=== PATIENT | male | born 1945 | race Caucasian/White ===

== ENCOUNTER 2021-04-10 19:54 | Inpatient (IN) | payer MEDICARE, OTHER ==
[~2021-04-10] VITALS: Ht 172.7 cm; Wt 85.3 kg
--- NOTE | 2021-04-10 20:25 | NUR ---
SISSY, C/O SPO2 IN THE 40'S AND SOB X3DAYS. SPO2 AT TRIAGE 80%. PATIENT WAS PLACED ON A NONREBREATHER AND RT WAS CALLED. PATIENT ALERT AND ORIENTED X3. AMBULATORY BUT BROUGHT IN ON A WHEELCHAIR. SON AT BEDSIDE
[2021-04-10] MEDS ORDERED: ASPIRIN 325 MG TABLET PO ONE (20:30)
[2021-04-10] MEDS ORDERED: SITA1TAB2 PO (20:36)
[2021-04-10] MEDS ORDERED: AZIT250T13 PO (20:37)
[2021-04-10] MEDS ORDERED: MEMA5TAB42 PO (20:38)
[2021-04-10] MEDS ORDERED: ROSU20TA2 PO (20:38)
[2021-04-10] MEDS ORDERED: FUROSEMIDE 40 MG/4 ML VIAL ONE (20:41)
[2021-04-10] MEDS ORDERED: NITROGLYCERIN 0.4 MG/TAB BOTTLE ONE (20:41)
[2021-04-10] MEDS ORDERED: ASPIRIN 325 MG TABLET ONE (20:41)
--- NOTE | 2021-04-10 20:43 | NUR ---
RAC #20G S/L; PATENT AND INTACT. BLOOD COLLECTED AND SENT TO LAB
--- NOTE | 2021-04-10 20:43 | NUR ---
PT ON NRB 15LPM TOLERATING AT 90%
--- NOTE | 2021-04-10 20:44 | NUR ---
RT AT BEDSIDE
--- NOTE | 2021-04-10 20:44 | NUR ---
BLOOD COLLECTED AND SENT TO LAB
--- NOTE | 2021-04-10 20:45 | NUR ---
COVID ANTIGEN SWAB COLLECTED AND SENT TO LAB
[2021-04-10] MEDS ORDERED: FUROSEMIDE 40 MG/4 ML VIAL IV ONE (21:00)
[2021-04-10] MEDS ORDERED: NITROGLYCERIN 0.4 MG/TAB BOTTLE SL ONE (21:00)
[2021-04-10 21:05] LABS: BASOPHILS # (AUTO) 0.1 K/uL (0.0-0.2); BASOPHILS % (AUTO) 0.4 % (0.0-2.0); EOSINOPHILS % (AUTO) 0.1 % (0.0-6.0); HEMATOCRIT 50 % (39-51); HEMOGLOBIN 15.9 g/dL (13.5-17.5); LYMPHOCYTES # (AUTO) 1.6 K/uL (0.8-4.8); LYMPHOCYTES % (AUTO) 11.1 % (20.0-44.0); MEAN CORPUSCULAR HGB CONC 32 g/dl (31.0-36.0); MEAN CORPUSCULAR VOLUME 90 fL (80-96); MONOCYTES # (AUTO) 0.9 K/uL (0.1-1.30); MONOCYTES % (AUTO) 6.4 % (2.0-12.0); NEUTROPHILS # (AUTO) 12.1 K/uL (1.8-8.9); PLATELET COUNT (AUTO) 349 K/uL (150-450); WHITE BLOOD COUNT (AUTO) 14.8 K/uL (4.3-11.0)
--- NOTE | 2021-04-10 21:07 | NUR ---
R D INTERN AT PT'S BEDSIDE
[2021-04-10 21:15] LABS: CALCIUM, SERUM 8.9 mg/dL (8.5-10.1); CARBON DIOXIDE 29 mmol/L (21-32); CHLORIDE 105 mmol/L (98-107); CREATININE 2.5 mg/dL (0.6-1.3); GLUCOSE 177 mg/dL (74-106); POTASSIUM 4.6 mmol/L (3.5-5.1); SODIUM SERUM 142 mmol/L (136-145); UREA NITROGEN, BLOOD 46 mg/dL (7-18)
[2021-04-10] MEDS ORDERED: ONDANSETRON HCL/PF 4 MG/2 ML VIAL ONE (21:38)
[2021-04-10] MEDS ORDERED: LIDOCAINE 1%-EPI 1:100,000 20 ML VIAL ONE (21:42)
[2021-04-10 21:50] LABS: BAND % (MANUAL) 1 % (0.0-5.0); LYMPHOCYTES % (MANUAL) 13 % (16-48); MONOCYTES % (MANUAL) 6 % (0-11.0); NEUTROPHILS % (MANUAL) 80 (42-76)
--- NOTE | 2021-04-10 21:52 | NUR ---
DR. LAW MEZA ON PHONE CALL WITH DR. REYES
[2021-04-10] MEDS ORDERED: ONDANSETRON HCL/PF - ER 4 MG/2 ML VIAL IV ONE (22:00)
--- NOTE | 2021-04-10 22:26 | NUR ---
DR LAW MEZA AT PT'S BEDSIDE FOR R PLEURAL THORACENTESIS; VERBAL CONSENT GIVEN. 1700ML FLUID REMOVED. PT TOLERATED PROCEDURE WELL. VSS
--- NOTE | 2021-04-10 22:51 | NUR ---
PERSON TO NOTIFIED 1.) ART (SON ) [phone] 2.) MARINE (DAUGHTER) [phone]
--- NOTE | 2021-04-10 23:08 | NUR ---
SHAKA CALI AT PT'S BEDSIDE FOR ABG
--- NOTE | 2021-04-10 23:17 | NUR ---
ABG RESULTED AND LAW AWARE
--- NOTE | 2021-04-10 23:25 | NUR ---
F/C 16FR INSERTED WITH URINE OUTPUT; PATENT AND INTACT
[2021-04-10] MEDS ORDERED: PROPOFOL 100 ML ONE (23:36)
--- NOTE | 2021-04-10 23:36 | NUR ---
MEDS FOR INTUBATION GIVEN
--- NOTE | 2021-04-10 23:37 | NUR ---
INTUBATION COMPLETED SIZE 7.5, 26 @ THE LIP
[2021-04-10] MEDS: PROPOFOL 100 ML IV PRN (23:38)
--- NOTE | 2021-04-10 23:38 | NUR ---
PT PUT ON VENT SETTINGS: FIO2 100 TV 550 RR 24 PEEP 5 PMAX 60 TOLERATING WELL AT SPO2 100%
--- NOTE | 2021-04-10 23:40 | NUR ---
RT NOTE LATE ENTRY Pt rec'd on NRB mask @ 15LPM. ABG taken and critical results given to MD. Pt orally intubated via ETT #7.5 secured @ 26CM at the lipline. Co2 detector color changed noted. Bilateral Breath sounds heard on auscultation. Pt placed on [facility] vent settings as charted. ALarms are set and audible. ETT is patent and secured. Waiting on chest Xray results. Post intubation ABG to be taken within 1hr. Ambu bag at bedside. Will continue to monitor closely. Addendum: 04/11/21 at 0049 by SHAKA HIRSCH RT Amended: Links added.
--- NOTE | 2021-04-10 23:40 | NUR ---
NGT 16FR INSERTED TO R NARE; POSITIVE PLACEMENT VIA AUSCULTATION & ASPIRATION.
[2021-04-11] MEDS ORDERED: Z GUARD REMEDY 4 OZ OINT TP PRN
[2021-04-11] MEDS ORDERED: IV NS 0.9% 1,000 ML IV PRN
[2021-04-11] MEDS ORDERED: MAG HYDROX/AL HYDROX/SIMETH 30 ML UDC PO PRN
[2021-04-11] MEDS ORDERED: ACETAMINOPHEN 325 MG TABLET PO PRN
[2021-04-11] MEDS ORDERED: ONDANSETRON HCL/PF 4 MG/2 ML VIAL IVP PRN
[2021-04-11] MEDS ORDERED: MAGNESIUM HYDROXIDE 30 ML UDC PO PRN
[2021-04-11] MEDS ORDERED: ZOLPIDEM TARTRATE 5 MG TABLET PO PRN
[2021-04-11] MEDS ORDERED: ETOMIDATE 2 MG/ML VIAL IV ONE ×2 (00:30→18:02)
[2021-04-11] MEDS ORDERED: ROCURONIUM BROMIDE 50 MG/5 ML IV ONE ×2 (00:30→18:02)
[2021-04-11] MEDS ORDERED: DEXTROSE 50%-WATER 50 ML DISP.SYRIN IV PRN ×2 (00:30→10:30)
[2021-04-11] MEDS ORDERED: INSULIN REGULAR, HUMAN 100 UNIT/ML 3 ML VIAL SQ PRN (00:30)
[2021-04-11] MEDS ORDERED: TRAM50TA2 PO (00:31)
[2021-04-11] MEDS ORDERED: PARO-64 PO (00:31)
[2021-04-11] MEDS ORDERED: ASPI-1420 PO (00:31)
[2021-04-11] MEDS ORDERED: AMLO1CAP2 PO (00:31)
[2021-04-11] MEDS ORDERED: FENO145T21 PO (00:31)
[2021-04-11] MEDS ORDERED: FOLI1CAP7 PO (00:31)
[2021-04-11] MEDS ORDERED: METO50TA16 PO (00:31)
[2021-04-11] MEDS ORDERED: CLOP75TA15 PO (00:31)
[2021-04-11] MEDS ORDERED: IBUP-1955 PO (00:31)
--- NOTE | 2021-04-11 00:32 | NUR ---
PT RETURNED TO ER FROM CT VIA ACLS PROTOCOL WITH RT
[2021-04-11] MEDS ORDERED: NOREPINEPHRINE 4 MG/4 ML AMPUL IV ONE (00:58)
[2021-04-11] MEDS ORDERED: NOREPINEPHRINE 8 MG in IV NS 0.9% 242 ML IV PRN ×2 (01:00→02:00)
[2021-04-11] MEDS: BLOOD SUGAR DIAGNOSTIC 1 EACH STRIP IN SCH ×6 (01:00→21:22)
[2021-04-11] MEDS ORDERED: ZOSYN IVPB 3.375 G in IV D5W 50ml IV SCH (02:00)
[2021-04-11] MEDS ORDERED: VANCOMYCIN 1.5 GM in IV D5W 500ml IV ONE (02:00)
[2021-04-11] MEDS ORDERED: PIPERACILLIN /TAZOBACTAM 3.375 G VIAL IV ONE (02:15)
[2021-04-11] MEDS ORDERED: VANCOMYCIN 1 GM VIAL ONE (02:15)
[2021-04-11] MEDS ORDERED: PROPOFOL 100 ML ONE ×4 (02:42→14:38)
[2021-04-11] MEDS ORDERED: VANCOMYCIN 500 MG VIAL ONE (02:47)
[2021-04-11 04:49] LABS: BASOPHILS # (AUTO) 0.1 K/uL (0.0-0.2); BASOPHILS % (AUTO) 0.2 % (0.0-2.0); HEMATOCRIT 47 % (39-51); HEMOGLOBIN 14.8 g/dL (13.5-17.5); LYMPHOCYTES # (AUTO) 1.6 K/uL (0.8-4.8); LYMPHOCYTES % (AUTO) 7.4 % (20.0-44.0); MEAN CORPUSCULAR HGB CONC 32 g/dl (31.0-36.0); MEAN CORPUSCULAR VOLUME 89 fL (80-96); MONOCYTES # (AUTO) 1.6 K/uL (0.1-1.30); MONOCYTES % (AUTO) 7.3 % (2.0-12.0); NEUTROPHILS % (AUTO) 85.1 % (43.0-81.0); PLATELET COUNT (AUTO) 335 K/uL (150-450); RED BLOOD CELL COUNT(AUTO) 5.28 MIL/uL (4.5-6.0); WHITE BLOOD COUNT (AUTO) 21.2 K/uL (4.3-11.0)
[2021-04-11 05:06] LABS: CALCIUM, SERUM 8.4 mg/dL (8.5-10.1); CARBON DIOXIDE 23 mmol/L (21-32); CHLORIDE 104 mmol/L (98-107); CREATININE 2.7 mg/dL (0.6-1.3); GLUCOSE 229 mg/dL (74-106); PHOSPHORUS 3.8 mg/dL (2.5-4.9); POTASSIUM 4.1 mmol/L (3.5-5.1); SODIUM SERUM 141 mmol/L (136-145); UREA NITROGEN, BLOOD 51 mg/dL (7-18)
[2021-04-11] MEDS ORDERED: FUROSEMIDE 40 MG/4 ML VIAL ONE ×2 (08:22→11:34)
[2021-04-11] MEDS ORDERED: HEPARIN SODIUM, PORCINE 5000 UNITS/1 ML VIAL ONE (08:22)
[2021-04-11] MEDS ORDERED: PANTOPRAZOLE 40 MG VIAL ONE (08:22)
[2021-04-11] MEDS: FUROSEMIDE 100 MG/10 ML VIAL IV SCH ×3 (08:30→15:43)
[2021-04-11] MEDS: PANTOPRAZOLE 40 MG VIAL IV SCH (08:31)
[2021-04-11] MEDS ORDERED: HEPARIN SODIUM, PORCINE 5000 UNITS/1 ML VIAL SQ ONE (09:00)
[2021-04-11] MEDS: PIPERACILLIN /TAZOBACTAM 3.375 G in IV D5W 100 ML IV SCH ×2 (09:43→17:37)
[2021-04-11] MEDS ORDERED: *INSULIN REGULAR(HUMULIN R)HUM 100 UNIT/ML VIAL SQ PRN (10:30)
--- NOTE | 2021-04-11 11:09 | NUR ---
SEEN BY DR MUIR
[2021-04-11] MEDS: BLOOD SUGAR DIAGNOSTIC 1 EACH STRIP VI SCH ×3 (11:32→21:26)
[2021-04-11] MEDS: INSULIN REGULAR, HUMAN 100 UNIT/ML 3 ML VIAL SQ PRN (11:35)
--- NOTE | 2021-04-11 13:28 | NUR ---
SPOKE TO PT DAUGHTER NEW [place]FFALO [phone]
--- NOTE | 2021-04-11 13:42 | NUR ---
COVID PCR SWAB DONE AND SENT TO LAB
[2021-04-11] MEDS ORDERED: FUROSEMIDE 100 MG/10 ML VIAL ONE (15:52)
--- NOTE | 2021-04-11 16:14 | NUR ---
SPOKE TO DAUGHTER DAJA RE PATIENT'S STATUS/UPDATE
--- NOTE | 2021-04-11 18:28 | NUR ---
MARINE DAUGHTER LEFT # [phone] / BRENDAN # [phone]
--- NOTE | 2021-04-11 20:30 | NUR ---
PT BP 131/66. LEVOPHED DRIP D/C
[2021-04-12] VITALS (7 sets, daily range): BP systolic 118–128; BP diastolic 60–78
[2021-04-12] MEDS: PIPERACILLIN /TAZOBACTAM 3.375 G in IV D5W 100 ML IV SCH ×3 (02:12→18:00)
[2021-04-12 05:44] LABS: BASOPHILS # (AUTO) 0.1 K/uL (0.0-0.2); BASOPHILS % (AUTO) 0.5 % (0.0-2.0); EOSINOPHILS % (AUTO) 0.2 % (0.0-6.0); HEMATOCRIT 45 % (39-51); HEMOGLOBIN 14.8 g/dL (13.5-17.5); LYMPHOCYTES # (AUTO) 1.5 K/uL (0.8-4.8); LYMPHOCYTES % (AUTO) 12.2 % (20.0-44.0); MEAN CORPUSCULAR HGB CONC 33 g/dl (31.0-36.0); MEAN CORPUSCULAR VOLUME 86 fL (80-96); MONOCYTES # (AUTO) 0.7 K/uL (0.1-1.30); MONOCYTES % (AUTO) 5.7 % (2.0-12.0); NEUTROPHILS # (AUTO) 9.9 K/uL (1.8-8.9); NEUTROPHILS % (AUTO) 81.4 % (43.0-81.0); PLATELET COUNT (AUTO) 250 K/uL (150-450); RED BLOOD CELL COUNT(AUTO) 5.24 MIL/uL (4.5-6.0); WHITE BLOOD COUNT (AUTO) 12.1 K/uL (4.3-11.0)
[2021-04-12 07:08] LABS: ALANINE AMINOTRANSFERASE 13 U/L (12-78); ALBUMIN 2.4 g/dL (3.4-5.0); ALKALINE PHOSPHATASE 35 U/L (46-116); ASPARTATE AMINOTRANSFERASE 10 U/L (15-37); BILIRUBIN,TOTAL 0.7 mg/dL (0.2-1.0); CALCIUM, SERUM 8.1 mg/dL (8.5-10.1); CARBON DIOXIDE 25 mmol/L (21-32); CHLORIDE 106 mmol/L (98-107); CREATININE 2.1 mg/dL (0.6-1.3); GLUCOSE 140 mg/dL (74-106); PHOSPHORUS 2.2 mg/dL (2.5-4.9); POTASSIUM 2.9 mmol/L (3.5-5.1); SODIUM SERUM 144 mmol/L (136-145); UREA NITROGEN, BLOOD 46 mg/dL (7-18)
[2021-04-12] MEDS: BLOOD SUGAR DIAGNOSTIC 1 EACH STRIP VI SCH ×3 (07:30→18:00)
[2021-04-12] MEDS ORDERED: PANTOPRAZOLE 40 MG VIAL ONE (07:49)
[2021-04-12] MEDS: POTASSIUM CHLORIDE 20 MEQ POWDER PACKET GT SCH ×4 (08:00→13:14)
[2021-04-12] MEDS: INSULIN REGULAR, HUMAN 100 UNIT/ML 3 ML VIAL SQ PRN ×4 (08:35→23:22)
[2021-04-12] MEDS ORDERED: ENOXAPARIN SODIUM 30 MG/0.3 ML DISP.SYRIN ONE (08:47)
[2021-04-12] MEDS: ENOXAPARIN SODIUM 30 MG/0.3 ML DISP.SYRIN SQ SCH (08:53)
--- NOTE | 2021-04-12 09:33 | NUR ---
SPOKE W RN IN ER REGARDING THE PATIENT THORACENTESIS, SHE WILL PLACE AN INR STAT, ALSO THE PROCEDURE WILL BE NOT DONE TODAY DUE TO LOVANOX, WAS GIVEN TODAY AT 08.30 AM. ALSO PRODUCT ARCHITECT WILL GET THE CONSENT FROM THE FAMILY TODAY
[2021-04-12] MEDS ORDERED: POTASSIUM CHLORIDE 20 MEQ POWDER PACKET ONE ×4 (09:41→12:53)
--- NOTE | 2021-04-12 09:45 | NUR ---
BLAS [phone]
--- NOTE | 2021-04-12 09:46 | NUR ---
UPDATE GIVEN TO DAUGHTER MARINE
[2021-04-12] MEDS: PANTOPRAZOLE 40 MG VIAL IV SCH (09:58)
[2021-04-12] MEDS ORDERED: PROPOFOL 100 ML ONE ×4 (10:10→19:34)
[2021-04-12] MEDS ORDERED: NEUTRA PHOS 1 POWD.PACKET GT ONE (12:00)
[2021-04-12] MEDS ORDERED: K PHOS NEUTRAL 250 MG TABLET ONE (12:19)
[2021-04-12] MEDS: PROPOFOL 100 ML IV PRN ×2 (13:44→20:17)
--- NOTE | 2021-04-12 13:44 | NUR ---
PROPROPFOL 50MCG/KG/MIN. TOLERATING WELL. UNAROUSABLE TO PAIN. VSS TOLERATING VENT SETTINGS WELL AT 100%
--- NOTE | 2021-04-12 13:53 | NUR ---
CORTISOL LEVEL 28.5 RECEIVED FROM FARNAZ. Justa MARRERO [employer] MADE AWARE.
[2021-04-12] MEDS ORDERED: VANCOMYCIN 1.25 GM in IV D5W 250 ML IV SCH (14:00)
[2021-04-12] MEDS: methylPREDNISolone SOD SUCC 40 MG/ML VIAL IV SCH (17:00)
[2021-04-12] MEDS ORDERED: methylPREDNISolone SOD SUCC 40 MG/ML VIAL ONE (17:47)
--- NOTE | 2021-04-12 18:07 | NUR ---
ASSIGNED TO 259. TO BE TRANSFERRED TO NEXT SHIFT
--- NOTE | 2021-04-12 19:01 | NUR ---
RT NOTE RECEIVED INTUBATED PT IN ER ON 7.5 26CM AT THE LIPLINE. WITH THE FOLLOWING ORDERED VENT SETTINGS. AC 24 550 80% +5. VENT PLUGGED INTO RED OUTLET AND ALARMS ON AND AUDIBLE. AMBU BAD AT HOB. NO INCREASED WOB NOTED. NO S/S OF ACUTE RESPIRATORY DISTRESS NOTED. WILL CONTINUE TO MONITOR TO SHIFT.
--- NOTE | 2021-04-12 20:20 | NUR ---
RECEIVED PT FORM ER VIA [facility] ORALLY INTUBATED WITH ETT 7.5/26 CM LIP WITH VENT SETTING AC 24 TV 550 FIO2 60 PEEP 5, NO SIGN OF RESPIRATORY DISTRESS, SAFELY TRANSFER FROM [facility] TO BED HOOKED TO MONITOR WITH READING SINUS RHYTHM 80'S V/S CHECKED AND RECORDED, HEAD TO TOE ASSESSMENT DONE PT HAVE RNARE NGTUBE PLACEMENT CHECKED AND VERIFIED, HAVE LIRA CATHETER DRAINING YELLOW URINE, HAVE BILATERAL SOFT WRIST RESTRAINTS CIRCULATION WILL BE MONITOR, BED ON LOWEST POSITION AND LOCKED SIDE RAILS UP X2 WILL CONT TO MONITOR
--- NOTE | 2021-04-12 20:31 | NUR ---
PT TRANSFERRED TO ICU 259 VIA ACLS PROTOCOL WITH RT. PT ON PROPROFOL 50MCG/KG/MIN; TOLERATING WELL. VSS. NOTIFIED ART (SON)
--- NOTE | 2021-04-12 20:32 | NUR ---
RT NOTE PT TRANSFERRED FROM ER BED 12 TO ICU 259. VENT PLUGGED INTO RED OUTLET. ALARMS ON AN AUDIBLE. AMBUBAG AT HOB. NO SOB OR S/S OF ACUTE RESPIRATORY DISTRESS NOTED. WILL CONTINUE TO MONITOR T/O SHIFT.
[2021-04-12] MEDS ORDERED: DEXTROSE 50%-WATER 50 ML DISP.SYRIN IV PRN (21:00)
[2021-04-12] MEDS: IV NS 0.9% 250 ML IV PRN (21:00)
[2021-04-12] MEDS: BLOOD SUGAR DIAGNOSTIC 1 EACH STRIP IN SCH (23:21)
[2021-04-13] VITALS (43 sets, daily range): BP systolic 111–166; BP diastolic 55–92
[2021-04-13] MEDS: PROPOFOL 100 ML IV PRN ×9 (01:05→23:44)
[2021-04-13] MEDS ORDERED: PIPERACILLIN /TAZOBACTAM 3.375 G VIAL IV ONE (01:23)
[2021-04-13] MEDS: PIPERACILLIN /TAZOBACTAM 3.375 G in IV D5W 100 ML IV SCH ×3 (01:46→17:15)
[2021-04-13 05:49] LABS: BASOPHILS % (AUTO) 0.1 % (0.0-2.0); HEMATOCRIT 44 % (39-51); HEMOGLOBIN 14.4 g/dL (13.5-17.5); LYMPHOCYTES # (AUTO) 0.9 K/uL (0.8-4.8); LYMPHOCYTES % (AUTO) 7.5 % (20.0-44.0); MEAN CORPUSCULAR HGB CONC 33 g/dl (31.0-36.0); MEAN CORPUSCULAR VOLUME 87 fL (80-96); MONOCYTES # (AUTO) 0.2 K/uL (0.1-1.30); NEUTROPHILS # (AUTO) 10.4 K/uL (1.8-8.9); NEUTROPHILS % (AUTO) 90.4 % (43.0-81.0); PLATELET COUNT (AUTO) 250 K/uL (150-450); RED BLOOD CELL COUNT(AUTO) 5.09 MIL/uL (4.5-6.0); WHITE BLOOD COUNT (AUTO) 11.5 K/uL (4.3-11.0)
[2021-04-13 06:05] LABS: ALANINE AMINOTRANSFERASE 14 U/L (12-78); ALBUMIN 2.3 g/dL (3.4-5.0); ALKALINE PHOSPHATASE 34 U/L (46-116); ASPARTATE AMINOTRANSFERASE 13 U/L (15-37); BILIRUBIN,TOTAL 0.7 mg/dL (0.2-1.0); CALCIUM, SERUM 8.4 mg/dL (8.5-10.1); CARBON DIOXIDE 26 mmol/L (21-32); CREATININE 1.8 mg/dL (0.6-1.3); GLUCOSE 194 mg/dL (74-106); MAGNESIUM 2.5 mg/dL (1.8-2.4); PHOSPHORUS 4.1 mg/dL (2.5-4.9); TOTAL PROTEIN, SERUM 6.4 g/dL (6.4-8.2); UREA NITROGEN, BLOOD 44 mg/dL (7-18)
[2021-04-13] MEDS: BLOOD SUGAR DIAGNOSTIC 1 EACH STRIP IN SCH ×4 (06:27→23:24)
[2021-04-13] MEDS: INSULIN REGULAR, HUMAN 100 UNIT/ML 3 ML VIAL SQ PRN ×4 (06:28→23:24)
[2021-04-13 06:41] LABS: CHLORIDE 107 mmol/L (98-107); POTASSIUM 3.3 mmol/L (3.5-5.1); SODIUM SERUM 148 mmol/L (136-145)
--- NOTE | 2021-04-13 07:59 | NUR ---
RT PATIENT REC'D ORALLY INTUBATED ON [facility] VENT WITH ORDERED SETTINGS. VENT ALARMS CHECKED + AUDIBLE. AIRWAY CHECKED + SECURE. AMBU BAG AT HOB. Addendum: 04/13/21 at 1623 by TG AGUILA RT Amended: Links added.
[2021-04-13] MEDS: PANTOPRAZOLE 40 MG VIAL IV SCH (08:51)
[2021-04-13] MEDS: methylPREDNISolone SOD SUCC 40 MG/ML VIAL IV SCH (08:51)
[2021-04-13] MEDS: ENOXAPARIN SODIUM 30 MG/0.3 ML DISP.SYRIN SQ SCH ×2 (09:00→15:16)
--- NOTE | 2021-04-13 09:52 | NUR ---
DR MARY HONG TO HOLD THE LOVENOX BECAUSE PT IS FOR POSSIBLE THORACENTESIS, PER DR MARY HONG TO DO THE THORACENTESIS TOMMOROW Addendum: 04/13/21 at 0955 by SELENA FERGUSON RN GELY TO DO THORACENTESIS ON 04/14/[address] HERNANDEZ
--- NOTE | 2021-04-13 10:16 | NUR ---
PER DR HERNANDEZ CANCEL THORACENTESIS FOR THIS PT,DUE TO IMPROVEMENT OF CHEST XRAY
--- NOTE | 2021-04-13 10:18 | NUR ---
SPOKE TO PRECIOUS WALTERS @ EXT [phone] REGARDING US GUIDED THORACENTESIS. NOTIFIED THAT THE INR IS TOO HIGH FOR PROCEDURE TO BE DONE. WILL REDRAW LABS TO SEE IF PROCEDURE CAN STILL BE DONE LATER TODAY. WILL FOLLOW UP LATER TODAY AND IF LABS ARE STILL HIGH, THEN PROCEDURE WILL BE DONE TOMORROW 04/14/21
--- NOTE | 2021-04-13 10:24 | NUR ---
SPOKE TO PRECIOUS WALTERS AGAIN TO MAKE SURE CONSENT IS SIGNED FOR US GUIDED THORA BUT I WAS INFORMED THAT ORDERING PHYSICIAN CANCELLED PROCEDURE
--- NOTE | 2021-04-13 11:19 | NUR ---
RT PER DR HERNANDEZ VENT SETTINGS CHANGED TO AC 18, 500, 40% +5 Addendum: 04/13/21 at 1119 by TG AGUILA RT Amended: Links added.
--- NOTE | 2021-04-13 11:28 | NUR ---
REPORTED TO HOSPITALIST CODEY MARRERO THAT PT SBP IS ON 150-160 CONSISTENTLY AND PT DOESNT HAVE ANY BP MEDICATION ON EMAR WITH ORDER FOR LABETALOL 10 MG IV Q8H PRN FOR SBP >160 NOTED AND CARRIED OUT
[2021-04-13] MEDS ORDERED: hydrALAZINE HCL IV 20 MG VIAL IV PRN (11:30)
[2021-04-13] MEDS ORDERED: POTASSIUM CL. PREMIX PERIPHER. 50 ML IV SCH (12:00)
--- NOTE | 2021-04-13 12:45 | NUR ---
PT HEARING AID AND HOME MEDICATION GAVE TO DAUGHTER MARINE
[2021-04-13] MEDS ORDERED: VANCOMYCIN 1.25 GM in IV D5W 250 ML IV SCH (14:00)
--- NOTE | 2021-04-13 18:56 | NUR ---
PT ON BED STILL ORALLY INTUBATED VENT SETTING PER MD FIO2 40% PEEP 5 SPO2 98% NO RESPIRATORY DISTRESS NOTED TELE MONITOR READS SINUS RHYTHM 80'S WITH EPISODES OF PVC'S STILL ON PROPOFOL @ 50 MCG/KG/MIN INFUSING WELL VIA RSUBCLAVIAN 3LUMEN CATHETER, LIRA CATHETER DRAINING YELLOW URINE ALL NEEDS ATTENDED BED ON LOWEST POSITION AND LOCKED SIDE RAILS UP X2 WILL CONT TO MONITOR
[2021-04-14] VITALS (27 sets, daily range): BP systolic 113–164; BP diastolic 60–85
[2021-04-14 00:54] LABS: ABG BASE EXCESS 1.5 mmol/L; ABG OXYGEN SATURATION 98.9 % (92.0-98.5); ABG PCO2 33.4 mmHg (35.0-45.0); ABG PO2 167.4 mmHg (75.0-100.0); AaDO2 295.8 mmHg; COHb 0.2 % (0.5-1.5); MetHb 0.3 % (0.0-1.5); O2Hb 98.4 % (94.0-97.0); SITE, ABG Right Radial
[2021-04-14] MEDS: PIPERACILLIN /TAZOBACTAM 3.375 G in IV D5W 100 ML IV SCH ×3 (01:28→17:18)
[2021-04-14] MEDS: PROPOFOL 100 ML IV PRN ×7 (02:36→23:40)
[2021-04-14] MEDS: IV NS 0.9% 250 ML IV PRN (04:43)
[2021-04-14 05:13] LABS: CALCIUM, SERUM 8.1 mg/dL (8.5-10.1); CARBON DIOXIDE 30 mmol/L (21-32); CHLORIDE 109 mmol/L (98-107); CREATININE 1.6 mg/dL (0.6-1.3); GLUCOSE 169 mg/dL (74-106); MAGNESIUM 2.6 mg/dL (1.8-2.4); PHOSPHORUS 4.8 mg/dL (2.5-4.9); POTASSIUM 3.5 mmol/L (3.5-5.1); SODIUM SERUM 146 mmol/L (136-145); UREA NITROGEN, BLOOD 49 mg/dL (7-18)
[2021-04-14 05:21] LABS: BASOPHILS % (AUTO) 0.1 % (0.0-2.0); EOSINOPHILS % (AUTO) 0.2 % (0.0-6.0); HEMATOCRIT 43 % (39-51); HEMOGLOBIN 13.9 g/dL (13.5-17.5); LYMPHOCYTES # (AUTO) 1.1 K/uL (0.8-4.8); MEAN CORPUSCULAR HGB CONC 32 g/dl (31.0-36.0); MEAN CORPUSCULAR VOLUME 87 fL (80-96); MONOCYTES # (AUTO) 0.8 K/uL (0.1-1.30); MONOCYTES % (AUTO) 6.3 % (2.0-12.0); NEUTROPHILS # (AUTO) 10.3 K/uL (1.8-8.9); NEUTROPHILS % (AUTO) 84.4 % (43.0-81.0); PLATELET COUNT (AUTO) 257 K/uL (150-450); RED BLOOD CELL COUNT(AUTO) 4.96 MIL/uL (4.5-6.0); WHITE BLOOD COUNT (AUTO) 12.2 K/uL (4.3-11.0)
[2021-04-14] MEDS: BLOOD SUGAR DIAGNOSTIC 1 EACH STRIP IN SCH ×3 (05:23→17:19)
[2021-04-14] MEDS: INSULIN REGULAR, HUMAN 100 UNIT/ML 3 ML VIAL SQ PRN (05:29)
--- NOTE | 2021-04-14 08:05 | NUR ---
RN OPENING NOTE PATIENT RECEIVED IN BED, INTUBATED AND SEDATED. PATIENT SATURATING 99% ON BEDSIDE MONITOR WITH NO SIGNS OF LABORED BREATHING. NG TUBE IN PLACE ON INTERMITTENT SUCTION. LIRA CATHETER IN PLACE, PATENT AND DRAINING TEA COLOR URINE. BILATERAL SOFT WRIST RESTRAINS IN BED, SKIN WARM AND INTACT. NPO STATUS AT THIS TIME. LEFT AC AND RIGHT AC PIV IN PLACE, RIGHT CHEST WALL 3L CATHETER IN PLACE. BED LOCKED AND IN LOWEST POSITION, CALL LIGHT WITHIN REACH, 2 SIDE RAILS UP. WILL CONTINUE TO MONITOR.
[2021-04-14] MEDS: PANTOPRAZOLE 40 MG VIAL IV SCH (09:05)
[2021-04-14] MEDS: ENOXAPARIN SODIUM 30 MG/0.3 ML DISP.SYRIN SQ SCH (09:05)
--- NOTE | 2021-04-14 11:42 | NUR ---
RN NOTE PROPOFOL DRIP LOWERED PER WEANING PROTOCOL PER DR. HERNANDEZ ORDER TO ASSESS MENTAL STATUS OFF SEDATION. WILL CONTINUE TO WEAN MEDICATION. WILL CONTINUE TO MONITOR.
--- NOTE | 2021-04-14 14:12 | NUR ---
RN NOTE PATIENT WEANED OFF OF PROPOFOL DRIP FOR RT ASSESSMENT. PATIENT ABLE TO FOLLOW SIMPLE COMMAND. RT STATE PATIENT UNABLE TO BE WEANED OF VENT AT THIS TIME. PROPOFOL DRIP RESTARTED. WILL CONTINUE TO MONITOR.
--- NOTE | 2021-04-14 14:17 | NUR ---
RT pt weaned off sedation but unable to wean off vent to be extubated at this time. pt followed simple commands but unable to maintain adequate volumes sufficient to wean. pt back on AC. will continue to monitor
--- NOTE | 2021-04-14 18:53 | NUR ---
RN CLOSING NOTE PATIENT REMAINS IN BED, INTUBATED AND SEDATED. PATIENT SATURATING 98% ON BEDSIDE MONITOR WITH NO SIGNS OF LABORED BREATHING. NG TUBE IN PLACE. LIRA CATHETER IN PLACE, PATENT AND DRAINING DARK TEA COLOR URINE. BILATERAL SOFT WRIST RESTRAINS ON, SKIN WARM AND INTACT. NPO STATUS AT THIS TIME WITH FREE WATER FLUSH Q4H. LEFT AC AND RIGHT AC PIV IN PLACE, RIGHT CHEST WALL 3L CATHETER IN PLACE. BED LOCKED AND IN LOWEST POSITION, CALL LIGHT WITHIN REACH, 2 SIDE RAILS UP. WILL ENDORSE TO RETENTION SPECIALIST NURSE.
--- NOTE | 2021-04-14 19:56 | NUR ---
RN NOTE PATIENT IN BED SEDATED ON DIPRIVAN @ 45MC/KG/MIN. ORALLY INTUBATED, TOLERATING MECHANICAL VENT SETTINGS WELL. O2 SAT 99%. PATIENT HAS A CLAMPED RIGHT NG-TUBE, SECURED. LIRA CATH DRAINING DARK TEA COLORED URINE VIA GRAVITY. BILATERAL SOFT WRIST RESTRAINTS NOTED, NO S/S OF ANY SKIN BREAKDOWN. IV ACCESS LAC, RAC, AND RIGHT SUBCLAVIAN TRIPLE LUMEN CATH, PATENT AND INTACT. BED LOCKED AND IN LOWEST POSITION. CALL LIGHT WITHIN REACH. WILL CONTINUE TO MONITOR.
[2021-04-15] VITALS (34 sets, daily range): BP systolic 124–169; BP diastolic 60–93
[2021-04-15] MEDS: INSULIN REGULAR, HUMAN 100 UNIT/ML 3 ML VIAL SQ PRN ×3 (00:15→23:46)
[2021-04-15] MEDS: BLOOD SUGAR DIAGNOSTIC 1 EACH STRIP IN SCH ×5 (00:15→23:46)
[2021-04-15] MEDS: PIPERACILLIN /TAZOBACTAM 3.375 G in IV D5W 100 ML IV SCH ×3 (01:47→17:50)
[2021-04-15] MEDS: PROPOFOL 100 ML IV PRN ×6 (03:15→21:26)
[2021-04-15 05:19] LABS: BASOPHILS % (AUTO) 0.2 % (0.0-2.0); EOSINOPHILS % (AUTO) 2.7 % (0.0-6.0); HEMATOCRIT 45 % (39-51); HEMOGLOBIN 14.4 g/dL (13.5-17.5); LYMPHOCYTES # (AUTO) 1.5 K/uL (0.8-4.8); LYMPHOCYTES % (AUTO) 14.6 % (20.0-44.0); MEAN CORPUSCULAR HGB CONC 32 g/dl (31.0-36.0); MEAN CORPUSCULAR VOLUME 87 fL (80-96); MONOCYTES # (AUTO) 0.8 K/uL (0.1-1.30); MONOCYTES % (AUTO) 8.2 % (2.0-12.0); NEUTROPHILS # (AUTO) 7.7 K/uL (1.8-8.9); NEUTROPHILS % (AUTO) 74.3 % (43.0-81.0); PLATELET COUNT (AUTO) 246 K/uL (150-450); WHITE BLOOD COUNT (AUTO) 10.3 K/uL (4.3-11.0)
[2021-04-15 06:26] LABS: CALCIUM, SERUM 8.3 mg/dL (8.5-10.1); CARBON DIOXIDE 28 mmol/L (21-32); CHLORIDE 109 mmol/L (98-107); CREATININE 1.2 mg/dL (0.6-1.3); GLUCOSE 112 mg/dL (74-106); POTASSIUM 3.2 mmol/L (3.5-5.1); SODIUM SERUM 145 mmol/L (136-145); UREA NITROGEN, BLOOD 42 mg/dL (7-18)
[2021-04-15 06:27] LABS: MAGNESIUM 2.6 mg/dL (1.8-2.4)
--- NOTE | 2021-04-15 06:50 | NUR ---
RN NOTE PATIENT SEDATED ON DIPRIVAN @ 45MCG/KG/MIN. INTUBATED, TOLERATING MECHANICAL VENT SETTINGS WELL. O2 SAT 95%. LIRA CATH DRAINED DARK TEA COLORED URINE 800CC. BILATERAL SOFT WRIST RESTRAINTS NOTED, NO S/S OF ANY SKIN BREAKDOWN. IV ACCESS LAC, RAC, AND RIGHT SUBCLAVIAN TRIPLE LUMEN CATH, PATENT AND INTACT. NO SIGNIFICANT CHANGES DURING THIS SHIFT. TURNED AND REPOSITIONED. BED LOCKED AND IN LOWEST POSITION. CALL LIGHT WITHIN REACH. WILL ENDORSE TO AM SHIFT.
--- NOTE | 2021-04-15 07:30 | NUR ---
OPENING NOTE. REPORT RECEIVED FROM RADHIKA LANG. PT APPEARS TO BE STABLE AND SEDATED ON PROPOFOL. WILL CONTINUE TO MONITOR.
[2021-04-15] MEDS ORDERED: POTASSIUM CHLORIDE 20 MEQ TAB.PRT.SR PO SCH (09:00)
[2021-04-15] MEDS: CLOPIDOGREL BISULFATE 75 MG TABLET PO SCH (10:25)
[2021-04-15] MEDS: POTASSIUM CL. PREMIX PERIPHER. 50 ML IV SCH ×4 (10:46→14:57)
[2021-04-15] MEDS: PANTOPRAZOLE 40 MG VIAL IV SCH (10:47)
[2021-04-15] MEDS: ENOXAPARIN SODIUM 30 MG/0.3 ML DISP.SYRIN SQ SCH (10:48)
[2021-04-15] MEDS: METOPROLOL TARTRATE 50 MG TABLET PO SCH (17:50)
[2021-04-15] MEDS: MEMANTINE HCL 5 MG TABLET PO SCH (17:50)
--- NOTE | 2021-04-15 19:20 | NUR ---
END OF SHIFT NOTE. PT FAILED WEANING TRIAL TODAY. RE-SEDATED W/O DIFFICULTY PER MD ORDERS. 40MEQ POTASSIUM GIVEN TODAY PER MD ORDERS. PT CHECKED ON HOURLY AND PRN BY NURSING STAFF.
--- NOTE | 2021-04-15 19:40 | NUR ---
RN NOTE PATIENT SEDATED ON DIPRIVAN @ 45MC/KG/MIN. ORALLY INTUBATED, TOLERATING MECHANICAL VENT SETTINGS WELL. NO S/S OF DISTRESS. PATIENT NOTED WITH CLAMPED RIGHT NG-TUBE. PATENT AND INTACT. LIRA CATH DRAINING DARK TEA COLORED URINE VIA GRAVITY. BILATERAL SOFT WRIST RESTRAINTS NOTED, NO S/S OF ANY SKIN BREAKDOWN. IV ACCESS LAC, RAC, AND RIGHT SUBCLAVIAN TRIPLE LUMEN CATH, PATENT AND INTACT. BED LOCKED AND IN LOWEST POSITION. CALL LIGHT WITHIN REACH. WILL CONTINUE TO MONITOR.
[2021-04-16] VITALS (37 sets, daily range): BP systolic 105–166; BP diastolic 50–85
[2021-04-16] MEDS: PROPOFOL 100 ML IV PRN ×6 (01:05→20:10)
[2021-04-16] MEDS: PIPERACILLIN /TAZOBACTAM 3.375 G in IV D5W 100 ML IV SCH ×3 (02:00→17:37)
[2021-04-16] MEDS: BLOOD SUGAR DIAGNOSTIC 1 EACH STRIP IN SCH ×4 (05:22→23:54)
[2021-04-16] MEDS: INSULIN REGULAR, HUMAN 100 UNIT/ML 3 ML VIAL SQ PRN ×2 (05:23→23:58)
[2021-04-16 05:38] LABS: CALCIUM, SERUM 8.5 mg/dL (8.5-10.1); CARBON DIOXIDE 31 mmol/L (21-32); CHLORIDE 108 mmol/L (98-107); CREATININE 1.3 mg/dL (0.6-1.3); GLUCOSE 113 mg/dL (74-106); POTASSIUM 3.1 mmol/L (3.5-5.1); SODIUM SERUM 144 mmol/L (136-145); UREA NITROGEN, BLOOD 34 mg/dL (7-18)
--- NOTE | 2021-04-16 07:22 | NUR ---
RN NOTE PATIENT SEDATED ON DIPRIVAN @ 45MC/KG/MIN. ORALLY INTUBATED, TOLERATING MECHANICAL VENT SETTINGS WELL O2 SAT 97%. LIRA CATH DRAINED 1700CC DARK TEA COLORED URINE. BILATERAL SOFT WRIST RESTRAINTS NOTED, NO S/S OF ANY SKIN BREAKDOWN. IV ACCESS LAC, RAC, AND RIGHT SUBCLAVIAN TRIPLE LUMEN CATH, PATENT AND INTACT. TURNED AND REPOSITIONED. DUE MEDS GIVEN ORDERED. BED LOCKED AND IN LOWEST POSITION. CALL LIGHT WITHIN REACH. WILL ENDORSE TO AM SHIFT.
[2021-04-16] MEDS ORDERED: POTASSIUM CHLORIDE 20 MEQ POWDER PACKET GT SCH (07:30)
--- NOTE | 2021-04-16 08:00 | NUR ---
RN NOTES RECEIVED PATIENT ETT.VENT WITH DIPRIVAN SEDATION 45MCG/KG/HR. PATIENT TOLERATING SETTING WELL O2-96%, NO ACUTE RESPIRATORY DISTRESS, FIO2-30%, PEEP-5. PATIENT NGT CLAMPED, NPO. [id number] ON BEDSIDE MONITOR SHOWS. PATIENT HAS DARK URINE WITH BROWN SEDIMENTS , FLASHED WITH SYRINGE 50ML, KEEP HOB ELEVATED.IV ACCESS ON RIGHT UPPER CHEST, LEFT AC. PATIENT HAS EDEMA BILATERAL BOTH HANDS. SUCTION, MOUTH CARE DONE. AM MEDICATION ADMINISTERED VIA NGT. WILL FOLLOW UP.
[2021-04-16] MEDS: POTASSIUM CL. PREMIX PERIPHER. 50 ML IV SCH ×4 (08:44→11:52)
[2021-04-16] MEDS: METOPROLOL TARTRATE 50 MG TABLET PO SCH ×2 (08:45→17:42)
[2021-04-16] MEDS: CLOPIDOGREL BISULFATE 75 MG TABLET PO SCH (08:45)
[2021-04-16] MEDS: PANTOPRAZOLE 40 MG VIAL IV SCH (08:45)
[2021-04-16] MEDS: PAROXETINE HCL 20 MG TABLET PO SCH (08:45)
[2021-04-16] MEDS: FENOFIBRATE NANOCRYS (145 MG) 145 MG TABLET PO SCH (08:45)
[2021-04-16] MEDS: ASPIRIN EC 81 MG TABLET.DR PO SCH (08:45)
[2021-04-16] MEDS: MEMANTINE HCL 5 MG TABLET PO SCH ×2 (08:45→17:42)
[2021-04-16] MEDS: ENOXAPARIN SODIUM 30 MG/0.3 ML DISP.SYRIN SQ SCH (09:07)
[2021-04-16 09:22] LABS: BASOPHILS % (AUTO) 0.4 % (0.0-2.0); EOSINOPHILS % (AUTO) 3.9 % (0.0-6.0); HEMATOCRIT 45 % (39-51); HEMOGLOBIN 14.6 g/dL (13.5-17.5); LYMPHOCYTES # (AUTO) 1.3 K/uL (0.8-4.8); LYMPHOCYTES % (AUTO) 12.3 % (20.0-44.0); MEAN CORPUSCULAR HGB CONC 32 g/dl (31.0-36.0); MEAN CORPUSCULAR VOLUME 87 fL (80-96); NEUTROPHILS % (AUTO) 74.4 % (43.0-81.0); PLATELET COUNT (AUTO) 233 K/uL (150-450); RED BLOOD CELL COUNT(AUTO) 5.15 MIL/uL (4.5-6.0); WHITE BLOOD COUNT (AUTO) 10.7 K/uL (4.3-11.0)
[2021-04-16 09:41] LABS: ALBUMIN 2.2 g/dL (3.4-5.0); CALCIUM, SERUM 8.4 mg/dL (8.5-10.1); CREATININE 1.2 mg/dL (0.6-1.3); POTASSIUM 3.3 mmol/L (3.5-5.1); TOTAL PROTEIN, SERUM 6.2 g/dL (6.4-8.2)
--- NOTE | 2021-04-16 09:50 | NUR ---
RN NOTES GET ORDER STOP SEDATION WEANING FRON VENT PER Dr HERNANDEZ AT THIS TIME. RT AWARE OF.
--- NOTE | 2021-04-16 10:31 | NUR ---
RN NOTES SEDATION TITRATED UP PER PROTOCOL UNABLE TO TOLERATED WEANING , BP INCREASED 166/ 85, P-88. WILL FOLLOW UP.
--- NOTE | 2021-04-16 14:30 | NUR ---
RN NOTES PATIENT HAVING BLOODY URINE, NOTIFIED DR COLLIER, AND GET TO ORDER START IV BLADDER IRRIGATION, AND STAT H /H, ORDER TAKEN AND CARRIED OUT.
--- NOTE | 2021-04-16 15:36 | NUR ---
RN NOTES STARTED IV HANGING BLADDER IRRIGATION AT THIS TIME, CHANGED TRIPLE LUMEN CATHETER , ALSO PUT ORDERED STAT H/H PER MD GAMA . WILL FOLLOW UP.
[2021-04-16] MEDS: IV NS 0.9% 250 ML IV PRN (16:32)
[2021-04-16 16:35] LABS: HEMOGLOBIN 14.8 g/dL (13.5-17.5)
[2021-04-16] MEDS: JEVITY 1.2 CAL 1,000 ML BOTTLE GT PRN (17:42)
--- NOTE | 2021-04-16 18:35 | NUR ---
rn notes pm care done, suction, mouth care, bs-129 mg/dl no coverage, patient sedated, off of isolation. started jevity 1.2 @20ml/hr, keep hob elevated, for aspiration precaution. patient on bladder irrigation because of bleeding, H/H result was 14.8, notified hospitalist. Also seen patient via fluid power mechanic Dr Ybarra , per MD he will put new orders. Patient on sedation Diprivan 40mcg/kg/hr intact. assist turn and reposition q 2 hr. Endorsed oncoming RN phyllis.
[2021-04-17] VITALS (38 sets, daily range): BP systolic 108–171; BP diastolic 57–111
[2021-04-17] MEDS: PROPOFOL 100 ML IV PRN ×7 (00:21→23:23)
[2021-04-17] MEDS: PIPERACILLIN /TAZOBACTAM 3.375 G in IV D5W 100 ML IV SCH ×2 (01:55→09:10)
[2021-04-17 04:57] LABS: ALANINE AMINOTRANSFERASE 18 U/L (12-78); ALKALINE PHOSPHATASE 37 U/L (46-116); ASPARTATE AMINOTRANSFERASE 18 U/L (15-37); CALCIUM, SERUM 8.3 mg/dL (8.5-10.1); CARBON DIOXIDE 29 mmol/L (21-32); CHLORIDE 107 mmol/L (98-107); CREATININE 1.3 mg/dL (0.6-1.3); GLUCOSE 135 mg/dL (74-106); POTASSIUM 3.9 mmol/L (3.5-5.1); SODIUM SERUM 143 mmol/L (136-145); UREA NITROGEN, BLOOD 31 mg/dL (7-18)
[2021-04-17 05:01] LABS: BASOPHILS # (AUTO) 0.2 K/uL (0.0-0.2); BASOPHILS % (AUTO) 1.3 % (0.0-2.0); EOSINOPHILS % (AUTO) 3.8 % (0.0-6.0); HEMATOCRIT 44 % (39-51); LYMPHOCYTES # (AUTO) 1.4 K/uL (0.8-4.8); LYMPHOCYTES % (AUTO) 11.9 % (20.0-44.0); MEAN CORPUSCULAR HGB CONC 32 g/dl (31.0-36.0); MEAN CORPUSCULAR VOLUME 87 fL (80-96); MONOCYTES % (AUTO) 8.3 % (2.0-12.0); NEUTROPHILS # (AUTO) 8.9 K/uL (1.8-8.9); NEUTROPHILS % (AUTO) 74.7 % (43.0-81.0); PLATELET COUNT (AUTO) 249 K/uL (150-450); RED BLOOD CELL COUNT(AUTO) 5.01 MIL/uL (4.5-6.0); WHITE BLOOD COUNT (AUTO) 11.9 K/uL (4.3-11.0)
[2021-04-17] MEDS: BLOOD SUGAR DIAGNOSTIC 1 EACH STRIP IN SCH ×4 (05:57→23:43)
[2021-04-17] MEDS: INSULIN REGULAR, HUMAN 100 UNIT/ML 3 ML VIAL SQ PRN ×3 (05:58→23:57)
--- NOTE | 2021-04-17 08:00 | NUR ---
rn notes patient ETT/vent with sedation, no acute respiratory distress, rechecked risidual 20ml, keep hob elevated for aspiration precaution, due medication administered, suction, mouth care done, infusing diprivan 40mcg/kg/hr, and kcl 50ml/hr on right uper chest triple cath intact. patient has bladder irrigation, noted blood in the urine. assist turn and repostion q 2 hr. will follow up.
[2021-04-17] MEDS: PANTOPRAZOLE 40 MG VIAL IV SCH (08:51)
[2021-04-17] MEDS: PAROXETINE HCL 20 MG TABLET PO SCH (08:51)
[2021-04-17] MEDS: FENOFIBRATE NANOCRYS (145 MG) 145 MG TABLET PO SCH (08:52)
[2021-04-17] MEDS: MEMANTINE HCL 5 MG TABLET PO SCH ×2 (08:52→16:30)
[2021-04-17] MEDS: METOPROLOL TARTRATE 50 MG TABLET PO SCH ×2 (08:53→16:30)
[2021-04-17] MEDS: POTASSIUM CL. PREMIX PERIPHER. 50 ML IV SCH ×4 (08:54→12:46)
[2021-04-17] MEDS: CLOPIDOGREL BISULFATE 75 MG TABLET PO SCH (09:00)
[2021-04-17] MEDS: ASPIRIN EC 81 MG TABLET.DR PO SCH (09:00)
[2021-04-17] MEDS: ENOXAPARIN SODIUM 30 MG/0.3 ML DISP.SYRIN SQ SCH (09:00)
[2021-04-17] MEDS ORDERED: BUMETANIDE INJ 8 MG in IV NS 0.9% 48 ML IV ONE (09:00)
--- NOTE | 2021-04-17 09:00 | NUR ---
RN NOTES HELD ASPIRIN, PLAVIX, AND LOVENOX MEDICATIONS, BECAUSE PATIENT BLEEDING FROM LIRA. HOSPITALIST AWARE OF.
--- NOTE | 2021-04-17 10:55 | NUR ---
RN NOTES GET TO ORDER FROM DR HERNANDEZ STOP SEDATION FOR WEANING FROM VENT, ORDER TAKEN AND CARRIED OUT, RT NOTIFIED, TITRATING MEDICATION PER PROTOCOL. WILL FOLLOW UP.
--- NOTE | 2021-04-17 11:55 | NUR ---
rn notes patient fail weaning from vent, bp increased 151/111, restarted sedation back per Dr Garcia's order. will follow up.
[2021-04-17] MEDS: ALBUMIN 25% 25 GM in PREMIX 1 EA IV SCH ×2 (12:50→23:43)
[2021-04-17] MEDS: JEVITY 1.2 CAL 1,000 ML BOTTLE GT PRN (16:16)
--- NOTE | 2021-04-17 18:20 | NUR ---
RN NOTES PATIENT PM CARE DONE, SUCTION, MOUTH CARE, BS-123 MG/DL, PATIENT SEDATED, NO ACUTE RESPIRATORY DISTRESS. PATIENT URINE IS CLEAR, NO BLEEDING NOTED STOP BLADDER IRRIGATION. ENDORSED ONCOMING NURSE FOLLOW DARYL OF CARE.
[2021-04-18] VITALS (39 sets, daily range): BP systolic 121–166; BP diastolic 62–84
[2021-04-18] MEDS: PROPOFOL 100 ML IV PRN ×6 (03:07→23:32)
[2021-04-18] MEDS: IV NS 0.9% 250 ML IV PRN (04:01)
[2021-04-18 04:36] LABS: BASOPHILS % (AUTO) 0.2 % (0.0-2.0); HEMATOCRIT 41 % (39-51); HEMOGLOBIN 13.3 g/dL (13.5-17.5); LYMPHOCYTES # (AUTO) 1.5 K/uL (0.8-4.8); LYMPHOCYTES % (AUTO) 11.6 % (20.0-44.0); MEAN CORPUSCULAR HGB CONC 32 g/dl (31.0-36.0); MEAN CORPUSCULAR VOLUME 87 fL (80-96); MONOCYTES # (AUTO) 1.2 K/uL (0.1-1.30); MONOCYTES % (AUTO) 9.6 % (2.0-12.0); NEUTROPHILS # (AUTO) 9.6 K/uL (1.8-8.9); NEUTROPHILS % (AUTO) 75.6 % (43.0-81.0); PLATELET COUNT (AUTO) 266 K/uL (150-450); RED BLOOD CELL COUNT(AUTO) 4.72 MIL/uL (4.5-6.0); WHITE BLOOD COUNT (AUTO) 12.7 K/uL (4.3-11.0)
[2021-04-18 04:56] LABS: ALANINE AMINOTRANSFERASE 10 U/L (12-78); ALBUMIN 2.8 g/dL (3.4-5.0); ALKALINE PHOSPHATASE 38 U/L (46-116); ASPARTATE AMINOTRANSFERASE 10 U/L (15-37); BILIRUBIN,TOTAL 0.9 mg/dL (0.2-1.0); CALCIUM, SERUM 8.7 mg/dL (8.5-10.1); CARBON DIOXIDE 31 mmol/L (21-32); CHLORIDE 104 mmol/L (98-107); CREATININE 1.5 mg/dL (0.6-1.3); GLUCOSE 129 mg/dL (74-106); POTASSIUM 3.6 mmol/L (3.5-5.1); SODIUM SERUM 141 mmol/L (136-145); TOTAL PROTEIN, SERUM 6.5 g/dL (6.4-8.2); UREA NITROGEN, BLOOD 34 mg/dL (7-18)
[2021-04-18] MEDS: BLOOD SUGAR DIAGNOSTIC 1 EACH STRIP IN SCH ×4 (05:37→23:22)
[2021-04-18] MEDS: INSULIN REGULAR, HUMAN 100 UNIT/ML 3 ML VIAL SQ PRN ×3 (05:40→23:23)
--- NOTE | 2021-04-18 08:00 | NUR ---
RN NOTES PATIENT HAS REDNESS ON PERINEAL AREA, WOUND CONSULT TRIGGERED, CARE PLAN DONE. ASSIST TURN AND REPOSTION Q 2 HR, RESIFDUAL WAS 10ML, KEEP HOB ELEVATED FOR ASPIRATION PRECAUTION, CHEST X-RAY DONE, NO BLEEDING NOTES. DUE MEDICATION ADMINISTERED. WILL FOLLOW UP. SEEN PATIENT VIA HOSPITALIST DR JOHNSON, NEW ORDER IS FOLLOW UP.
--- NOTE | 2021-04-18 08:08 | NUR ---
WOUND CARE CONSULT: PT PRESENTS WITH RASH TO PERINEUM, INNER THIGHS AND SCROTUM. RECOMMENDATIONS MADE FOR SKIN PROTECTION AND CARE. DISCUSSED WITH NURSING STAFF. PT IS CURRENTLY INTUBATED. FIRST STEP LOW AIRLOSS MATTRESS IS ON ORDER. MD IN AGREEMENT WITH PLAN OF CARE.
[2021-04-18] MEDS: PANTOPRAZOLE 40 MG VIAL IV SCH (08:39)
[2021-04-18] MEDS: CLOPIDOGREL BISULFATE 75 MG TABLET PO SCH (08:39)
[2021-04-18] MEDS: MEMANTINE HCL 5 MG TABLET PO SCH (08:39)
[2021-04-18] MEDS: METOPROLOL TARTRATE 50 MG TABLET PO SCH ×2 (08:39→16:37)
[2021-04-18] MEDS: PAROXETINE HCL 20 MG TABLET PO SCH (08:39)
[2021-04-18] MEDS: FENOFIBRATE NANOCRYS (145 MG) 145 MG TABLET PO SCH (08:40)
[2021-04-18] MEDS: POTASSIUM CHLORIDE 20 MEQ TAB.PRT.SR PO SCH ×3 (08:42→12:08)
[2021-04-18] MEDS: ASPIRIN EC 81 MG TABLET.DR PO SCH (08:43)
[2021-04-18] MEDS: FUROSEMIDE 100 MG/10 ML VIAL IV SCH ×3 (08:43→16:37)
[2021-04-18] MEDS: ENOXAPARIN SODIUM 30 MG/0.3 ML DISP.SYRIN SQ SCH (08:45)
--- NOTE | 2021-04-18 10:10 | NUR ---
RN NOTES SEEN PATIENT VIA PULMONALOGIST, NEW ORDER IS WEANING FROM WENT . RT NOTIFIED. TITRATED SEDATION VIA PROTOCOL WILL FOLLOW UP.
--- NOTE | 2021-04-18 11:00 | NUR ---
RT NOTE SBT DONE WITH MD BEDSIDE. AFTER 10MINUTES PATIENT WOB INCREASED. TACHYPNEA AND TACHYCARDIA NOTED. SBT STOPPED AND RESUMED AC VENTILATION.
[2021-04-18] MEDS: CLOTRIMAZOLE 1% 15 GM TUBE TP SCH ×2 (12:39→16:37)
--- NOTE | 2021-04-18 14:00 | NUR ---
RN NOTES COLLECTED UA/UC SPECIMENT AT THIS TIME FROM CATHETER PORT , CALLED LAB TO BEVELING AND EDGING MACHINE OPERATOR.
[2021-04-18] MEDS: MEROPENEM 500 MG in IV NS 0.9% 50 ML IV SCH ×2 (15:05→21:20)
[2021-04-18] MEDS: VANCOMYCIN HCL 0.75 GM in IV D5W 250 ML IV SCH (15:06)
[2021-04-18] MEDS: JEVITY 1.2 CAL 1,000 ML BOTTLE GT PRN (16:11)
--- NOTE | 2021-04-18 16:41 | NUR ---
RN NOTES PER PATIENT FAMILY REFUSED TO ADMINISTERED DEPRESSION MEDICATION, NOTOFIED Dr INGRAM, AND GRT ORDER TO D/C FROM EMAR. HARPREET TO ORDER RESTART IV BLADDER IRRIGATION, ORDERR TAKEN AND CARRIED OUT. ASSIST FAMILY FACETIME TO THE PATIENT.
[2021-04-18 18:47] LABS: BILIRUBIN,URINE NEGATIVE (NEGATIVE); COLOR,URINE DARK YELLOW (YELLOW); LEUKOCYTE ESTERASE ,URINE TRACE (NEGATIVE); NITRITE, URINE NEGATIVE (NEGATIVE); PH,URINE 5.5 (5.0-8.0); PROTEIN,URINE 30 mg/dl (NEGATIVE); UGLUCOSE NEGATIVE (NEGATIVE); UROBILINOGEN,URINE 0.2 EU/dL (0.2)
[2021-04-18 18:59] LABS: RBC,URINE 81-100 /HPF (0-2)
[2021-04-18 19:00] LABS: BACTERIA,URINE None seen /HPF (None Seen); SQUAMOUS EPITHELIAL CELL,UR Rare /HPF (None Seen); URINE AMORPHOUS PHOSPHATES Moderate /HPF (None Seen)
--- NOTE | 2021-04-18 19:35 | NUR ---
STUNNER ANIMAL NOTES RECEIVED PT FOR CONTINUITY OF CARE. PATIENT SEDATED ; IN NO S/SX OF ACUTE DISTRESS AT THIS TIME; CURRENTLY ON MECHANICAL VENT; SETTING PRESCRIBED, WITH 02 SAT >95% AT THIS TIME. RECEIVED PT WITH RUNNING DIPRIVAN DRIP @40MCG/KG/MIN MONITORED AND ADJUSTED PER PROTOCOL. WITH WITH NGT ON R NARE CONNECTED TO TUBE FEEDING OF JEVITY 1.2 RUNNING @20CC/HR; PT TOLERATES WELL. ALL IV ACCESS REMAINED INTACT AND FLUSHING WELL PLS REFER TO IV ACCESS SPREADSHEET FOR INFO. WITH LIRA CATH SECURED AND INTACT; ONGOING BLADDER IRRIGATION; NOTED YELLOWISH RED URINE OUTPUT ; WILL CONTINUE TO MONITOR. WILL ENSURE SAFETY MEASURES WITHIN THE SHIFT. PATIENT BED ALARM IS ON. HEAD OF BED ELEVATED. BED IS LOCKED, IN LOWEST POSITION AND SIDE RAILS UP. CALL LIGHT WITHIN REACH OF THE PATIENT. APPLICABLE ISOLATION PRECAUTIONS IN PLACE. WILL CONTINUE TO MONITOR AND REASSESS FOR ANY CHANGES AND WILL CARRY OUT ANY ONGOING AND ACTIVE MD ORDER.
--- NOTE | 2021-04-18 20:45 | NUR ---
RN NOTES RECEIVED CALL FROM PT'S DAUGHTER [phone]; PROVIDED GENERAL UPDATES. ADVISED THAT WILL PROVIDE CALL IF THERE'S ANY SIGNIFICANT CHANGES ABOUT PT'S CONDITION. ALSO ADVISED FAMILY IF THEY HAVE SPECIFIC QUESTIONS ABOUT TX PLAN, CALL IN THE AM TO GET IN TOUCH WITH MD. FAMILY ACKNOWLEDGED.
[2021-04-19] VITALS (44 sets, daily range): BP systolic 107–161; BP diastolic 59–87
[2021-04-19] MEDS: VANCOMYCIN HCL 0.75 GM in IV D5W 250 ML IV SCH ×2 (02:06→15:06)
[2021-04-19] MEDS: PROPOFOL 100 ML IV PRN ×5 (03:33→23:13)
[2021-04-19] MEDS: MEROPENEM 500 MG in IV NS 0.9% 50 ML IV SCH ×3 (04:30→20:41)
[2021-04-19 05:04] LABS: BASOPHILS # (AUTO) 0.1 K/uL (0.0-0.2); BASOPHILS % (AUTO) 0.4 % (0.0-2.0); EOSINOPHILS % (AUTO) 2.9 % (0.0-6.0); HEMATOCRIT 44 % (39-51); HEMOGLOBIN 14.1 g/dL (13.5-17.5); LYMPHOCYTES # (AUTO) 1.8 K/uL (0.8-4.8); LYMPHOCYTES % (AUTO) 13.5 % (20.0-44.0); MEAN CORPUSCULAR HGB CONC 32 g/dl (31.0-36.0); MEAN CORPUSCULAR VOLUME 87 fL (80-96); MONOCYTES # (AUTO) 1.3 K/uL (0.1-1.30); MONOCYTES % (AUTO) 9.7 % (2.0-12.0); NEUTROPHILS # (AUTO) 9.8 K/uL (1.8-8.9); NEUTROPHILS % (AUTO) 73.5 % (43.0-81.0); PLATELET COUNT (AUTO) 351 K/uL (150-450); RED BLOOD CELL COUNT(AUTO) 5.05 MIL/uL (4.5-6.0); WHITE BLOOD COUNT (AUTO) 13.3 K/uL (4.3-11.0)
[2021-04-19] MEDS: BLOOD SUGAR DIAGNOSTIC 1 EACH STRIP IN SCH ×4 (05:11→23:11)
[2021-04-19] MEDS: INSULIN REGULAR, HUMAN 100 UNIT/ML 3 ML VIAL SQ PRN ×3 (05:25→23:12)
[2021-04-19 05:26] LABS: ALANINE AMINOTRANSFERASE 10 U/L (12-78); ALBUMIN 2.5 g/dL (3.4-5.0); ALKALINE PHOSPHATASE 40 U/L (46-116); ASPARTATE AMINOTRANSFERASE 6 U/L (15-37); BILIRUBIN,TOTAL 0.8 mg/dL (0.2-1.0); CALCIUM, SERUM 8.9 mg/dL (8.5-10.1); CARBON DIOXIDE 27 mmol/L (21-32); CHLORIDE 101 mmol/L (98-107); CREATININE 1.7 mg/dL (0.6-1.3); GLUCOSE 167 mg/dL (74-106); MAGNESIUM 2.1 mg/dL (1.8-2.4); POTASSIUM 3.8 mmol/L (3.5-5.1); SODIUM SERUM 137 mmol/L (136-145); TOTAL PROTEIN, SERUM 6.5 g/dL (6.4-8.2); UREA NITROGEN, BLOOD 37 mg/dL (7-18)
--- NOTE | 2021-04-19 06:58 | NUR ---
RN CLOSING NOTE: PATIENT REMAINS IN ROOM IN NO SIGNS OF RESPIRATORY DISTRESS, PATIENT STILL ON MECH VENT; SETTINGS PRESCRIBED;TOLERATING WELL SATURATING @>95% SP02. SAFETY MEASURES IMPLEMENTED, BED IN LOWEST POSITION, LOCKED, SIDE RAILS UP, CALL LIGHT WITHIN REACH. ALL NEEDS AND ORDERS ADDRESSED DURING THE SHIFT. IV ACCESS MAINTAINED INTACT, SECURED AND FLUSHING WELL. ALL DUE MEDS GIVEN ORDERED & SCHEDULED ; PATIENT TOLERATED WELL. STILL WITH ONGOING DIPRIVAN DRIP @40MCG/KG/MIN MONITORED AND ADJUSTED PER PROTOCOL. LIRA CATH ON A BLADDER IRRIGATION STILL ONGOING AND NOTED TO PASS YELLOW RED TO REDDISH COLORED URINE OUTPUT THE WHOLE SHIFT; ROSELIA MEZA NOTIFIED (LAWRENCE,STUDIO OPERATION ENGINEER). WILL ENDORSE TO AM SHIFT TO FOLLOW THROUGH WITH MD (HGB AND HCT WNL FOR THIS AM LAB) PATIENT KEPT CLEAN AND COMFORTABLE WITHIN THE SHIFT. PATIENT ENDORSED TO INCOMING SHIFT RN WITH STABLE VITAL SIGN AND FOR CONTINUITY OF CARE.
--- NOTE | 2021-04-19 07:30 | NUR ---
RN OPENING NOTE PT RECEIVED IN BED WITH HOB SEMI FOWLERS. PT IS ON MECHANICAL VENT WITH PRESCRIBED SETTINGS TOLERATING WELL WITH NO SIGNS OF DISTRESS OR LABORED BREATHIG SAT 100%. PT IS SEDATED ON DIPRIVAN INFUSING @ 40 MCG/HR. GTUBE IS IN PLACE WITH POSITIVE PLACEMENT PER XRAY INFUSING JEVITY 1.2 @ 20 ML/HR WITH >20 ML RESIDUAL. LIRA CATHETER IS IN PLACE DRAINING URINE BY GRAVITY. IV ACCESS L AC 18G, R AC 20G, R SUBCLAVIAN 3XLUMEN. BED IS LOCKED IN LOWEST POSITION X3 GUARD RAILS UP, ALL HOSPITAL SAFETY MEASURES ARE IN PLACE. WILL CONTINUE TO MONITOR THIS SHIFT.
[2021-04-19] MEDS: PANTOPRAZOLE 40 MG TABLET.DR PO SCH (07:51)
[2021-04-19] MEDS ORDERED: [UNRECOGNIZED DRUG - REMARK] XX PRN (08:00)
[2021-04-19] MEDS: ASPIRIN EC 81 MG TABLET.DR PO SCH (08:55)
[2021-04-19] MEDS: PAROXETINE HCL 20 MG TABLET PO SCH (08:55)
[2021-04-19] MEDS: METOPROLOL TARTRATE 50 MG TABLET PO SCH ×2 (08:55→17:49)
[2021-04-19] MEDS: FENOFIBRATE NANOCRYS (145 MG) 145 MG TABLET PO SCH (08:55)
[2021-04-19] MEDS: ENOXAPARIN SODIUM 30 MG/0.3 ML DISP.SYRIN SQ SCH (09:00)
[2021-04-19] MEDS: CLOTRIMAZOLE 1% 15 GM TUBE TP SCH ×2 (09:11→17:50)
--- NOTE | 2021-04-19 11:00 | NUR ---
RN NOTE PER DR. CAREY, WILL COORDINATE WITH RT FOR SPONTANEOUS BREATHING TRIAL.
--- NOTE | 2021-04-19 14:30 | NUR ---
RN NOTE PT IS ON CPAP PRESSURE SUPPORT 12, FIO2 30% TOLERATING WELL AT THIS MOMENT SAT 98%O2 RR 26. WILL CONTINUE TO MONITOR.
--- NOTE | 2021-04-19 15:50 | NUR ---
RN NOTE PER MD, BREATHING TRIAL HAS STOPPED. PT HAS RESUMED PREVIOUS MECHANICAL VENT SETTINGS. WILL CONTINUE TO MONITOR THIS SHIFT.
--- NOTE | 2021-04-19 16:13 | NUR ---
PT PLACED BACK ON AC MODE POST ABG PER MD. ELEVATED CO2 , LOW PH.
--- NOTE | 2021-04-19 19:30 | NUR ---
FILER HELPER NOTES RECEIVED PT FOR CONTINUITY OF CARE. PATIENT SEDATED, IN NO S/SX OF ACUTE DISTRESS AT THIS TIME; CURRENTLY ON MECHANICAL VENT; SETTING PRESCRIBED, WITH 02 SAT >95% AT THIS TIME. RECEIVED PT WITH RUNNING DIPRIVAN DRIP @40MCG/KG/MIN MONITORED AND ADJUSTED PER PROTOCOL. WITH WITH NGT ON R NARE CONNECTED TO TUBE FEEDING OF JEVITY 1.2 RUNNING @20CC/HR; PT TOLERATES WELL. ALL IV ACCESS REMAINED INTACT AND FLUSHING WELL WITH LIRA CATH SECURED AND INTACT; ONGOING BLADDER IRRIGATION; NOTED CLEAR YELLOW URINE OUTPUT ; WILL CONTINUE TO MONITOR. WITH BILATERAL SOFT RESTRAINTS IN PLACED, MONITORED AND ASSESSED PER PROTOCOL. WILL ENSURE SAFETY MEASURES WITHIN THE SHIFT. PATIENT BED ALARM IS ON. HEAD OF BED ELEVATED. BED IS LOCKED, IN LOWEST POSITION AND SIDE RAILS UP. CALL LIGHT WITHIN REACH OF THE PATIENT. APPLICABLE ISOLATION PRECAUTIONS IN PLACE. WILL CONTINUE TO MONITOR AND REASSESS FOR ANY CHANGES AND WILL CARRY OUT ANY ONGOING AND ACTIVE MD ORDER.
--- NOTE | 2021-04-19 20:00 | NUR ---
RN CLOSING NOTE PT IN BED WITH HOB SEMI FOWLERS. PT IS ON MECHANICAL VENT WITH PRESCRIBED SETTINGS TOLERATING WELL WITH NO SIGNS OF DISTRESS OR LABORED BREATHIG SAT 100%. SPONTANEOUS BREATHING TRIAL STOPPED PER MD. PT RETURNED TO PREVIOUS VENT SETTINGS. PT IS SEDATED ON DIPRIVAN INFUSING @ 40 MCG/HR. GTUBE IS IN PLACE WITH POSITIVE PLACEMENT PER XRAY INFUSING JEVITY 1.2 @ 20 ML/HR WITH >20 ML RESIDUAL. LIRA CATHETER IS IN PLACE DRAINING URINE BY GRAVITY. IV ACCESS L AC 18G, R AC 20G, R SUBCLAVIAN 3XLUMEN. BED IS LOCKED IN LOWEST POSITION X3 GUARD RAILS UP, ALL HOSPITAL SAFETY MEASURES ARE IN PLACE. WILL ENDORSE TO REGIONAL RECRUITER NURSE FOR JODY.
[2021-04-20] VITALS (49 sets, daily range): BP systolic 103–185; BP diastolic 55–102
--- NOTE | 2021-04-20 | NUR ---
RN NOTES PATIENT REMAINED TO BE IN NO SIGNS OF ACUTE RESPIRATORY DISTRESS , VITAL SIGNS WNL AT THIS TIME. STILL WITH ONGOING BLADDER IRRIGATION; REDDISH URINE OUTPUT; HEMATURIA NOTED AT THIS TIME. GROUNDMAN/LINEMAN MADE AWARE. WILL NOTIFY MD IN THE MORNING. WILL CONTINUE TO MONITOR AND REASSESS FOR ANY CHANGES THROUGHOUT THE SHIFT.
[2021-04-20] MEDS: VANCOMYCIN HCL 0.75 GM in IV D5W 250 ML IV SCH ×2 (02:59→14:45)
[2021-04-20] MEDS: PROPOFOL 100 ML IV PRN ×5 (03:08→20:11)
[2021-04-20] MEDS: MEROPENEM 500 MG in IV NS 0.9% 50 ML IV SCH ×3 (04:22→20:18)
[2021-04-20] MEDS: BLOOD SUGAR DIAGNOSTIC 1 EACH STRIP IN SCH ×4 (05:06→23:20)
[2021-04-20] MEDS: INSULIN REGULAR, HUMAN 100 UNIT/ML 3 ML VIAL SQ PRN ×3 (05:07→23:20)
[2021-04-20 05:17] LABS: BASOPHILS % (AUTO) 0.4 % (0.0-2.0); HEMATOCRIT 42 % (39-51); HEMOGLOBIN 13.6 g/dL (13.5-17.5); LYMPHOCYTES # (AUTO) 1.6 K/uL (0.8-4.8); LYMPHOCYTES % (AUTO) 15.1 % (20.0-44.0); MEAN CORPUSCULAR HGB CONC 33 g/dl (31.0-36.0); MEAN CORPUSCULAR VOLUME 86 fL (80-96); MONOCYTES # (AUTO) 1.3 K/uL (0.1-1.30); MONOCYTES % (AUTO) 12.4 % (2.0-12.0); NEUTROPHILS # (AUTO) 7.5 K/uL (1.8-8.9); NEUTROPHILS % (AUTO) 69.1 % (43.0-81.0); PLATELET COUNT (AUTO) 380 K/uL (150-450); RED BLOOD CELL COUNT(AUTO) 4.84 MIL/uL (4.5-6.0); WHITE BLOOD COUNT (AUTO) 10.9 K/uL (4.3-11.0)
[2021-04-20 05:31] LABS: CARBON DIOXIDE 30 mmol/L (21-32); CHLORIDE 101 mmol/L (98-107); CREATININE 1.7 mg/dL (0.6-1.3); GLUCOSE 182 mg/dL (74-106); POTASSIUM 3.8 mmol/L (3.5-5.1); SODIUM SERUM 135 mmol/L (136-145); UREA NITROGEN, BLOOD 41 mg/dL (7-18)
[2021-04-20 05:38] LABS: ALANINE AMINOTRANSFERASE 11 U/L (12-78); ALBUMIN 2.3 g/dL (3.4-5.0); ALKALINE PHOSPHATASE 42 U/L (46-116); ASPARTATE AMINOTRANSFERASE 10 U/L (15-37); BILIRUBIN,TOTAL 0.6 mg/dL (0.2-1.0); TOTAL PROTEIN, SERUM 6.1 g/dL (6.4-8.2)
--- NOTE | 2021-04-20 07:01 | NUR ---
RN CLOSING NOTE: PATIENT REMAINS IN ROOM IN NO SIGNS OF RESPIRATORY DISTRESS, PATIENT STILL ON MECH VENT; SETTINGS PRESCRIBED;TOLERATING WELL SATURATING 98% SP02 AT THIS TIME. SAFETY MEASURES IMPLEMENTED, BED IN LOWEST POSITION, LOCKED, SIDE RAILS UP, CALL LIGHT WITHIN REACH. ALL NEEDS AND ORDERS ADDRESSED DURING THE SHIFT. IV ACCESS MAINTAINED INTACT, SECURED AND FLUSHING WELL. ALL DUE MEDS GIVEN ORDERED & SCHEDULED ; PATIENT TOLERATED WELL. STILL WITH ONGOING DIPRIVAN DRIP @40MCG/KG/MIN MONITORED AND ADJUSTED PER PROTOCOL. LIRA CATH ON A BLADDER IRRIGATION STILL ONGOING STILL WITH HEMATURIA. WILL ENDORSE TO AM SHIFT TO FOLLOW THROUGH WITH MD. PATIENT KEPT CLEAN AND COMFORTABLE WITHIN THE SHIFT. PATIENT ENDORSED TO INCOMING SHIFT RN WITH STABLE VITAL SIGN AND FOR CONTINUITY OF CARE.
--- NOTE | 2021-04-20 08:00 | NUR ---
RN NOTES RECEIVED PATIENT ON ETT/VENT SETTINGS FIO2-30, PEEP-5, PATIENT SEDATED DIPRIVAN 40MCG/KG/HR. NO ACUTE RESPIRATORY DISTRESS, VSS, BEDSIDE MONITOR SHOWS - 68 SR,TOLERATING WELL SATURATING 98% SP02 AT THIS TIME. IV ACCESS MAINTAINED INTACT, SECURED AND FLUSHING WELL. ALL DUE MEDS GIVEN ORDERED & SCHEDULED . LIRA CATH ON A BLADDER IRRIGATION STILL ONGOING STILL WITH HEMATURIA. RUNNING JEVITY 20ML/HR, CHECKED RESIDUAL IS 10CC. KEEP HOB ELEVATED FOR ASPIRATION PRECAUTION. ASSIST TURN A D REPOSTION Q 2 HR, SUCTION, MOUTH CARE DONE, PATIENT HAS MEDIUM ORAL SECRETION. WILL FOLLOW UP.
[2021-04-20] MEDS: PAROXETINE HCL 20 MG TABLET PO SCH (08:16)
[2021-04-20] MEDS: ENOXAPARIN SODIUM 30 MG/0.3 ML DISP.SYRIN SQ SCH (08:17)
[2021-04-20] MEDS: ASPIRIN EC 81 MG TABLET.DR PO SCH (08:17)
[2021-04-20] MEDS: PANTOPRAZOLE 40 MG TABLET.DR PO SCH (08:39)
[2021-04-20] MEDS: FENOFIBRATE NANOCRYS (145 MG) 145 MG TABLET PO SCH (08:39)
[2021-04-20] MEDS: CLOTRIMAZOLE 1% 15 GM TUBE TP SCH ×2 (08:40→17:21)
[2021-04-20] MEDS: METOPROLOL TARTRATE 50 MG TABLET PO SCH ×2 (08:40→17:25)
--- NOTE | 2021-04-20 10:00 | NUR ---
rn notes sen patient via dr June stop sedation at this time for weaning from went, and cpap. RT notified
--- NOTE | 2021-04-20 11:20 | NUR ---
rn notes patient fail weaning from vent per ABG result, restart sedation, titrated up per protocol, bs-127mmg/dl, patient getting ogt @20ml/hr , will follow up.
[2021-04-20] MEDS: JEVITY 1.2 CAL 1,000 ML BOTTLE GT PRN (14:42)
--- NOTE | 2021-04-20 18:30 | NUR ---
RN NOTES PATIENT PM CARE DONE, SUCTION, MOUTH CARE, BS-154 MG/DL COVERAGE GIVEN, DUE MEDICATION ADMINISTERED, PATIENT HAS BLADDER IRRIGATION, DRAINING WELL, ASSIST TURN AND REPOSTION Q 2 HR, PATIENT SEDATED DIPRIVAN 40MCG/KG/HR INTACT, ON RIGHT SUBCLAVIAN AREA INTACT. ENDORSED ONCOMING NURSE FOLLOW PLAN OF CARE.
--- NOTE | 2021-04-20 19:05 | NUR ---
RECEIVED PT STILL ORALLY INTUBATED SEDATED, IN NO S/SX OF ACUTE DISTRESS AT THIS TIME; CURRENTLY ON MECHANICAL VENT; SETTING PER MD FIO2 30% WITH 02 SAT >95% AT THIS TIME. WITH ONGOING DIPRIVAN DRIP @40MCG/KG/MIN TO BE ADJUSTED PER PROTOCOL. WITH WITH NGT ON R NARE CONNECTED TO TUBE FEEDING OF JEVITY 1.2 RUNNING @20CC/HR; PT TOLERATES WELL O RESIDUAL. R SUBCLAVIAN 3L CATHETER INTACT AND FLUSHING WELL WITH LIRA CATH SECURED AND INTACT; ONGOING BLADDER IRRIGATION; NOTED PINK TINGED URINE OUTPUT NOTED ; WILL CONTINUE TO MONITOR. WITH BILATERAL SOFT RESTRAINTS IN PLACED, MONITORED AND ASSESSED PER PROTOCOL. . PATIENT BED ALARM IS ON. HEAD OF BED ELEVATED. BED IS LOCKED, IN LOWEST POSITION AND SIDE RAILS UP.. WILL CONTINUE TO MONITOR
--- NOTE | 2021-04-20 22:16 | NUR ---
SEND MSG TO DR LONG AND INFORMED HIM THAT PT SON MR ODONNELL WANTS TO TALK TO HIM ABOUT THE PT CONDITION, GIVE PT SON BLAS AND DAUGHTER KATHERINE XAVIER TO DR LONG
[2021-04-21] VITALS (30 sets, daily range): BP systolic 116–178; BP diastolic 64–99
[2021-04-21] MEDS: PROPOFOL 100 ML IV PRN ×6 (00:43→23:36)
[2021-04-21] MEDS: VANCOMYCIN HCL 0.75 GM in IV D5W 250 ML IV SCH ×3 (02:27→15:29)
[2021-04-21] MEDS: LABETALOL HCL IV 100MG VIAL IV PRN ×2 (04:07→10:31)
[2021-04-21 04:57] LABS: BASOPHILS # (AUTO) 0.1 K/uL (0.0-0.2); BASOPHILS % (AUTO) 0.4 % (0.0-2.0); EOSINOPHILS % (AUTO) 2.6 % (0.0-6.0); HEMATOCRIT 45 % (39-51); HEMOGLOBIN 14.5 g/dL (13.5-17.5); LYMPHOCYTES # (AUTO) 2.6 K/uL (0.8-4.8); LYMPHOCYTES % (AUTO) 21.9 % (20.0-44.0); MEAN CORPUSCULAR HGB CONC 32 g/dl (31.0-36.0); MEAN CORPUSCULAR VOLUME 87 fL (80-96); MONOCYTES # (AUTO) 1.4 K/uL (0.1-1.30); NEUTROPHILS # (AUTO) 7.4 K/uL (1.8-8.9); NEUTROPHILS % (AUTO) 63.1 % (43.0-81.0); PLATELET COUNT (AUTO) 381 K/uL (150-450); RED BLOOD CELL COUNT(AUTO) 5.16 MIL/uL (4.5-6.0); WHITE BLOOD COUNT (AUTO) 11.7 K/uL (4.3-11.0)
[2021-04-21] MEDS: MEROPENEM 500 MG in IV NS 0.9% 50 ML IV SCH ×3 (05:08→20:04)
[2021-04-21 05:17] LABS: CALCIUM, SERUM 9.4 mg/dL (8.5-10.1); CARBON DIOXIDE 33 mmol/L (21-32); CHLORIDE 100 mmol/L (98-107); CREATININE 1.9 mg/dL (0.6-1.3); GLUCOSE 155 mg/dL (74-106); SODIUM SERUM 136 mmol/L (136-145); UREA NITROGEN, BLOOD 42 mg/dL (7-18)
[2021-04-21 05:23] LABS: ALANINE AMINOTRANSFERASE 10 U/L (12-78); ALBUMIN 2.3 g/dL (3.4-5.0); ALKALINE PHOSPHATASE 41 U/L (46-116); ASPARTATE AMINOTRANSFERASE 11 U/L (15-37); BILIRUBIN,TOTAL 0.6 mg/dL (0.2-1.0); TOTAL PROTEIN, SERUM 6.4 g/dL (6.4-8.2)
[2021-04-21] MEDS: BLOOD SUGAR DIAGNOSTIC 1 EACH STRIP IN SCH ×4 (05:39→23:59)
[2021-04-21] MEDS: INSULIN REGULAR, HUMAN 100 UNIT/ML 3 ML VIAL SQ PRN ×2 (05:41→13:05)
--- NOTE | 2021-04-21 06:54 | NUR ---
PT ON BED STILL ORALLY INTUBATED, VENT SETTING ORDER FIO2 30% SPO2 98% SINUS RHYTHM ON MONITOR STILL ON DIPRIVAN @40MCG/KG/MIN, LIRA CATHETER DRAINING MINESH COLOR URINE CONTINUOS BLADDER IRRIGATION STILL ONGOING BED ON LOWEST POSITION AND LOCKED SIDE RAILS UP X2 CALL LIGHT WITHIN REACH WILL CONT TO MONITOR
[2021-04-21] MEDS: ENOXAPARIN SODIUM 30 MG/0.3 ML DISP.SYRIN SQ SCH (08:36)
[2021-04-21] MEDS: METOPROLOL TARTRATE 50 MG TABLET PO SCH ×2 (08:49→18:11)
[2021-04-21] MEDS: FENOFIBRATE NANOCRYS (145 MG) 145 MG TABLET PO SCH (08:49)
[2021-04-21] MEDS: ASPIRIN EC 81 MG TABLET.DR PO SCH (08:49)
[2021-04-21] MEDS: PAROXETINE HCL 20 MG TABLET PO SCH (08:50)
[2021-04-21] MEDS: AMLODIPINE BESYLATE 5 MG TABLET PO SCH ×2 (08:53→18:11)
[2021-04-21] MEDS: CLOTRIMAZOLE 1% 15 GM TUBE TP SCH ×2 (09:55→18:11)
[2021-04-21] MEDS: PANTOPRAZOLE 40 MG/PACK PACK GT SCH (09:55)
[2021-04-21] MEDS: IV NS 0.9% 250 ML IV PRN (12:35)
[2021-04-21 15:04] LABS: ABG BASE EXCESS 2.6 mmol/L; ABG OXYGEN SATURATION 96.5 % (92.0-98.5); ABG PCO2 54.4 mmHg (35.0-45.0); ABG PH 7.353 (7.350-7.450); ABG PO2 90.5 mmHg (75.0-100.0); AaDO2 132.1 mmHg; COHb 0.9 % (0.5-1.5); MetHb 0.2 % (0.0-1.5); O2Hb 95.4 % (94.0-97.0); PEEP,BG 5 cm H2O; SITE, ABG Right Radial; VENT MODE, BG CPAP PSV 12
--- NOTE | 2021-04-21 19:22 | NUR ---
RN NOTE PT SEDATED ON 40 MCG DIPROVAN. PT PLACED ON SEDATION VACATION AT 10AM. PT WAS ABLE TO SQUEEZE BILATERALLY WITH FORCE. PT INTUBATED. CONTINUOUS IRRIGATION WITH TOTAL URINE OUTPUT OF 2.5L. TUBE FEEDING PLACED AT 20CC. NO RESIDUAL
--- NOTE | 2021-04-21 19:30 | NUR ---
RN NOTE PT RECEIVED IN BED. PT CURRENTLY SEDATED TOLERATING VENT SETTINGS WELL WITH OXYGEN SATURATION >98%. ON PAPER PROCESSING MACHINE HELPER SHOWING NSR. LIRA CATH NOTED DRAINING YELLOW COLORED URINE. BILATERAL SOFT WRIST RESTRAINTS NOTED. JEVITY 1.2 RUNNING AT 20 CC/HR. PT TOLERATING WELL WITH NO RESIDUAL NOTED. IV ACCESS NOTED ON RIGHT SUBCLAVIAN AND RIGHT AC #20. LINES FLUSHED, PATENT, AND INTACT WITH NO SIGNS OF INFILTRATION. PROPOFOL RUNNING AT 40 MCG/KG/MIN. ALL SAFETY MEASURES IMPLEMENTED. WILL CONTINUE TO MONITOR AND ASSESS FOR ANY CHANGES DURING SHIFT.
[2021-04-22] VITALS (31 sets, daily range): BP systolic 84–145; BP diastolic 55–107
[2021-04-22] MEDS: INSULIN REGULAR, HUMAN 100 UNIT/ML 3 ML VIAL SQ PRN ×5 (00:01→23:19)
--- NOTE | 2021-04-22 00:04 | NUR ---
RN NOTE BS 139. WILL ADMINISTER INSULIN PER SLIDING SCALE.
[2021-04-22 00:53] LABS: ABG PCO2 55.1 mmHg (35.0-45.0); ABG PH 7.354 (7.350-7.450); ABG PO2 79.8 mmHg (75.0-100.0); AaDO2 69.4 mmHg; COHb 1.1 % (0.5-1.5); MetHb 0.2 % (0.0-1.5); O2Hb 93.8 % (94.0-97.0); SITE, ABG Right Radial
[2021-04-22] MEDS: PROPOFOL 100 ML IV PRN ×3 (03:52→16:28)
[2021-04-22 05:08] LABS: CALCIUM, SERUM 9.8 mg/dL (8.5-10.1); CARBON DIOXIDE 30 mmol/L (21-32); CHLORIDE 102 mmol/L (98-107); CREATININE 1.5 mg/dL (0.6-1.3); GLUCOSE 128 mg/dL (74-106); SODIUM SERUM 140 mmol/L (136-145); UREA NITROGEN, BLOOD 38 mg/dL (7-18)
[2021-04-22] MEDS: BLOOD SUGAR DIAGNOSTIC 1 EACH STRIP IN SCH ×4 (05:20→23:15)
[2021-04-22] MEDS: MEROPENEM 500 MG in IV NS 0.9% 50 ML IV SCH (05:25)
--- NOTE | 2021-04-22 06:46 | NUR ---
RN NOTE NO CHANGES IN PT CONDITION DURING SHIFT. PT CURRENTLY SEDATED TOLERATING VENT SETTINGS WELL WITH OXYGEN SATURATION >98%. JEVITY 1.2 RUNNING AT 20 CC/HR. PT TOLERATING WELL WITH NO RESIDUAL NOTED. IV ACCESS NOTED ON RIGHT SUBCLAVIAN AND RIGHT AC #20. LINES FLUSHED, PATENT, AND INTACT WITH NO SIGNS OF INFILTRATION. PROPOFOL NOW RUNNING AT 45 MCG/KG/MIN. ALL DUE MEDS GIVEN ORDERED. PT KEPT CLEAN AND COMFORTABLE. ALL SAFETY MEASURES IMPLEMENTED. WILL ENDORSE TO MORNING SHIFT RN FOR JODY.
--- NOTE | 2021-04-22 07:30 | NUR ---
PT RECEIVED SEDATED AND TOLERATING VENT WELL, O2 SAT 97%. NSR. LIRA CATH DRAINING DARK URIN, PT ON BILATERAL SOFT WRIST RESTRAINTS. JEVITY 1.2 RUNNING AT 20 CC/HR. IV ACCESS ON RIGHT SUBCLAVIAN RUNNING PROPOFOL 45 MCG/KG/MIN. AND RIGHT AC #20 FLUSHING , PATENT, AND INTACT WITH NO SIGNS OF INFILTRATION.. ALL SAFETY MEASURES OBSERVED. WILL JODY
[2021-04-22] MEDS ORDERED: VANCOMYCIN 1 GM in IV D5W 250 ML IV SCH (08:00)
[2021-04-22] MEDS: PANTOPRAZOLE 40 MG/PACK PACK GT SCH (08:53)
[2021-04-22] MEDS: FENOFIBRATE NANOCRYS (145 MG) 145 MG TABLET PO SCH (08:53)
[2021-04-22] MEDS: ASPIRIN EC 81 MG TABLET.DR PO SCH (08:53)
[2021-04-22] MEDS: AMLODIPINE BESYLATE 5 MG TABLET PO SCH ×2 (08:53→17:00)
--- NOTE | 2021-04-22 08:53 | NUR ---
PER RNTOSHA AND RT TG, SOFTWARE CONTROLS ENGINEER PUT THORACENTESIS ON HOLD. LEFT NOTE FOR US-TECH TO FOLLOW UP ON WEDNESDAY.
[2021-04-22] MEDS: PAROXETINE HCL 20 MG TABLET PO SCH (08:54)
[2021-04-22] MEDS: METOPROLOL TARTRATE 50 MG TABLET PO SCH ×2 (08:54→17:00)
[2021-04-22] MEDS: CLOTRIMAZOLE 1% 15 GM TUBE TP SCH ×2 (08:54→17:50)
[2021-04-22] MEDS: ENOXAPARIN SODIUM 30 MG/0.3 ML DISP.SYRIN SQ SCH (09:00)
--- NOTE | 2021-04-22 09:30 | NUR ---
RN NOTE HOLD DIPRIVAN DUE TO WEANING TRAIL AT 0930 PER RT TG ORDER.
--- NOTE | 2021-04-22 09:36 | NUR ---
rn note HOLD LOVENOX DUE TO THORACENTESIS PROCEDURE
--- NOTE | 2021-04-22 10:30 | NUR ---
RN NOTE RESUME DIPRIVAN 5MCG/KG/MIN AT 1030 PER RT TG DUE TO PT FAIL THE WEANING TRAIL
[2021-04-22] MEDS ORDERED: EPINEPHRINE (1:10,000) SYRINGE 1 MG/10 ML DISP.SYRIN IVP ONE (11:48)
--- NOTE | 2021-04-22 11:50 | NUR ---
RN NOTE PT HAD THORACENTESIS PROCEDURE AND DURING PROCEDURE PT CODED, CPR INITIATED RIGHT AWAY. EPINEPHRIN GIVEN, ROSC ACHIEVED. HOB ELEVATED, CONTINUE TO MONITOR AND WILL REPORT ANY CHANGES.
--- NOTE | 2021-04-22 11:54 | NUR ---
RT CODE YOKO CALLED ON PATIENT AND CPR INITIATED IMMEDIATELY. FIO2 INCREASED TO 100%. ROSC ACHIEVED AND PATIENT REMAINS ON VENT. AMBU BAG AT HOB Addendum: 04/22/21 at 1231 by TG AGUILA RT Amended: Links added.
--- NOTE | 2021-04-22 12:54 | NUR ---
Pt. is Unstable per nurse Virginia>
[2021-04-22] MEDS ORDERED: NOREPINEPHRINE 8 MG in IV NS 0.9% 242 ML IV PRN (13:00)
[2021-04-22] MEDS: JEVITY 1.2 CAL 1,000 ML BOTTLE GT PRN (18:12)
--- NOTE | 2021-04-22 18:43 | NUR ---
RN NOTE PT REMAIN SEDATED AND TOLERATING VENT WELL, O2 SAT 97%. NSR. LIRA CATH DRAINING DARK URIN, PT ON BILATERAL SOFT WRIST RESTRAINTS. JEVITY 1.2 RUNNING AT 20 CC/HR. HOLD BP MED AT 1700 DUE TO LOW BP98/57, IV ACCESS ON RIGHT SUBCLAVIAN RUNNING [id number] MCG/KG/MIN. PT HAD A BIG BM, GIVEN BED BATH, HIS LINEN CHANGED, APPLY ZGARD ON SKIN PER ORDER, ALL SAFETY MEASURES OBSERVED. WILL ENDORSED TO NOC SHIFT JODY
--- NOTE | 2021-04-22 19:29 | NUR ---
RN NOTE RECEIVED PATIENT IN BED, SEDATED. ET TUBE PRESENT. VENT SETTINGS OF 18, TV 500, FIO2 60, PEEP 5.0. ON TELE MONITORING, SINUS RHYTHM AT THIS TIME AT 73 BPM. SKIN COOL AND DRY. NOTED WITH RIGHT UPPER SUBCLAVIAN IV ACCESS, RUNNING PROPOFOL AT 10 MCG/MIN. NOTED WITH LIRA CATHETER. NO BLEEDING NOTED. NOTED WITH NGT ON RIGHT NARE, RUNNING JEVITY 1.2 AT 20 ML/HR. TOLERATING WELL. HOB ELEVATED SEMI-ARELLANO. BED LOW, IN LOCKED POSITION. CALL LIGHT WITHIN REACH.
[2021-04-23] VITALS (34 sets, daily range): BP systolic 99–135; BP diastolic 58–80
[2021-04-23] MEDS: PROPOFOL 100 ML IV PRN ×2 (03:00→16:18)
[2021-04-23 04:40] LABS: BASOPHILS # (AUTO) 0.1 K/uL (0.0-0.2); BASOPHILS % (AUTO) 0.3 % (0.0-2.0); EOSINOPHILS % (AUTO) 0.1 % (0.0-6.0); HEMATOCRIT 42 % (39-51); HEMOGLOBIN 13.5 g/dL (13.5-17.5); LYMPHOCYTES # (AUTO) 1.7 K/uL (0.8-4.8); LYMPHOCYTES % (AUTO) 10.5 % (20.0-44.0); MEAN CORPUSCULAR HGB CONC 32 g/dl (31.0-36.0); MEAN CORPUSCULAR VOLUME 87 fL (80-96); MONOCYTES # (AUTO) 1.7 K/uL (0.1-1.30); MONOCYTES % (AUTO) 10.1 % (2.0-12.0); NEUTROPHILS # (AUTO) 12.9 K/uL (1.8-8.9); PLATELET COUNT (AUTO) 511 K/uL (150-450); WHITE BLOOD COUNT (AUTO) 16.3 K/uL (4.3-11.0)
[2021-04-23 05:09] LABS: CALCIUM, SERUM 9.4 mg/dL (8.5-10.1); CARBON DIOXIDE 30 mmol/L (21-32); CHLORIDE 105 mmol/L (98-107); CREATININE 2.1 mg/dL (0.6-1.3); GLUCOSE 112 mg/dL (74-106); MAGNESIUM 2.6 mg/dL (1.8-2.4); PHOSPHORUS 5.6 mg/dL (2.5-4.9); POTASSIUM 4.2 mmol/L (3.5-5.1); SODIUM SERUM 143 mmol/L (136-145); UREA NITROGEN, BLOOD 53 mg/dL (7-18)
[2021-04-23] MEDS: BLOOD SUGAR DIAGNOSTIC 1 EACH STRIP IN SCH ×3 (05:31→17:26)
--- NOTE | 2021-04-23 06:20 | NUR ---
RN NOTE PAGED , ZABRINA. EXPLAINED TO MD, PATIENT HAD VERY MINIMAL URINE OUTPUT FROM DAY SHIFT AND PRODUCTION LINE TECHNICIAN. INDWELLING LIRA CATHETER PRESENT. OBTAINED 415 ML FROM BLADDER SCANNER. PER MD, START BOLUS 1L NS. NEW ORDER NOTED AND CARRIED OUT. WILL ENDORSE TO NEXT SHIFT.
[2021-04-23] MEDS ORDERED: IV NS 0.9% 1,000 ML IV ONE (06:30)
--- NOTE | 2021-04-23 07:30 | NUR ---
FARE ENFORCEMENT OFFICER OPENING NOTES Patient is sedated on diprivan 10 mcg. Patient is on mechanical vent setting of ac 18, tv 500, fi02 of 40 % and peep of 5. Patient is on feeding tube at 20 cc/hour. Queen cath intact and hanging to gravity. HOB kept elevated. Will continue to monitor. Bed is in lowest and locked position.
[2021-04-23] MEDS: AMLODIPINE BESYLATE 5 MG TABLET PO SCH ×2 (09:00→16:02)
[2021-04-23] MEDS: METOPROLOL TARTRATE 50 MG TABLET PO SCH ×2 (09:00→16:02)
[2021-04-23] MEDS: PAROXETINE HCL 20 MG TABLET PO SCH (09:00)
[2021-04-23] MEDS: FENOFIBRATE NANOCRYS (145 MG) 145 MG TABLET PO SCH (10:32)
[2021-04-23] MEDS: ENOXAPARIN SODIUM 30 MG/0.3 ML DISP.SYRIN SQ SCH (10:33)
[2021-04-23] MEDS: PANTOPRAZOLE 40 MG/PACK PACK GT SCH (10:45)
[2021-04-23] MEDS: ASPIRIN EC 81 MG TABLET.DR PO SCH (10:45)
[2021-04-23] MEDS: CLOTRIMAZOLE 1% 15 GM TUBE TP SCH ×2 (10:46→16:59)
--- NOTE | 2021-04-23 13:00 | NUR ---
Per peleg to d/c CT of chest with contrast order.
[2021-04-23] MEDS: INSULIN REGULAR, HUMAN 100 UNIT/ML 3 ML VIAL SQ PRN ×2 (13:20→16:59)
--- NOTE | 2021-04-23 13:22 | NUR ---
Patient noted with labored breathing. Propofol restarted and titrated to 10 mcg. Patient noted with SBP trending down after dirpivan restarted. Informed MD Camejo. Per to start FERNANDO drip. Orders carried out. Awaiting fernando from pharmacy Addendum: 04/23/21 at 1324 by CHAMP NEWBY RN Wrong chart
[2021-04-23] MEDS: FLUCONAZOLE (100 MG) 100 MG TABLET PO SCH (14:07)
[2021-04-23] MEDS: JEVITY 1.2 CAL 1,000 ML BOTTLE GT PRN (16:03)
--- NOTE | 2021-04-23 19:40 | NUR ---
RN NOTE CALLED RT TO INFORM THEM OF RESP CULTURE ORDER
--- NOTE | 2021-04-23 20:05 | NUR ---
RN NOTE RT ATTEMPTED TO COLLECT RESP CULTURE, PATIENT IS DRY, RT WILL TRY AGAIN LATER
--- NOTE | 2021-04-23 20:35 | NUR ---
RN OPENING NOTE RECEIVED PATIENT IN BED. SEDATED ON PROPOFOL@10. ON MECHANICAL VENT AC 18, TV 500 FIO2 40%, PEEP5. RESPIRATIONS ARE EVEN AND UNLABORED. NO S/S PAIN NOTED. TELE MONITOR READS SINUS RHYTHM HR 85. IV ACCESS IN RIGHT SUBCLAVIAN TLC RUNNING PROPOFOL. NGTUBE RUNNING JEVITY @20ML/HR. LIRA CATHETER DRAINING TO GRAVITY. BED IS LOW AND LOCKED, HOB ELEVATED IN SEMIFOWLERS, SIDE RAILS UP X2. ALARMS ON AND SAFEY PRECAUTIONS IN PLACE.
[2021-04-24] VITALS (31 sets, daily range): BP systolic 113–159; BP diastolic 59–91
[2021-04-24] MEDS: BLOOD SUGAR DIAGNOSTIC 1 EACH STRIP IN SCH ×4 (00:16→17:36)
[2021-04-24] MEDS: INSULIN REGULAR, HUMAN 100 UNIT/ML 3 ML VIAL SQ PRN ×2 (00:29→17:52)
--- NOTE | 2021-04-24 04:02 | NUR ---
SPUTUM SAMPLE COLLECTED, RN NOTIFIED.
[2021-04-24 04:33] LABS: BASOPHILS # (AUTO) 0.1 K/uL (0.0-0.2); BASOPHILS % (AUTO) 0.5 % (0.0-2.0); EOSINOPHILS % (AUTO) 0.9 % (0.0-6.0); HEMATOCRIT 41 % (39-51); LYMPHOCYTES % (AUTO) 14.3 % (20.0-44.0); MEAN CORPUSCULAR HGB CONC 32 g/dl (31.0-36.0); MEAN CORPUSCULAR VOLUME 88 fL (80-96); MONOCYTES # (AUTO) 1.4 K/uL (0.1-1.30); MONOCYTES % (AUTO) 9.7 % (2.0-12.0); NEUTROPHILS # (AUTO) 10.5 K/uL (1.8-8.9); NEUTROPHILS % (AUTO) 74.6 % (43.0-81.0); PLATELET COUNT (AUTO) 436 K/uL (150-450); RED BLOOD CELL COUNT(AUTO) 4.62 MIL/uL (4.5-6.0)
[2021-04-24] MEDS: PROPOFOL 100 ML IV PRN (04:36)
[2021-04-24 04:51] LABS: CALCIUM, SERUM 9.2 mg/dL (8.5-10.1); CARBON DIOXIDE 32 mmol/L (21-32); CHLORIDE 109 mmol/L (98-107); CREATININE 1.8 mg/dL (0.6-1.3); GLUCOSE 137 mg/dL (74-106); MAGNESIUM 2.5 mg/dL (1.8-2.4); PHOSPHORUS 4.5 mg/dL (2.5-4.9); POTASSIUM 4.1 mmol/L (3.5-5.1); SODIUM SERUM 145 mmol/L (136-145); UREA NITROGEN, BLOOD 58 mg/dL (7-18)
--- NOTE | 2021-04-24 07:31 | NUR ---
RN OPENING NOTE RESTING IN BED. SEDATED ON PROPOFOL@15. ON MECHANICAL VENT NO CHANGES IN SETTINGS. SINUS RHYTHM . RIGHT SUBCLAVIAN RUNNING PROPOFOL. NGTUBE RUNNING JEVITY @20ML/HR. LIRA OUTPUT 880CC YELLOW WITH SEDIMENTS. BED REMAINS LOW AND LOCKED, HOB ELEVATED IN SEMI FOWLERS, SIDE RAILS UP X2. ALARMS ON AND SAFETY PRECAUTIONS IN PLACE. WILL ENDORSE TO ONCOMING SHIFT.
--- NOTE | 2021-04-24 07:45 | NUR ---
ICU/RN PT IS INTUBATED ON THE VENT AC MODE,FIO2-40%,PEEP-5.SAT 02-100%.V/S STABLE,T-100.3, NO PAIN REPORTED AT THIS TIME.SEDATED WITH DIPRIVAN.RIGHT SUBCLAVIAN TLC.F/C DRAINING WITH MINESH CLOUDY URINE.SUCTION PROVIDED .REPOSITION FOR COMFORT.
[2021-04-24] MEDS: ASPIRIN EC 81 MG TABLET.DR PO SCH (08:33)
[2021-04-24] MEDS: PAROXETINE HCL 20 MG TABLET PO SCH (08:33)
[2021-04-24] MEDS: PANTOPRAZOLE 40 MG/PACK PACK GT SCH (08:33)
[2021-04-24] MEDS: FENOFIBRATE NANOCRYS (145 MG) 145 MG TABLET PO SCH (08:33)
[2021-04-24] MEDS: METOPROLOL TARTRATE 50 MG TABLET PO SCH ×2 (08:34→17:35)
[2021-04-24] MEDS: FLUCONAZOLE (100 MG) 100 MG TABLET PO SCH (08:34)
[2021-04-24] MEDS: AMLODIPINE BESYLATE 5 MG TABLET PO SCH ×2 (08:34→17:35)
[2021-04-24] MEDS: ENOXAPARIN SODIUM 30 MG/0.3 ML DISP.SYRIN SQ SCH (08:35)
[2021-04-24] MEDS: CLOTRIMAZOLE 1% 15 GM TUBE TP SCH ×2 (08:36→17:36)
--- NOTE | 2021-04-24 08:40 | NUR ---
ICU/RN ARAM STOP.SEDATION VACATION PROVIDED.WEANING TRIAL.PT IS STILL SLEEPING.CONTINUE MONITORING.
[2021-04-24] MEDS ORDERED: ENOXAPARIN SODIUM 30 MG/0.3 ML DISP.SYRIN SQ SCH (09:00)
[2021-04-24] MEDS: JEVITY 1.2 CAL 1,000 ML BOTTLE GT PRN (14:37)
--- NOTE | 2021-04-24 18:05 | NUR ---
icu/rn pm care provided.due meds are given as ordered.v.s stable afebrile. no pain reported at this time.pt is off Diprivan .open eyes,not follows command.continue monitoring.bs-175.
--- NOTE | 2021-04-24 20:17 | NUR ---
RECEIVED PT INTUBATED 7.5 ETT AT 26CM. NO RESP DISTRESS NOTED. PT TOLERATING VENT SETTINGS. SX'D SMALL AMT OF THIN WHITE SECRETIONS. VENT ALARMS SET AND AUDIBLE. CONTINUE TO MONITOR. Addendum: 04/24/21 at 2018 by GEOVANNI DAVIS RT Amended: Links added.
[2021-04-25] VITALS (24 sets, daily range): BP systolic 125–162; BP diastolic 61–86
[2021-04-25] MEDS: INSULIN REGULAR, HUMAN 100 UNIT/ML 3 ML VIAL SQ PRN ×5 (01:12→23:10)
--- NOTE | 2021-04-25 03:47 | NUR ---
RN notes Patient in bed resting comfortably with no distress noted. Vent setting well tolerated. Noted with elevated temperature 100.9 at 20:00, 100.4 at 00:00. Cooling measures provided. Tylenol given, with help. Temperature went down to 98.6. No physical manifestation of pain or discomfort. Off sedation, and vent setting will be changed to SIMV in AM. Alert but drowsy, non verbal as of this time. Opens eyes with eye contact. kept clean and dry. Will continue to monitor and will endorse to next shift for [id number] of care.
[2021-04-25 04:37] LABS: BASOPHILS # (AUTO) 0.1 K/uL (0.0-0.2); BASOPHILS % (AUTO) 0.7 % (0.0-2.0); EOSINOPHILS % (AUTO) 0.8 % (0.0-6.0); HEMATOCRIT 39 % (39-51); HEMOGLOBIN 12.5 g/dL (13.5-17.5); LYMPHOCYTES # (AUTO) 1.8 K/uL (0.8-4.8); MEAN CORPUSCULAR HGB CONC 32 g/dl (31.0-36.0); MEAN CORPUSCULAR VOLUME 88 fL (80-96); MONOCYTES # (AUTO) 1.5 K/uL (0.1-1.30); MONOCYTES % (AUTO) 9.1 % (2.0-12.0); NEUTROPHILS % (AUTO) 78.4 % (43.0-81.0); PLATELET COUNT (AUTO) 460 K/uL (150-450); RED BLOOD CELL COUNT(AUTO) 4.46 MIL/uL (4.5-6.0); WHITE BLOOD COUNT (AUTO) 16.5 K/uL (4.3-11.0)
[2021-04-25 04:51] LABS: CALCIUM, SERUM 9.2 mg/dL (8.5-10.1); CARBON DIOXIDE 30 mmol/L (21-32); CHLORIDE 110 mmol/L (98-107); CREATININE 1.6 mg/dL (0.6-1.3); GLUCOSE 185 mg/dL (74-106); MAGNESIUM 2.5 mg/dL (1.8-2.4); PHOSPHORUS 3.4 mg/dL (2.5-4.9); POTASSIUM 3.8 mmol/L (3.5-5.1); SODIUM SERUM 146 mmol/L (136-145); UREA NITROGEN, BLOOD 56 mg/dL (7-18)
[2021-04-25] MEDS: BLOOD SUGAR DIAGNOSTIC 1 EACH STRIP IN SCH ×5 (05:52→23:10)
--- NOTE | 2021-04-25 07:50 | NUR ---
ICU/RN PT IS INTUBATED ON THE VENT .OFF SEDATION FOR 24 HRS.OPEN HIS EYES ,VERY WEAK.PLACED ON SIMV MODE.V/S STABLE ,AFEBRILE.NO PAIN REPORTED AT THIS TIME.IV-HL.F/C DRAINING WITH MINESH URINE.REDNESS ON FLORENCIA AREA NOTED.CONTINUE MONITORING
[2021-04-25] MEDS: PANTOPRAZOLE 40 MG/PACK PACK GT SCH (09:18)
[2021-04-25] MEDS: FENOFIBRATE NANOCRYS (145 MG) 145 MG TABLET PO SCH (09:18)
[2021-04-25] MEDS: PAROXETINE HCL 20 MG TABLET PO SCH (09:19)
[2021-04-25] MEDS: AMLODIPINE BESYLATE 5 MG TABLET PO SCH ×2 (09:19→18:19)
[2021-04-25] MEDS: METOPROLOL TARTRATE 50 MG TABLET PO SCH ×2 (09:20→18:21)
[2021-04-25] MEDS: ASPIRIN EC 81 MG TABLET.DR PO SCH (09:20)
[2021-04-25] MEDS: CLOTRIMAZOLE 1% 15 GM TUBE TP SCH ×2 (09:23→18:21)
[2021-04-25] MEDS: ENOXAPARIN SODIUM 30 MG/0.3 ML DISP.SYRIN SQ SCH (09:23)
[2021-04-25] MEDS: MICAFUNGIN SODIUM 100 MG in IV NS 0.9% 100 ML IV SCH (10:32)
[2021-04-25] MEDS: JEVITY 1.2 CAL 1,000 ML BOTTLE GT PRN (10:32)
--- NOTE | 2021-04-25 18:00 | NUR ---
ICU/RN PM CARE PROVIDED.DUE MEDS ARE GIVEN ORDERED.PT IS STILL ON SIMV MODE.SAT O2-99%. AFEBRILE.NO PAIN REPORTED AT TIS TIME.OFF SEDATION .OPEN HIS EYES,FOLLOWS COMMAND.CONTINUE MONITORING.
--- NOTE | 2021-04-25 19:31 | NUR ---
SUPERVISOR DUMPING NOTES RECEIVED PT FOR CONTINUITY OF CARE. PATIENT ON MECHANICAL VENT; SETTING PRESCRIBED, WITH 02 SAT >95% AT THIS TIME. PT OFF SEDATION. WITH WITH NGT ON R NARE CONNECTED TO TUBE FEEDING OF JEVITY 1.2 RUNNING @50CC/HR; PT TOLERATES WELL. IV ACCESS REMAINED INTACT AND FLUSHING WELL. WITH LIRA CATH IN PLACE, MODERATE URINE OUTPUT NOTED, >100CC AT THE TIME OF RECEIVED. WILL ENSURE SAFETY MEASURES WITHIN THE SHIFT. PATIENT BED ALARM IS ON. HEAD OF BED ELEVATED. BED IS LOCKED, IN LOWEST POSITION AND SIDE RAILS UP. CALL LIGHT WITHIN REACH OF THE PATIENT. APPLICABLE ISOLATION PRECAUTIONS IN PLACE. WILL CONTINUE TO MONITOR AND REASSESS FOR ANY CHANGES AND WILL CARRY OUT ANY ONGOING AND ACTIVE MD ORDER.
[2021-04-26] VITALS (26 sets, daily range): BP systolic 123–179; BP diastolic 54–91
--- NOTE | 2021-04-26 | NUR ---
PHARMACIST MANAGER NOTES PATIENT REMAINED TO BE IN NO SIGNS OF ACUTE RESPIRATORY DISTRESS , VITAL SIGNS STABLE AT THIS TIME. REGULAR TURNING AND REPOSITIONING DONE Q2H AND SUCTIONING RENDERED. WILL CONTINUE TO MONITOR AND REASSESS FOR ANY CHANGES THROUGHOUT THE SHIFT.
[2021-04-26 05:16] LABS: CALCIUM, SERUM 9.7 mg/dL (8.5-10.1); CARBON DIOXIDE 33 mmol/L (21-32); CHLORIDE 112 mmol/L (98-107); CREATININE 1.4 mg/dL (0.6-1.3); GLUCOSE 186 mg/dL (74-106); MAGNESIUM 2.2 mg/dL (1.8-2.4); PHOSPHORUS 3.5 mg/dL (2.5-4.9); POTASSIUM 3.9 mmol/L (3.5-5.1); SODIUM SERUM 149 mmol/L (136-145); UREA NITROGEN, BLOOD 46 mg/dL (7-18)
[2021-04-26 05:19] LABS: BASOPHILS # (AUTO) 0.1 K/uL (0.0-0.2); BASOPHILS % (AUTO) 0.5 % (0.0-2.0); EOSINOPHILS % (AUTO) 1.1 % (0.0-6.0); HEMATOCRIT 41 % (39-51); HEMOGLOBIN 13.1 g/dL (13.5-17.5); LYMPHOCYTES # (AUTO) 2.3 K/uL (0.8-4.8); LYMPHOCYTES % (AUTO) 14.3 % (20.0-44.0); MEAN CORPUSCULAR HGB CONC 32 g/dl (31.0-36.0); MEAN CORPUSCULAR VOLUME 89 fL (80-96); MONOCYTES # (AUTO) 1.3 K/uL (0.1-1.30); MONOCYTES % (AUTO) 7.9 % (2.0-12.0); NEUTROPHILS % (AUTO) 76.2 % (43.0-81.0); PLATELET COUNT (AUTO) 437 K/uL (150-450); RED BLOOD CELL COUNT(AUTO) 4.65 MIL/uL (4.5-6.0); WHITE BLOOD COUNT (AUTO) 15.8 K/uL (4.3-11.0)
[2021-04-26] MEDS: BLOOD SUGAR DIAGNOSTIC 1 EACH STRIP IN SCH ×3 (05:21→18:07)
[2021-04-26] MEDS: INSULIN REGULAR, HUMAN 100 UNIT/ML 3 ML VIAL SQ PRN ×3 (05:22→18:08)
--- NOTE | 2021-04-26 06:30 | NUR ---
LOG PREPARER NOTE: PATIENT REMAINS IN ROOM IN NO SIGNS OF RESPIRATORY DISTRESS, PATIENT STILL ON MECH VENT; SETTINGS PRESCRIBED;TOLERATING WELL SATURATING @ >95% SP02. SAFETY MEASURES IMPLEMENTED, BED IN LOWEST POSITION, LOCKED, SIDE RAILS UP, CALL LIGHT WITHIN REACH. ALL NEEDS AND ORDERS ADDRESSED DURING THE SHIFT. IV ACCESS MAINTAINED INTACT, SECURED AND FLUSHING WELL. ALL DUE MEDS GIVEN ORDERED & SCHEDULED ; PATIENT TOLERATED WELL. HAS ON GOING TUBE FEEDING PRESCRIBED; TOLERATED WELL. PATIENT KEPT CLEAN AND COMFORTABLE WITHIN THE SHIFT. PATIENT ENDORSED TO INCOMING SHIFT RN WITH STABLE VITAL SIGN AND FOR CONTINUITY OF CARE.
--- NOTE | 2021-04-26 07:43 | NUR ---
RN OPENING NOTE RECEIVED PATIENT IN BED NO SIGNS OF RESPIRATORY DISTRESS, PATIENT ON MECH VENT SIMV 4, TV 500, FIO2 30% P 5. IV ACCESS NOTED ON THE R SUBCLAVIA CURRENTLY RUNNING TKO AT 10 ML/HR. PATIENT DOES HAVE A GT IN PLACE CURRENTLY RUNNING JEVITY 1.2 AT 50/ML HR WITH NO RESIDUAL . SAFETY MEASURES IMPLEMENTED, BED IN LOWEST POSITION, LOCKED, SIDE RAILS UP, CALL LIGHT WITHIN REACH.
[2021-04-26] MEDS: ASPIRIN EC 81 MG TABLET.DR PO SCH (09:23)
[2021-04-26] MEDS: PANTOPRAZOLE 40 MG/PACK PACK GT SCH (09:24)
[2021-04-26] MEDS: AMLODIPINE BESYLATE 5 MG TABLET PO SCH (09:24)
[2021-04-26] MEDS: PAROXETINE HCL 20 MG TABLET PO SCH (09:24)
[2021-04-26] MEDS: FENOFIBRATE NANOCRYS (145 MG) 145 MG TABLET PO SCH (09:24)
[2021-04-26] MEDS: METOPROLOL TARTRATE 50 MG TABLET PO SCH (09:24)
[2021-04-26] MEDS: ENOXAPARIN SODIUM 30 MG/0.3 ML DISP.SYRIN SQ SCH (09:26)
[2021-04-26] MEDS: CLOTRIMAZOLE 1% 15 GM TUBE TP SCH ×2 (09:29→17:37)
[2021-04-26] MEDS ORDERED: PHARMACY TO CHANGE PO MEDS TO GT/NG XX PRN (10:00)
[2021-04-26] MEDS ORDERED: MAGNESIUM HYDROXIDE 30 ML UDC GT PRN (10:14)
[2021-04-26] MEDS: MICAFUNGIN SODIUM 100 MG in IV NS 0.9% 100 ML IV SCH (10:26)
[2021-04-26] MEDS ORDERED: ACETAMINOPHEN 650 MG/20.3 ML UDC PO PRN (10:30)
--- NOTE | 2021-04-26 15:01 | NUR ---
RN NOTE PATIENT WAS DC. WHEELED OUT TO [facility], PICKED UP BY MICAELA. Addendum: 04/26/21 at 1848 by RENETTA RAMSAY RN DISREGARD NOTE.
[2021-04-26] MEDS: METOPROLOL TARTRATE 50 MG TABLET GT SCH (17:36)
[2021-04-26] MEDS: AMLODIPINE BESYLATE 5 MG TABLET GT SCH (17:36)
[2021-04-26] MEDS: JEVITY 1.2 CAL 1,000 ML BOTTLE GT PRN (18:10)
--- NOTE | 2021-04-26 18:48 | NUR ---
RN CLOSING NOTE RECEIVED PATIENT IN BED NO SIGNS OF RESPIRATORY DISTRESS, PATIENT ON MECH VENT SIMV 4, TV 500, FIO2 30% P 5. IV ACCESS NOTED ON THE R SUBCLAVIA CURRENTLY RUNNING TKO AT 10 ML/HR. PATIENT DOES HAVE A GT IN PLACE CURRENTLY RUNNING JEVITY 1.2 AT 50/ML HR WITH NO RESIDUAL . SAFETY MEASURES IMPLEMENTED, BED IN LOWEST POSITION, LOCKED, SIDE RAILS UP, CALL LIGHT WITHIN REACH. WILL ENDORSE TO NIGHT NURSE FOR JODY.
--- NOTE | 2021-04-26 19:20 | NUR ---
RECEIVED PT ON BED ORALLY INTUBATED ON VENT SETTING SIMV FIO2 30% SPO2 97% NO SIGN OF RESPIRATORY DISTRESS, NO SEDATION, PT AWAKE EYES OPEN FOLLOW SIMPLE COMMAND, HAVE R SUBCLAVIAN 3L CATH PATENT AND FLUSHED, HAVE RNARES NGTUBE ON PLACE WITH ONGOIGN JEVITY @ 50ML/HR TOLERATING WELL RESIDUAL OF 5ML, HAVE BILATERAL WRIST RESTRAINTS WITH CIRCULATION WILL BE CHECKED REGULARLY, HAVE LIRA CATHETER DRAINING YELLOW URINE VIA GRAVITY, BED ON LOWEST POSITION AND LOCKED SIDE RAILS UP X2 WILL CONT TO MONITOR
[2021-04-26 20:39] LABS: ABG BASE EXCESS 3.2 mmol/L; ABG OXYGEN SATURATION 98.7 % (92.0-98.5); ABG PH 7.378 (7.350-7.450); ABG PO2 138.3 mmHg (75.0-100.0); AaDO2 88.3 mmHg; COHb 0.8 % (0.5-1.5); MetHb 0.3 % (0.0-1.5); O2Hb 97.6 % (94.0-97.0); SITE, ABG Right Radial; VENT MODE, BG SIMV 4 PS 15 +5 40%
--- NOTE | 2021-04-26 20:51 | NUR ---
RT pt received on mechanical vent. orally intubated. ett size 7.5, 26@ lip. vent plugged in to red outlet. ambu bag at [facility]. alarms on and audible. small thick secretions suctioned via ett. no sob, no resp distress. will continue to monitor.
[2021-04-27] VITALS (24 sets, daily range): BP systolic 108–182; BP diastolic 43–106
[2021-04-27] MEDS: BLOOD SUGAR DIAGNOSTIC 1 EACH STRIP IN SCH ×4 (00:10→17:17)
[2021-04-27] MEDS: INSULIN REGULAR, HUMAN 100 UNIT/ML 3 ML VIAL SQ PRN ×4 (00:10→18:20)
--- NOTE | 2021-04-27 06:54 | NUR ---
PT REMAIN ON VENT STILL ORALLY INTUBATED NO SIGN OF RESPIRATORY DISTRESS NOTED, SPO2 97% TELE MONITOR READS SINUS RHYTHM WITH PVCS, NO SIGNIFICANT CHANGES ON CONDITION NOTED FREE WATER FLUSHES 300 ML Q4H GIVEN, ALL NEEDS ATTENDED, BED ON LOWEST POSITION AND LOCKED SIDE RAILS UP X2 CALL LIGHT WITHIN REACH WILL CONT TO MONITOR
[2021-04-27 07:05] LABS: CALCIUM, SERUM 9.5 mg/dL (8.5-10.1); CARBON DIOXIDE 33 mmol/L (21-32); CHLORIDE 113 mmol/L (98-107); CREATININE 1.4 mg/dL (0.6-1.3); GLUCOSE 199 mg/dL (74-106); MAGNESIUM 2.4 mg/dL (1.8-2.4); PHOSPHORUS 3.3 mg/dL (2.5-4.9); SODIUM SERUM 152 mmol/L (136-145); UREA NITROGEN, BLOOD 44 mg/dL (7-18)
[2021-04-27 07:51] LABS: BASOPHILS # (AUTO) 0.1 K/uL (0.0-0.2); BASOPHILS % (AUTO) 0.4 % (0.0-2.0); EOSINOPHILS % (AUTO) 0.5 % (0.0-6.0); HEMATOCRIT 41 % (39-51); HEMOGLOBIN 12.8 g/dL (13.5-17.5); LYMPHOCYTES # (AUTO) 1.5 K/uL (0.8-4.8); LYMPHOCYTES % (AUTO) 9.6 % (20.0-44.0); MEAN CORPUSCULAR HGB CONC 32 g/dl (31.0-36.0); MEAN CORPUSCULAR VOLUME 89 fL (80-96); MONOCYTES # (AUTO) 1.1 K/uL (0.1-1.30); NEUTROPHILS # (AUTO) 12.9 K/uL (1.8-8.9); NEUTROPHILS % (AUTO) 82.5 % (43.0-81.0); PLATELET COUNT (AUTO) 459 K/uL (150-450); RED BLOOD CELL COUNT(AUTO) 4.59 MIL/uL (4.5-6.0); WHITE BLOOD COUNT (AUTO) 15.6 K/uL (4.3-11.0)
--- NOTE | 2021-04-27 08:00 | NUR ---
rn notes Received patient on ETT/vent with ac mode, patient has no sedation, no acute respiratory distress, open eyes when calling name o2-98%, bedside monitor shows hr 72. checked residual on NGT 10ml, tolerating feeding well, keep hob elevated for aspiration precaution. due medication administered. IV access on right upper chest cath intact infusing tko @10ml/hr intact. flashed 300ml of free water Q2 ngt. assist turn a d reposition q 2 hr, sanchez draining via gravity. will follow up.
[2021-04-27] MEDS: PAROXETINE HCL 20 MG TABLET GT SCH (09:25)
[2021-04-27] MEDS: PANTOPRAZOLE 40 MG/PACK PACK GT SCH (09:25)
[2021-04-27] MEDS: AMLODIPINE BESYLATE 5 MG TABLET GT SCH ×2 (09:25→17:21)
[2021-04-27] MEDS: FENOFIBRATE NANOCRYS (145 MG) 145 MG TABLET GT SCH (09:26)
[2021-04-27] MEDS: METOPROLOL TARTRATE 50 MG TABLET GT SCH ×2 (09:27→17:20)
[2021-04-27] MEDS: ASPIRIN 81 MG TAB.CHEW GT SCH (09:28)
[2021-04-27] MEDS: CLOTRIMAZOLE 1% 15 GM TUBE TP SCH ×2 (09:28→17:17)
[2021-04-27] MEDS: ENOXAPARIN SODIUM 30 MG/0.3 ML DISP.SYRIN SQ SCH (09:29)
[2021-04-27] MEDS: MICAFUNGIN SODIUM 100 MG in IV NS 0.9% 100 ML IV SCH (10:04)
[2021-04-27] MEDS ORDERED: IV D5W 1,000 ML IV ONE (11:00)
--- NOTE | 2021-04-27 13:00 | NUR ---
rn notes bs-147 mg/dl coverage given, infusing D5W bolus because of Na level is -152, per Dr Welsh's order. patient awake. will follow up.
[2021-04-27] MEDS: IV NS 0.9% 250 ML IV PRN (16:56)
[2021-04-27] MEDS: PROPOFOL 100 ML IV PRN ×2 (18:18→23:32)
--- NOTE | 2021-04-27 18:18 | NUR ---
RN NOTES PATIENT IRRITABLE, BITING ETT TUBES, NOTIFIED DR VOGEL, AND GET ORDER RESTART SEDATION DIPRIVAN, ORDER TAKEN AND CARRIED OUT. TITRATED MEDICATION PER PROTOCOL. ENDORSED ONCOMING NURSE FOLLOW PLAN OF CARE.
[2021-04-27] MEDS: JEVITY 1.2 CAL 1,000 ML BOTTLE GT PRN (18:34)
--- NOTE | 2021-04-27 19:00 | NUR ---
RN NOTE RECEIVED PATIENT IN BED ON VENT, ORALLY INTUBATED NO SIGN OF RESPIRATORY DISTRESS NOTED, SPO2 98% TELE MONITOR READS SINUS RHYTHM WITH PVCS,IV SITES FLUSH WELL, WITH BLOOD RETURN.LIRA CATHETER NOTED, DRAINING MINESH COLOR URINE. PATIENT ON DIPRIVAN, AT 30MCG, WILL CONTINUE TO MONITOR. BED ON LOWEST POSITION AND LOCKED SIDE RAILS UP X2 CALL LIGHT WITHIN REACH WILL CONT TO MONITOR
--- NOTE | 2021-04-27 23:12 | NUR ---
NUCLEAR MEDICINE PET CT TECHNOLOGIST NOTE DAUGHTER DAJA CALLED TO GET AN UPDATE ON FATHER. INFORMED HER THAT HE IS STILL ON PROPOFOL AND IS NOT ACTIVE CURRENTLY. HIS BP IS STABLE AT 115/66. THAT NO NEW CHANGES HAVE OCCURRED SINCE I STARTED MY SHIFT.
[2021-04-28] VITALS (26 sets, daily range): BP systolic 119–169; BP diastolic 55–89
[2021-04-28] MEDS: BLOOD SUGAR DIAGNOSTIC 1 EACH STRIP IN SCH ×5 (00:27→23:27)
[2021-04-28] MEDS: INSULIN REGULAR, HUMAN 100 UNIT/ML 3 ML VIAL SQ PRN ×3 (00:29→23:28)
[2021-04-28 04:43] LABS: BASOPHILS # (AUTO) 0.1 K/uL (0.0-0.2); BASOPHILS % (AUTO) 0.9 % (0.0-2.0); EOSINOPHILS % (AUTO) 3.8 % (0.0-6.0); HEMATOCRIT 32 % (39-51); HEMOGLOBIN 10.4 g/dL (13.5-17.5); LYMPHOCYTES # (AUTO) 2.2 K/uL (0.8-4.8); LYMPHOCYTES % (AUTO) 18.7 % (20.0-44.0); MEAN CORPUSCULAR HGB CONC 32 g/dl (31.0-36.0); MEAN CORPUSCULAR VOLUME 88 fL (80-96); MONOCYTES # (AUTO) 0.7 K/uL (0.1-1.30); MONOCYTES % (AUTO) 6.1 % (2.0-12.0); NEUTROPHILS # (AUTO) 8.2 K/uL (1.8-8.9); NEUTROPHILS % (AUTO) 70.5 % (43.0-81.0); PLATELET COUNT (AUTO) 437 K/uL (150-450); RED BLOOD CELL COUNT(AUTO) 3.67 MIL/uL (4.5-6.0); WHITE BLOOD COUNT (AUTO) 11.6 K/uL (4.3-11.0)
[2021-04-28] MEDS: PROPOFOL 100 ML IV PRN ×4 (05:31→21:14)
[2021-04-28 06:27] LABS: ALANINE AMINOTRANSFERASE 10 U/L (12-78); ALKALINE PHOSPHATASE 36 U/L (46-116); ASPARTATE AMINOTRANSFERASE 12 U/L (15-37); BILIRUBIN,TOTAL 0.4 mg/dL (0.2-1.0); CALCIUM, SERUM 8.7 mg/dL (8.5-10.1); CARBON DIOXIDE 31 mmol/L (21-32); CHLORIDE 110 mmol/L (98-107); CREATININE 1.3 mg/dL (0.6-1.3); GLUCOSE 167 mg/dL (74-106); PHOSPHORUS 2.6 mg/dL (2.5-4.9); POTASSIUM 3.6 mmol/L (3.5-5.1); SODIUM SERUM 147 mmol/L (136-145); TOTAL PROTEIN, SERUM 5.8 g/dL (6.4-8.2); UREA NITROGEN, BLOOD 44 mg/dL (7-18)
--- NOTE | 2021-04-28 07:35 | NUR ---
RN NOTE PATIENT REMAINS IN BED RESTING, DIPRIVAN 30MCG INFUSING. ALL PATIENT NEEDS MET THROUGHOUT THE NIGHT. WILL ENDORSE TO AM NURSE FOR PLAN OF CARE.
--- NOTE | 2021-04-28 08:00 | NUR ---
RN NOTES PER DR MIX ORDER STOP SEDATION AT THIS TIME FOR WEANING FROM VENT. ORDER TAKEN AND CARRIED OUT. RT NOTIFIED.
[2021-04-28] MEDS: METOPROLOL TARTRATE 50 MG TABLET GT SCH ×2 (09:04→16:08)
[2021-04-28] MEDS: PAROXETINE HCL 20 MG TABLET GT SCH (09:04)
[2021-04-28] MEDS: AMLODIPINE BESYLATE 5 MG TABLET GT SCH ×2 (09:04→16:07)
[2021-04-28] MEDS: FENOFIBRATE NANOCRYS (145 MG) 145 MG TABLET GT SCH (09:05)
[2021-04-28] MEDS: ENOXAPARIN SODIUM 30 MG/0.3 ML DISP.SYRIN SQ SCH (09:05)
[2021-04-28] MEDS: PANTOPRAZOLE 40 MG/PACK PACK GT SCH (09:05)
[2021-04-28] MEDS: ASPIRIN 81 MG TAB.CHEW GT SCH (09:05)
[2021-04-28] MEDS: CLOTRIMAZOLE 1% 15 GM TUBE TP SCH ×2 (09:06→16:09)
[2021-04-28] MEDS: MICAFUNGIN SODIUM 100 MG in IV NS 0.9% 100 ML IV SCH (09:09)
--- NOTE | 2021-04-28 09:30 | NUR ---
RN NOTES PATIENT CPAP MODE AT THIS TIME PER RT. PATIENT WAKE.
--- NOTE | 2021-04-28 10:00 | NUR ---
RN NOTES PATIENT AGITATED, BITING TUBE, HR INCREASED NOTIFIED Dr VOGEL, AND GET NEW ORDER RESTART SEDATION, ORDER TAKEN AND CARRIED OUT.
[2021-04-28] MEDS: JEVITY 1.2 CAL 1,000 ML BOTTLE GT PRN (16:10)
--- NOTE | 2021-04-28 18:55 | NUR ---
rn notes patient pm care done, suction, mouth care, was mild agitated, eyes open increased sedation Diprivan 40mcg/kg/hr per protocol, running Jevity 1.2 @50ml/hr intact. keep hob elevated for aspiration precaution. Queen draining via gravity , assist turn and reposition q 2 hr. endorsed oncoming nurse follow phyllis.
--- NOTE | 2021-04-28 19:50 | NUR ---
RECEIVED PATIENT INTUBATED ON MECHANICAL VENT, TOLERATING SETTINGS WELL, ORALLY INTUBATED NO SIGN OF RESPIRATORY DISTRESS NOTED, NSR IN TELE MONITOR WITH HR 70S AT THIS TIME, F/C IN PLACED DRAINING YELLOW URINE, PATIENT ON DIPRIVAN, AT 40MCG, SEDATED, BED ON LOWEST POSITION AND LOCKED SIDE RAILS UP X2 CALL LIGHT WITHIN REACH WILL CONT TO MONITOR CLOSELY.
[2021-04-29] VITALS (30 sets, daily range): BP systolic 88–155; BP diastolic 49–77
[2021-04-29] MEDS: PROPOFOL 100 ML IV PRN ×3 (01:31→08:29)
--- NOTE | 2021-04-29 03:35 | NUR ---
NOTED PT WITH EPISODES OF AGITATION, INCREASED PROPOFOL TILL 50CMG/KG/MIN, STILL AGITATED, INFORMED DR GERBER AND REPLIED WITH ORDER TO INCREASED THE PROPOFOL ABOVE 50CMG/KG/MIN TO 100MCG/KG/MIN, ORDER NOTED AND CARRIED OUT, WILL CONT TO MONITOR CLOSELY.
[2021-04-29 04:41] LABS: BASOPHILS % (AUTO) 0.1 % (0.0-2.0); EOSINOPHILS % (AUTO) 2.4 % (0.0-6.0); HEMATOCRIT 42 % (39-51); HEMOGLOBIN 13.6 g/dL (13.5-17.5); LYMPHOCYTES # (AUTO) 0.4 K/uL (0.8-4.8); LYMPHOCYTES % (AUTO) 2.9 % (20.0-44.0); MEAN CORPUSCULAR HGB CONC 32 g/dl (31.0-36.0); MEAN CORPUSCULAR VOLUME 88 fL (80-96); MONOCYTES # (AUTO) 0.1 K/uL (0.1-1.30); MONOCYTES % (AUTO) 0.9 % (2.0-12.0); NEUTROPHILS # (AUTO) 11.6 K/uL (1.8-8.9); NEUTROPHILS % (AUTO) 93.7 % (43.0-81.0); PLATELET COUNT (AUTO) 400 K/uL (150-450); RED BLOOD CELL COUNT(AUTO) 4.81 MIL/uL (4.5-6.0); WHITE BLOOD COUNT (AUTO) 12.4 K/uL (4.3-11.0)
[2021-04-29 05:02] LABS: CALCIUM, SERUM 9.2 mg/dL (8.5-10.1); CARBON DIOXIDE 28 mmol/L (21-32); CHLORIDE 109 mmol/L (98-107); CREATININE 1.2 mg/dL (0.6-1.3); GLUCOSE 128 mg/dL (74-106); PHOSPHORUS 3.7 mg/dL (2.5-4.9); POTASSIUM 3.3 mmol/L (3.5-5.1); SODIUM SERUM 144 mmol/L (136-145); UREA NITROGEN, BLOOD 37 mg/dL (7-18)
[2021-04-29] MEDS: BLOOD SUGAR DIAGNOSTIC 1 EACH STRIP IN SCH ×4 (05:35→23:42)
[2021-04-29] MEDS: INSULIN REGULAR, HUMAN 100 UNIT/ML 3 ML VIAL SQ PRN ×2 (05:35→13:15)
--- NOTE | 2021-04-29 06:39 | NUR ---
PATIENT CONT ON MECHANICAL VENTILATOR TOLERATING SETTINGS WELL, WITH EPISODE OF AGITATION DURING TH NIGHT, GOT AN ORDER FROM DR GERBER TO GO ABOVE 50MCG/KG/MIN-100 ON PROPOFOL, RIGHT NOW SEDATED PROPOFOL AT 60MCG/KG/MIN, OTHERWISE NO CHANGE IN CONDITION DURING THE NIGHT, ON BILATERAL SOFT WRIST RESTRAINS, NO CIRCULATION COMPROMISED, NO ABNORMALITIES AT SITE, BED LOCKED AND IN LOWEST POSITION, S/R OF BED X3 UP, WILL ENDORSE CONTINUITY OF CARE TO ONCOMING NURSE.
--- NOTE | 2021-04-29 07:45 | NUR ---
ICU/RN PT IS INTUBATED ON THE VENT AC MODE.FIO2-30%,SAT O2-100%.V/S STABLE ,AFEBRILE.PT IS SEDATED WITH DIPRIVAN .RIGHT CHEST TLC.F/C DRAINING WITH MINESH URINE.BUE EDEMA NOTED.LABS REVIEW. NOTIFIED.SUCTION PROVIDED.REPOSITION FOR COMFORT.
[2021-04-29] MEDS: PAROXETINE HCL 20 MG TABLET GT SCH (08:25)
[2021-04-29] MEDS: AMLODIPINE BESYLATE 5 MG TABLET GT SCH ×2 (08:25→16:36)
[2021-04-29] MEDS: METOPROLOL TARTRATE 50 MG TABLET GT SCH ×2 (08:26→16:36)
[2021-04-29] MEDS: FENOFIBRATE NANOCRYS (145 MG) 145 MG TABLET GT SCH (08:26)
[2021-04-29] MEDS: PANTOPRAZOLE 40 MG/PACK PACK GT SCH (08:27)
[2021-04-29] MEDS: ASPIRIN 81 MG TAB.CHEW GT SCH (08:27)
[2021-04-29] MEDS: ENOXAPARIN SODIUM 30 MG/0.3 ML DISP.SYRIN SQ SCH (08:28)
[2021-04-29] MEDS: CLOTRIMAZOLE 1% 15 GM TUBE TP SCH ×2 (08:28→16:36)
--- NOTE | 2021-04-29 09:10 | NUR ---
ICU/RN DUE MEDS ARE GIVEN ORDERED.
[2021-04-29] MEDS: IV NS 0.9% 250 ML IV PRN (09:40)
[2021-04-29] MEDS: MICAFUNGIN SODIUM 100 MG in IV NS 0.9% 100 ML IV SCH (09:41)
[2021-04-29] MEDS ORDERED: POTASSIUM CHLORIDE 20 MEQ POWDER PACKET GT SCH (10:00)
[2021-04-29 10:46] LABS: BAND % (MANUAL) 20 % (0.0-5.0); EOSINOPHILS % (MANUAL) 3 % (0-4); LYMPHOCYTES % (MANUAL) 6 % (16-48); MONOCYTES % (MANUAL) 1 % (0-11.0); NEUTROPHILS % (MANUAL) 70 (42-76)
--- NOTE | 2021-04-29 14:40 | NUR ---
ICU/BINDER CASER AT BEDSIDE. DR VOGEL TALK TO THE FAMILY.CODE STATUS CHANGED TO DNR/DNI. LINA REYNA.
[2021-04-29] MEDS ORDERED: MORPHINE SULFATE INJ 4 MG/ML DISP.SYRIN IV PRN (15:30)
[2021-04-29] MEDS ORDERED: LORAZEPAM INJ 2 MG/ML VIAL IV PRN (15:30)
--- NOTE | 2021-04-29 15:45 | NUR ---
ICU/RN PT IS EXTUBATED.PLACED ON 3L N/C SAT O2-94%.AWAKE.V/S STABLE.CONTINUE MONITORING.
[2021-04-29] MEDS: JEVITY 1.2 CAL 1,000 ML BOTTLE GT PRN (16:44)
--- NOTE | 2021-04-29 16:46 | NUR ---
ICU/RN DUE MEDS ARE GIVEN ORDERED.PM CARE PROVIDED.FAMILY AT BED SIDE.OK TRANSFER PT TO M/S UNIT.WAITING FOR THE BED.
--- NOTE | 2021-04-29 17:10 | NUR ---
RT EXTUBATED PER DNR/DNI ATT PLACED ON 3L NC ABLET O COUGH UP SECRETIONS VIA ORAL SX, hhfnc ON STBY NEEDED FOR COMFORT Addendum: 04/29/21 at 1712 by ARDEN SHANE RT Amended: Links added.
--- NOTE | 2021-04-29 18:00 | NUR ---
ICU/RN PT TRANSFERED TO M/S UNIT.V/S STABLE.AFEBRILE.FAMILY AT BEDSIDE.DUE MEDS ARE GIVEN ORDERED.
--- NOTE | 2021-04-29 18:12 | NUR ---
RN NOTES PATIENT TRANSFERRED TO UNIT AT ROOM 306-1 VIA RNEY, ACCOMPANIED BY 1 ICU NURSE. BEDSIDE ENDORSEMENT DONE.
--- NOTE | 2021-04-29 19:01 | NUR ---
RN NOTES FAMILY AT BEDSIDE AND UPDATED ABOUT PATIENT'S CONDITION/PROGRESS. ATTACHED TO FEEDING TUBE VIA NGT AT 50CC/HR. PATIENT ON O2 AT 3-4L/MIN VIA NC, NOT IN ACUTE DISTRESS. SAFETY MEASURES MAINTAINED. WILL ENDORSE TO TEARER RN FOR JODY.
--- NOTE | 2021-04-29 19:10 | NUR ---
MS/RN OPENING NOTE RECEIVED PATIENT RESTING IN BED. CONFUSED AT BASELINE. NO S/SX OF PAIN NOTED AT THIS TIME. CONTINUES ON O2 3L VIA NC WITH NO S/SX OF RESPIRATORY DISTRESS NOTED. IV ACCESS TO RIGHT CHESTWALL TRIPLE LUMEN INTACT AND PATENT. CONTINUES ON IV ABX. NGT TO RIGHT NARE IN PLACE. JEVITY RUNNING AT 50ML/HR WITH NO RESIDUAL NOTED AT THIS TIME. LIRA CATHETER IN PLACE DRAINING CLEAR, YELLOW URINE. CALL LIGHT WITHIN REACH. ASPIRATION, FALL AND SAFETY PRECAUTIONS MAINTAINED. WILL CONTINUE TO MONITOR.
[2021-04-30] MEDS: BLOOD SUGAR DIAGNOSTIC 1 EACH STRIP IN SCH ×3 (05:28→17:34)
[2021-04-30] MEDS: INSULIN REGULAR, HUMAN 100 UNIT/ML 3 ML VIAL SQ PRN ×3 (05:40→17:38)
--- NOTE | 2021-04-30 06:10 | NUR ---
MS/RN CLOSING NOTE PATIENT CURRENTLY RESTING IN BED. AWAKE, ALERT AND ORIENTED X 1. NO S/SX OF PAIN NOTED AT THIS TIME. CONTINUES ON O2 3L VIA NC WITH NO S/SX OF RESPIRATORY DISTRESS NOTED. IV ACCESS TO RIGHT CHEST WALL TRIPLE LUMEN INTACT AND PATENT. CONTINUES ON IV ABX. NGT TO RIGHT NARE IN PLACE. JEVITY RUNNING AT 50ML/HR WITH NO RESIDUAL NOTED AT THIS TIME. LIRA CATHETER IN PLACE DRAINING CLEAR, MINESH URINE. CALL LIGHT WITHIN REACH. ASPIRATION, FALL AND SAFETY PRECAUTIONS MAINTAINED. WILL ENDORSE PLAN OF CARE TO ONCOMING SHIFT.
[2021-04-30 06:39] LABS: BASOPHILS % (AUTO) 0.1 % (0.0-2.0); EOSINOPHILS % (AUTO) 2.2 % (0.0-6.0); HEMATOCRIT 45 % (39-51); HEMOGLOBIN 14.8 g/dL (13.5-17.5); LYMPHOCYTES # (AUTO) 0.5 K/uL (0.8-4.8); MEAN CORPUSCULAR HGB CONC 33 g/dl (31.0-36.0); MEAN CORPUSCULAR VOLUME 87 fL (80-96); MONOCYTES # (AUTO) 0.1 K/uL (0.1-1.30); MONOCYTES % (AUTO) 0.6 % (2.0-12.0); NEUTROPHILS # (AUTO) 17.1 K/uL (1.8-8.9); NEUTROPHILS % (AUTO) 94.1 % (43.0-81.0); PLATELET COUNT (AUTO) 424 K/uL (150-450); WHITE BLOOD COUNT (AUTO) 18.2 K/uL (4.3-11.0)
--- NOTE | 2021-04-30 07:20 | NUR ---
MS RN OPENING NOTES RECEIVED PATIENT IN BED, AWAKE, A/O X1. NO SIGNS OF ACUTE DISTRESS NOTED. ON O2 @ 3 LPM VIA N/C SATURATION @98%, NO SOB NOTED. WITH NG TUBE ON RIGHT NARE, JEVITY 50 ML/HR RUNNING. WITH RCW TRIPLE LUMEN, SALINE LOCKED. NO S/SX OF PAIN AT THIS TIME. F/C INTACT, DRAINING CLEAR YELLOW URINE. SAFETY MEASURES MAINTAINED. WILL CONTINUE TO MONITOR.
[2021-04-30 07:29] LABS: CALCIUM, SERUM 10.2 mg/dL (8.5-10.1); CARBON DIOXIDE 28 mmol/L (21-32); CHLORIDE 107 mmol/L (98-107); CREATININE 1.4 mg/dL (0.6-1.3); GLUCOSE 168 mg/dL (74-106); MAGNESIUM 2.1 mg/dL (1.8-2.4); PHOSPHORUS 2.3 mg/dL (2.5-4.9); POTASSIUM 3.4 mmol/L (3.5-5.1); SODIUM SERUM 145 mmol/L (136-145); UREA NITROGEN, BLOOD 37 mg/dL (7-18)
[2021-04-30 08:00] VITALS: BP 141/64
[2021-04-30] MEDS: PANTOPRAZOLE 40 MG/PACK PACK GT SCH (09:09)
[2021-04-30] MEDS: ASPIRIN 81 MG TAB.CHEW GT SCH (09:09)
[2021-04-30] MEDS: PAROXETINE HCL 20 MG TABLET GT SCH (09:09)
[2021-04-30] MEDS: FENOFIBRATE NANOCRYS (145 MG) 145 MG TABLET GT SCH (09:09)
[2021-04-30] MEDS: METOPROLOL TARTRATE 50 MG TABLET GT SCH ×2 (09:10→16:52)
[2021-04-30] MEDS: AMLODIPINE BESYLATE 5 MG TABLET GT SCH ×2 (09:10→16:52)
[2021-04-30] MEDS: ENOXAPARIN SODIUM 30 MG/0.3 ML DISP.SYRIN SQ SCH (09:13)
[2021-04-30] MEDS: CLOTRIMAZOLE 1% 15 GM TUBE TP SCH ×2 (09:16→16:53)
[2021-04-30] MEDS: MICAFUNGIN SODIUM 100 MG in IV NS 0.9% 100 ML IV SCH (09:16)
[2021-04-30] MEDS ORDERED: NEUTRA PHOS 1 POWD.PACKET GT ONE (10:00)
[2021-04-30] MEDS ORDERED: POTASSIUM CHLORIDE 20 MEQ POWDER PACKET GT SCH (11:00)
[2021-04-30 16:00] VITALS: BP 152/82
--- NOTE | 2021-04-30 18:55 | NUR ---
MS RN CLOSING NOTES PATIENT IN BED, AWAKE, A/O X1. NO SIGNS OF ACUTE DISTRESS NOTED. REMAINS ON O2 @ 3 LPM VIA N/C SATURATION @98%, NO SOB NOTED. WITH NG TUBE ON RIGHT NARE, JEVITY 50 ML/HR RUNNING. WITH RCW TRIPLE LUMEN, SALINE LOCKED. NO S/SX OF PAIN AT THIS TIME. F/C INTACT, DRAINING CLEAR YELLOW URINE. ALL DUE MEDS GIVEN, TOLERATED WELL. ASPIRATION AND SAFETY MEASURES OBSERVED. WILL ENDORSE TO NEXT SHIFT.
[2021-04-30 20:00] VITALS: BP 150/81
[2021-04-30] MEDS: ACETAMINOPHEN 650 MG/20.3 ML UDC GT PRN (20:10)
[2021-04-30] MEDS: JEVITY 1.2 CAL 1,000 ML BOTTLE GT PRN (20:42)
[2021-05-01] MEDS: BLOOD SUGAR DIAGNOSTIC 1 EACH STRIP IN SCH ×4 (00:29→17:59)
[2021-05-01] MEDS: INSULIN REGULAR, HUMAN 100 UNIT/ML 3 ML VIAL SQ PRN ×3 (00:32→12:36)
--- NOTE | 2021-05-01 04:28 | NUR ---
Closing Notes: alert to self family at the bedside at the beginning of the shift Patient eyes open Armian speaking Asp precaution DT NGT Right Nares Checked for placement via Auscultation and in the stomach Feeding infusing 50 ml hr Water fllushes 300 ml Q 4 hours BS via auscultation oral care given with green sponge patient with many teeth missing heels kept off the bed 02 3l and sats 97 - 100%
[2021-05-01 06:49] LABS: BASOPHILS % (AUTO) 0.2 % (0.0-2.0); EOSINOPHILS % (AUTO) 0.6 % (0.0-6.0); HEMATOCRIT 41 % (39-51); LYMPHOCYTES % (AUTO) 4.4 % (20.0-44.0); MEAN CORPUSCULAR HGB CONC 32 g/dl (31.0-36.0); MEAN CORPUSCULAR VOLUME 87 fL (80-96); MONOCYTES % (AUTO) 4.5 % (2.0-12.0); NEUTROPHILS # (AUTO) 20.6 K/uL (1.8-8.9); NEUTROPHILS % (AUTO) 90.3 % (43.0-81.0); PLATELET COUNT (AUTO) 430 K/uL (150-450); RED BLOOD CELL COUNT(AUTO) 4.67 MIL/uL (4.5-6.0); WHITE BLOOD COUNT (AUTO) 22.8 K/uL (4.3-11.0)
[2021-05-01 07:13] LABS: CALCIUM, SERUM 9.1 mg/dL (8.5-10.1); CARBON DIOXIDE 29 mmol/L (21-32); CHLORIDE 108 mmol/L (98-107); CREATININE 2.5 mg/dL (0.6-1.3); GLUCOSE 189 mg/dL (74-106); PHOSPHORUS 3.8 mg/dL (2.5-4.9); POTASSIUM 4.1 mmol/L (3.5-5.1); SODIUM SERUM 144 mmol/L (136-145); UREA NITROGEN, BLOOD 53 mg/dL (7-18)
--- NOTE | 2021-05-01 07:51 | NUR ---
RN Notes Received pt. awake in bed, with oxygen and with NG tube coming out from the mouth. Outgoing and incoming RN reinserted and pt. tolerated well. X-ray ordered to confirmed placement.
[2021-05-01 08:00] VITALS: BP 156/87
[2021-05-01] MEDS ORDERED: IV NS 0.9% 500 ML IV ONE (10:00)
--- NOTE | 2021-05-01 10:26 | NUR ---
X ray result to confirm for NGT placement notified to Maria Eugenia BAKER and said it's in place.
--- NOTE | 2021-05-01 10:30 | NUR ---
Maria Eugenia BAKER in the unit and spoke to the family.
[2021-05-01] MEDS: PANTOPRAZOLE 40 MG/PACK PACK GT SCH (10:50)
[2021-05-01] MEDS: PAROXETINE HCL 20 MG TABLET GT SCH (10:50)
[2021-05-01] MEDS: ASPIRIN 81 MG TAB.CHEW GT SCH (10:50)
[2021-05-01] MEDS: FENOFIBRATE NANOCRYS (145 MG) 145 MG TABLET GT SCH (10:51)
[2021-05-01] MEDS: ENOXAPARIN SODIUM 30 MG/0.3 ML DISP.SYRIN SQ SCH (10:51)
[2021-05-01] MEDS: AMLODIPINE BESYLATE 5 MG TABLET GT SCH ×2 (10:56→17:59)
[2021-05-01] MEDS: METOPROLOL TARTRATE 50 MG TABLET GT SCH ×2 (10:57→17:59)
--- NOTE | 2021-05-01 12:13 | NUR ---
Speech therapist evaluated the pt. said pt. passed and she ordered on a diet. Speech therapist notified Maria Eugenia. Maria Eugenia VOYAGE MANAGEMENT SYSTEM OPERATOR ordered to d/c to NGT feeding and to keep the NG tube for the main time.
[2021-05-01] MEDS: CLOTRIMAZOLE 1% 15 GM TUBE TP SCH ×2 (12:16→18:01)
[2021-05-01 12:44] LABS: BASOPHILS % (AUTO) 0.2 % (0.0-2.0); EOSINOPHILS % (AUTO) 0.4 % (0.0-6.0); HEMATOCRIT 42 % (39-51); LYMPHOCYTES # (AUTO) 0.8 K/uL (0.8-4.8); LYMPHOCYTES % (AUTO) 3.7 % (20.0-44.0); MEAN CORPUSCULAR HGB CONC 31 g/dl (31.0-36.0); MEAN CORPUSCULAR VOLUME 88 fL (80-96); MONOCYTES % (AUTO) 4.4 % (2.0-12.0); NEUTROPHILS # (AUTO) 20.6 K/uL (1.8-8.9); NEUTROPHILS % (AUTO) 91.3 % (43.0-81.0); PLATELET COUNT (AUTO) 416 K/uL (150-450); RED BLOOD CELL COUNT(AUTO) 4.73 MIL/uL (4.5-6.0); WHITE BLOOD COUNT (AUTO) 22.6 K/uL (4.3-11.0)
[2021-05-01 16:08] VITALS: BP 137/59
[2021-05-01] MEDS: CHLORHEXIDINE GLUCONATE 15 ML UDC MM SCH (18:00)
--- NOTE | 2021-05-01 19:43 | NUR ---
MS RN OPENING NOTE RECEIVED PATIENT IN BED. NON-VERBAL. FAMILY MEMBERS AT BED SIDE. NO S/S OF APPARENT DISTRESS ON 3LPM OF O2 VIA NC. NOT EXHIBITING PAIN VIA FLACC. NG-TUBE IN PLACE 65 CM -- NO FEEDINGS RUNNING AT THIS TIME. RCW PICC LINE WITH 3 LUMENS -- NO FLUIDS RUNNING AT THIS TIME. LIRA CATHETER DRAINING YELLOW URINE WITH SEDIMENTS. SAFETY IN PLACE. WILL CONTINUE WITH PATIENT PLAN OF CARE.
[2021-05-01 20:00] VITALS: BP 132/75
--- NOTE | 2021-05-02 | NUR ---
temperature 98.7. Patient still somnolent at this time. will cont. to monitor.
[2021-05-02] MEDS: INSULIN REGULAR, HUMAN 100 UNIT/ML 3 ML VIAL SQ PRN ×3 (00:05→15:49)
[2021-05-02] MEDS: BLOOD SUGAR DIAGNOSTIC 1 EACH STRIP IN SCH ×4 (00:05→18:03)
--- NOTE | 2021-05-02 00:05 | NUR ---
MS RN NOTE BLOOD SUGAR 139. WILL HOLD INSULIN FOR NOW. PATIENT VERY SOMNOLENT, AND JUST PASSED THE SWALLOW EVAL BUT IT WAS ENDORSED TO ME PATIENT STILL HAS POOR PO INTAKE. WILL MONITOR FOR NOW.
--- NOTE | 2021-05-02 01:35 | NUR ---
patient more alert at this time. asked for food. fed patient pudding and Jello. tolerated po intake well without coughing and s/s of aspiration. left bed elevated for now.
--- NOTE | 2021-05-02 06:34 | NUR ---
MS RN CLOSING PATIENT MORE AWAKE AND ALERT THIS MORNING. STILL CONFUSED. NO S/S OF APPARENT DISTRESS ON 3LPM OF O2 VIA NC. NOT EXHIBITING PAIN VIA FLACC. LIRA CATH WITH OUTPUT OF 2,100 ML. ALL NEEDS ATTENDED. ALL SCHEDULED MEDICATIONS ADMINISTERED. REMAINED A-FEBRILE THE WHOLE SHIFT. NO FLUIDS RUNNING AT THIS TIME. SAFETY KEPT IN PLACE THE WHOLE SHIFT. WILL ENDORSE TO MORNING SHIFT RN FOR CONTINUITY OF CARE.
--- NOTE | 2021-05-02 07:10 | NUR ---
RN-NOTES RECEIVED PATIENT IN BED SLEEPING WITH BREATHING EVEN AND NONLABORED EASILY AROUSED,NO ACUTE DISTRESS NOTED. NON-VERBAL. ON 3L/PM OF O2 VIA NC. TUBE IN PLACE 65 CM -- NO FEEDINGS RUNNING AT THIS TIME. RCW PICC LINE WITH 3 LUMENS -- NO FLUIDS RUNNING AT THIS TIME. LIRA CATHETER DRAINING MINESH URINE . HOB AT ALL TIMES,SAFETY IN PLACE. ALL NEEDS ATTENDED AND ANTICIPATED. GOOD [facility] CARE RENDERED AND REPOSITIONED ORDERED.WILL CONTINUE WITH PATIENT PLAN OF CARE.
[2021-05-02 07:51] LABS: BASOPHILS # (AUTO) 0.1 K/uL (0.0-0.2); BASOPHILS % (AUTO) 0.5 % (0.0-2.0); EOSINOPHILS % (AUTO) 1.1 % (0.0-6.0); HEMATOCRIT 45 % (39-51); HEMOGLOBIN 14.1 g/dL (13.5-17.5); LYMPHOCYTES # (AUTO) 2.3 K/uL (0.8-4.8); MEAN CORPUSCULAR HGB CONC 32 g/dl (31.0-36.0); MEAN CORPUSCULAR VOLUME 88 fL (80-96); MONOCYTES # (AUTO) 0.7 K/uL (0.1-1.30); MONOCYTES % (AUTO) 3.6 % (2.0-12.0); NEUTROPHILS # (AUTO) 15.8 K/uL (1.8-8.9); NEUTROPHILS % (AUTO) 82.8 % (43.0-81.0); PLATELET COUNT (AUTO) 436 K/uL (150-450); RED BLOOD CELL COUNT(AUTO) 5.05 MIL/uL (4.5-6.0); WHITE BLOOD COUNT (AUTO) 19.1 K/uL (4.3-11.0)
[2021-05-02 08:30] VITALS: BP 158/74
[2021-05-02 08:59] LABS: CALCIUM, SERUM 9.3 mg/dL (8.5-10.1); CARBON DIOXIDE 30 mmol/L (21-32); CHLORIDE 112 mmol/L (98-107); CREATININE 2.6 mg/dL (0.6-1.3); GLUCOSE 184 mg/dL (74-106); POTASSIUM 3.9 mmol/L (3.5-5.1); SODIUM SERUM 151 mmol/L (136-145); UREA NITROGEN, BLOOD 57 mg/dL (7-18)
[2021-05-02] MEDS: PANTOPRAZOLE 40 MG/PACK PACK GT SCH (09:30)
[2021-05-02] MEDS: ASPIRIN 81 MG TAB.CHEW GT SCH (09:30)
[2021-05-02] MEDS: FENOFIBRATE NANOCRYS (145 MG) 145 MG TABLET GT SCH (09:30)
[2021-05-02] MEDS: AMLODIPINE BESYLATE 5 MG TABLET GT SCH ×2 (09:30→17:22)
[2021-05-02] MEDS: PAROXETINE HCL 20 MG TABLET GT SCH (09:30)
[2021-05-02] MEDS: METOPROLOL TARTRATE 50 MG TABLET GT SCH ×2 (09:30→17:23)
[2021-05-02] MEDS: ENOXAPARIN SODIUM 30 MG/0.3 ML DISP.SYRIN SQ SCH (09:34)
[2021-05-02] MEDS: CLOTRIMAZOLE 1% 15 GM TUBE TP SCH ×2 (09:45→17:25)
[2021-05-02] MEDS: CHLORHEXIDINE GLUCONATE 15 ML UDC MM SCH ×2 (09:47→17:22)
[2021-05-02] MEDS ORDERED: IV 1/2NS 1000 ML 1,000 ML IV ONE (10:30)
[2021-05-02 16:01] VITALS: BP 126/53
[2021-05-02 16:54] LABS: BILIRUBIN,URINE NEGATIVE (NEGATIVE); COLOR,URINE YELLOW (YELLOW); LEUKOCYTE ESTERASE ,URINE SMALL (NEGATIVE); NITRITE, URINE NEGATIVE (NEGATIVE); PROTEIN,URINE 100 mg/dl (NEGATIVE); UGLUCOSE NEGATIVE (NEGATIVE); UROBILINOGEN,URINE 0.2 EU/dL (0.2)
[2021-05-02 17:01] LABS: BACTERIA,URINE 1+ /HPF (None Seen); RBC,URINE 21-50 /HPF (0-2)
[2021-05-02 17:30] LABS: CREATININE, URINE 38.9 MG/DL (30.0-125.0)
--- NOTE | 2021-05-02 19:02 | NUR ---
RN-NOTES PATIENT IN BED SLEEPING WITH BREATHING EVEN AND NONLABORED EASILY AROUSED,NO ACUTE DISTRESS NOTED. NON-VERBAL. ON 3L/PM OF O2 VIA NC RCW PICC LINE WITH 3 LUMENS ONGOING IV FLUID OF NS 0.45% @ 100ML/HR . LIRA CATHETER DRAINING MINESH URINE OUT 1200ML. HOB AT ALL TIMES,SAFETY IN PLACE. ALL NEEDS ATTENDED AND ANTICIPATED. GOOD FLORENCIA CARE RENDERED AND REPOSITIONED ORDERED.WILL ENDORSE TO INCOMING NURSE FOR CONTINUITY OF CARE,
--- NOTE | 2021-05-02 19:49 | NUR ---
MS OPENING NOTE PATIENT IS RECEIVED ASLEEP IN BED ACCOMPANIED BY HIS FAMILY. A/OX1. NO S/S OF DISTRESS, BREATHING SYMMETRICALLY. ON 3L/MIN SATTING WELL. PICC RCW 3-LUMEN INTACT. SAFETY MEASURES IN PLACE: BED AT LOWEST POSITION, RAILS UP X2, CALL DURÁN WITHIN REACH. WILL CONTINUE TO MONITOR PATIENT.
[2021-05-02 20:00] VITALS: BP 146/75
[2021-05-03] MEDS: BLOOD SUGAR DIAGNOSTIC 1 EACH STRIP IN SCH ×5 (00:47→23:22)
[2021-05-03] MEDS: INSULIN REGULAR, HUMAN 100 UNIT/ML 3 ML VIAL SQ PRN ×2 (00:56→12:12)
[2021-05-03 06:16] LABS: BASOPHILS # (AUTO) 0.1 K/uL (0.0-0.2); BASOPHILS % (AUTO) 0.8 % (0.0-2.0); EOSINOPHILS % (AUTO) 2.7 % (0.0-6.0); HEMATOCRIT 43 % (39-51); HEMOGLOBIN 13.8 g/dL (13.5-17.5); LYMPHOCYTES # (AUTO) 2.3 K/uL (0.8-4.8); LYMPHOCYTES % (AUTO) 16.4 % (20.0-44.0); MEAN CORPUSCULAR HGB CONC 32 g/dl (31.0-36.0); MEAN CORPUSCULAR VOLUME 87 fL (80-96); MONOCYTES # (AUTO) 0.7 K/uL (0.1-1.30); NEUTROPHILS # (AUTO) 10.7 K/uL (1.8-8.9); NEUTROPHILS % (AUTO) 75.1 % (43.0-81.0); PLATELET COUNT (AUTO) 484 K/uL (150-450); RED BLOOD CELL COUNT(AUTO) 4.99 MIL/uL (4.5-6.0); WHITE BLOOD COUNT (AUTO) 14.3 K/uL (4.3-11.0)
--- NOTE | 2021-05-03 06:23 | NUR ---
MS CLOSING NOTE PATIENT AWAKE IN BED. A/OX1. NO S/S OF DISTRESS, BREATHING UNLABORED. 4L/MIN O2 SATTING WELL. PICC RCW 3-LUMEN INTACT. SAFETY MEASURES IN PLACE: BED AT LOWEST POSITION, RAILS UP X2, CALL DURÁN WITHIN REACH. WILL ENDORSE TO NEXT SHIFT FOR JODY.
[2021-05-03 06:56] LABS: ALANINE AMINOTRANSFERASE 12 U/L (12-78); ALBUMIN 2.3 g/dL (3.4-5.0); ALKALINE PHOSPHATASE 49 U/L (46-116); ASPARTATE AMINOTRANSFERASE 10 U/L (15-37); BILIRUBIN,TOTAL 0.4 mg/dL (0.2-1.0); CALCIUM, SERUM 9.1 mg/dL (8.5-10.1); CARBON DIOXIDE 28 mmol/L (21-32); CHLORIDE 111 mmol/L (98-107); CREATININE 2.1 mg/dL (0.6-1.3); GLUCOSE 117 mg/dL (74-106); MAGNESIUM 1.9 mg/dL (1.8-2.4); PHOSPHORUS 3.5 mg/dL (2.5-4.9); POTASSIUM 3.7 mmol/L (3.5-5.1); SODIUM SERUM 150 mmol/L (136-145); TOTAL PROTEIN, SERUM 6.9 g/dL (6.4-8.2); UREA NITROGEN, BLOOD 57 mg/dL (7-18)
--- NOTE | 2021-05-03 07:51 | NUR ---
MS RN OPENING NOTE Patient in bed, awake. A/O x 1, Angolan speaking. On O2 at 3 LPM via NC, breathing evenly and unlabored. No SOB or s/s of distress noted. IV access on RCW PICC 3 lumen, intact and patent. Queen catheter in place draining to a yellow colored urine. Safety precautions in place: bed in low, locked position; siderails up x 2; call light within reach. Will continue to monitor.
[2021-05-03 08:00] VITALS: BP 159/93
[2021-05-03] MEDS: METOPROLOL TARTRATE 50 MG TABLET GT SCH ×2 (09:26→16:44)
[2021-05-03] MEDS: PANTOPRAZOLE 40 MG/PACK PACK GT SCH (09:26)
[2021-05-03] MEDS: PAROXETINE HCL 20 MG TABLET GT SCH (09:26)
[2021-05-03] MEDS: ASPIRIN 81 MG TAB.CHEW GT SCH (09:26)
[2021-05-03] MEDS: FENOFIBRATE NANOCRYS (145 MG) 145 MG TABLET GT SCH (09:26)
[2021-05-03] MEDS: AMLODIPINE BESYLATE 5 MG TABLET GT SCH ×2 (09:27→16:45)
[2021-05-03] MEDS: CHLORHEXIDINE GLUCONATE 15 ML UDC MM SCH ×2 (09:27→16:44)
[2021-05-03] MEDS: ENOXAPARIN SODIUM 30 MG/0.3 ML DISP.SYRIN SQ SCH (09:28)
[2021-05-03] MEDS: CLOTRIMAZOLE 1% 15 GM TUBE TP SCH ×2 (09:32→16:46)
[2021-05-03] MEDS ORDERED: IV 1/2NS 1000 ML 1,000 ML IV ONE (10:30)
[2021-05-03 16:00] VITALS: BP 136/61
--- NOTE | 2021-05-03 18:00 | NUR ---
RN NOTE Patient's BS is 80, no Insulin coverage needed per sliding scale.
--- NOTE | 2021-05-03 18:55 | NUR ---
MS RN CLOSING NOTE Patient in bed, asleep. A/O x 1, Wolof speaking. On O2 at 3 LPM via NC, breathing evenly and unlabored. No SOB or s/s of distress noted. IV access on RCW PICC 3 lumen, intact and patent. Queen catheter in place draining to a yellow colored urine with an output of 1200 cc. Patient kept clean and dry. Due meds given. Safety precautions maintained: bed in low, locked position; siderails up x 2; call light within reach. Will endorse to reproducer nurse for JODY.
--- NOTE | 2021-05-03 19:15 | NUR ---
MS RN OPENING NOTES RECEIVED PATIENT ASLEEP IN BED EASILY AROUSABLE. A/O X1. PATIENT WITH REGULAR AND UNLABORED BREATHING ON 3 LPM VIA NASAL CANULA TOLERATED WELL. NO SIGNS AND SYMPTOMS OF DISTRESS NOTED AT THIS TIME. NO COMPLAINS OF PAIN OR DISCOMFORT AT THIS TIME. IV ACCESS RCW PICC LINE SL. IV ACCESS PATENT AND INTACT. SAFETY PRECAUTIONS ENFORCED WITH BED LOCKED AND AT LOWEST POSITION. SIDERAILS UP X2. CALL LIGHT WITHIN REACH AT ALL TIMES. WILL CONTINUE TO MONITOR PATIENT.
[2021-05-03 20:00] VITALS: BP 140/56
[2021-05-04] MEDS: BLOOD SUGAR DIAGNOSTIC 1 EACH STRIP IN SCH ×4 (05:07→23:32)
[2021-05-04 06:17] LABS: BASOPHILS # (AUTO) 0.1 K/uL (0.0-0.2); BASOPHILS % (AUTO) 0.7 % (0.0-2.0); EOSINOPHILS % (AUTO) 5.5 % (0.0-6.0); HEMATOCRIT 42 % (39-51); HEMOGLOBIN 13.6 g/dL (13.5-17.5); LYMPHOCYTES # (AUTO) 2.2 K/uL (0.8-4.8); LYMPHOCYTES % (AUTO) 21.8 % (20.0-44.0); MEAN CORPUSCULAR HGB CONC 32 g/dl (31.0-36.0); MEAN CORPUSCULAR VOLUME 87 fL (80-96); MONOCYTES # (AUTO) 0.7 K/uL (0.1-1.30); MONOCYTES % (AUTO) 6.5 % (2.0-12.0); NEUTROPHILS # (AUTO) 6.6 K/uL (1.8-8.9); NEUTROPHILS % (AUTO) 65.5 % (43.0-81.0); PLATELET COUNT (AUTO) 466 K/uL (150-450); RED BLOOD CELL COUNT(AUTO) 4.88 MIL/uL (4.5-6.0)
[2021-05-04 06:33] LABS: CALCIUM, SERUM 8.6 mg/dL (8.5-10.1); CARBON DIOXIDE 30 mmol/L (21-32); CHLORIDE 108 mmol/L (98-107); CREATININE 1.6 mg/dL (0.6-1.3); GLUCOSE 126 mg/dL (74-106); POTASSIUM 3.2 mmol/L (3.5-5.1); SODIUM SERUM 147 mmol/L (136-145); UREA NITROGEN, BLOOD 46 mg/dL (7-18)
--- NOTE | 2021-05-04 06:45 | NUR ---
MS RN CLOSING NOTES PATIENT STILL ASLEEP IN BED EASILY AROUSABLE. A/O X1. PATIENT WITH REGULAR AND UNLABORED BREATHING ON 3 LPM VIA NASAL CANULA TOLERATED WELL. NO SIGNS AND SYMPTOMS OF DISTRESS NOTED AT THIS TIME. NO COMPLAINS OF PAIN OR DISCOMFORT AT THIS TIME. IV ACCESS RCW PICC LINE SL. IV ACCESS PATENT AND INTACT. SAFETY PRECAUTIONS ENFORCED WITH BED LOCKED AND AT LOWEST POSITION. SIDERAILS UP X2. CALL LIGHT WITHIN REACH AT ALL TIMES. WILL ENDORSE CONTINUITY OF CARE TO DAY SHIFT NURSE.
--- NOTE | 2021-05-04 07:21 | NUR ---
MS RN OPENING NOTES RECEIVED PATIENT AWAKE IN BED EASILY AROUSABLE. A/O X1. PATIENT WITH REGULAR AND UNLABORED BREATHING ON 3 LPM VIA NASAL CANULA TOLERATED WELL. NO SIGNS AND SYMPTOMS OF DISTRESS NOTED AT THIS TIME. NO COMPLAINS OF PAIN OR DISCOMFORT AT THIS TIME. IV ACCESS RCW PICC LINE SL. IV ACCESS PATENT AND INTACT. SAFETY PRECAUTIONS ENFORCED WITH BED LOCKED AND AT LOWEST POSITION. SIDERAILS UP X2. CALL LIGHT WITHIN REACH AT ALL TIMES. WILL CONTINUE TO MONITOR
[2021-05-04] MEDS: PAROXETINE HCL 20 MG TABLET GT SCH (08:27)
[2021-05-04] MEDS: ASPIRIN 81 MG TAB.CHEW GT SCH (08:27)
[2021-05-04] MEDS: ENOXAPARIN SODIUM 30 MG/0.3 ML DISP.SYRIN SQ SCH (08:27)
[2021-05-04] MEDS: FENOFIBRATE NANOCRYS (145 MG) 145 MG TABLET GT SCH (08:27)
[2021-05-04] MEDS: PANTOPRAZOLE 40 MG/PACK PACK GT SCH (08:27)
[2021-05-04] MEDS: CHLORHEXIDINE GLUCONATE 15 ML UDC MM SCH ×2 (08:27→16:49)
[2021-05-04] MEDS: AMLODIPINE BESYLATE 5 MG TABLET GT SCH ×2 (08:28→16:49)
[2021-05-04] MEDS: METOPROLOL TARTRATE 50 MG TABLET GT SCH ×2 (08:28→16:49)
[2021-05-04] MEDS: CLOTRIMAZOLE 1% 15 GM TUBE TP SCH ×2 (08:44→16:48)
[2021-05-04] MEDS ORDERED: POTASSIUM CHLORIDE 20 MEQ POWDER PACKET GT ONE (09:30)
[2021-05-04] MEDS: INSULIN REGULAR, HUMAN 100 UNIT/ML 3 ML VIAL SQ PRN ×2 (11:18→17:11)
--- NOTE | 2021-05-04 11:18 | NUR ---
RN NOTE FAMILY AT BEDSIDE DURING ACCUCHECK, ASKED NOT TO GIVE INSULIN AT THIS TIME, BS 143. EXPLAINED RISK AND BENEFITS. FAMILY VERBALIZED UNDERSTANDING STILL REFUSED. WILL CONTINUE TO MONITOR
--- NOTE | 2021-05-04 13:44 | NUR ---
RN NOTE UPON ASSESSMENT, PATIENT NOTED WITH HEEL DISCOLORATION. MD NOTIFIED, WOUND CONSULT ORDERED, PHOTO PLACED IN CHART, MEPILEX PLACED ON HEEL.
[2021-05-04] MEDS: IV 1/2NS 1000 ML 1,000 ML IV PRN ×2 (14:14→23:18)
[2021-05-04] MEDS: MAG HYDROX/AL HYDROX/SIMETH 30 ML UDC GT PRN (15:49)
[2021-05-04] MEDS: ACETAMINOPHEN 650 MG/20.3 ML UDC GT PRN (15:53)
--- NOTE | 2021-05-04 18:26 | NUR ---
MS RN CLOSING NOTES PATIENT AWAKE IN BED EASILY AROUSABLE. A/O X1. PATIENT WITH REGULAR AND UNLABORED BREATHING ON 3 LPM VIA NASAL CANULA TOLERATED WELL. NO SIGNS AND SYMPTOMS OF DISTRESS NOTED AT THIS TIME. NO COMPLAINS OF PAIN OR DISCOMFORT AT THIS TIME. IV ACCESS RCW PICC LINE SL. IV ACCESS PATENT AND INTACT. ALL MEDICATIONS ORDERED. PATIENT TURNED AND REPOSITIONED PER PROTOCOL. PATIENT KEPT CLEAN AND DRY. SAFETY PRECAUTIONS ENFORCED WITH BED LOCKED AND AT LOWEST POSITION. SIDERAILS UP X2. CALL LIGHT WITHIN REACH AT ALL TIMES. WILL ENDORSE TO ONCOMING SHIFT
[2021-05-04 20:00] VITALS: BP 142/86
[2021-05-05] MEDS: MAG HYDROX/AL HYDROX/SIMETH 30 ML UDC GT PRN ×2 (03:16→17:15)
--- NOTE | 2021-05-05 03:31 | NUR ---
Patient screaming out reminded of call light which was within reach. Patient facial grimacing looks visibly uncomfortable, guarding abdomen, restlesss. Given PRN morphine in addition to maalox.
--- NOTE | 2021-05-05 04:56 | NUR ---
excoriation to buttocks over sacrum noted upon wednesday skin assessment, Picture taken, cleaned luis alberto guard applied, covered with mepilex and offload. wound consult in AM.
[2021-05-05] MEDS: IV 1/2NS 1000 ML 1,000 ML IV PRN ×2 (05:52→18:02)
[2021-05-05] MEDS: BLOOD SUGAR DIAGNOSTIC 1 EACH STRIP IN SCH ×3 (05:52→17:12)
[2021-05-05] MEDS: INSULIN REGULAR, HUMAN 100 UNIT/ML 3 ML VIAL SQ PRN ×2 (05:57→11:43)
--- NOTE | 2021-05-05 06:26 | NUR ---
RN CLOSING NOTES Patient has been A&Ox1, waking up confused trying to get out of bed and wanting to speak to family. Patient reoriented frequently. Did have 1 episode of stomach pain where pt. was crying out but relieved by maalox and morphine. Fall precautions/safety measures in place. Clear yellow urine draining to f/c. PICC line to chest flushed and patent 1/2 NS currently infusing at 100cc/hr. No signs of distress at this time. Patient is resting comfortably.
[2021-05-05 07:20] LABS: CALCIUM, SERUM 8.3 mg/dL (8.5-10.1); CARBON DIOXIDE 30 mmol/L (21-32); CHLORIDE 104 mmol/L (98-107); CREATININE 1.4 mg/dL (0.6-1.3); GLUCOSE 136 mg/dL (74-106); POTASSIUM 3.1 mmol/L (3.5-5.1); SODIUM SERUM 144 mmol/L (136-145); UREA NITROGEN, BLOOD 39 mg/dL (7-18)
--- NOTE | 2021-05-05 07:30 | NUR ---
MS RN OPENING NOTES RECEIVED PATIENT AWAKE IN BED EASILY AROUSABLE. A/O X1.BRUNEIAN SPEAKER. PATIENT WITH REGULAR AND UNLABORED BREATHING ON 3 LPM VIA NASAL CANULA TOLERATED WELL. NO SIGNS AND SYMPTOMS OF DISTRESS NOTED AT THIS TIME. NO COMPLAINS OF PAIN OR DISCOMFORT AT THIS TIME. IV ACCESS RCW PICC LINE SL. IV ACCESS PATENT AND INTACT. SAFETY PRECAUTIONS ENFORCED WITH BED LOCKED AND AT LOWEST POSITION. SIDERAILS UP X2. CALL LIGHT WITHIN REACH AT ALL TIMES. WILL CONTINUE TO MONITOR.
[2021-05-05 07:35] LABS: BASOPHILS # (AUTO) 0.1 K/uL (0.0-0.2); BASOPHILS % (AUTO) 0.5 % (0.0-2.0); EOSINOPHILS % (AUTO) 4.2 % (0.0-6.0); HEMATOCRIT 45 % (39-51); HEMOGLOBIN 14.4 g/dL (13.5-17.5); LYMPHOCYTES # (AUTO) 2.3 K/uL (0.8-4.8); LYMPHOCYTES % (AUTO) 17.5 % (20.0-44.0); MEAN CORPUSCULAR HGB CONC 32 g/dl (31.0-36.0); MEAN CORPUSCULAR VOLUME 86 fL (80-96); MONOCYTES # (AUTO) 0.8 K/uL (0.1-1.30); MONOCYTES % (AUTO) 5.8 % (2.0-12.0); NEUTROPHILS # (AUTO) 9.6 K/uL (1.8-8.9); PLATELET COUNT (AUTO) 466 K/uL (150-450); RED BLOOD CELL COUNT(AUTO) 5.15 MIL/uL (4.5-6.0); WHITE BLOOD COUNT (AUTO) 13.4 K/uL (4.3-11.0)
[2021-05-05 08:01] VITALS: BP 157/83
--- NOTE | 2021-05-05 08:12 | NUR ---
WOUND CARE CONSULT: PT PRESENTS WITH SOME PEELING SKIN ON INNER BUTTOCKS AND BROWN DISCOLORATION TO LEFT HEEL. NO FLUCTUANCE, ERYTHEMA OR TENDERNESS TO LEFT HEEL. DPM CONSULT CALLED TO DR HAMPAPUR. MEZA IN AGREEMENT WITH PLAN OF CARE. ALL SKIN PROTECTION MEASURES IN PLACE AND DISCUSSED WITH NURSING STAFF. PT IS ON FIRST STEP [facility]. Addendum: 05/05/21 at 0823 by CASSIDY BAY PT NOTED TO HAVE MULTIPLE CO-MORBIDITIES INCLUDING SEPSIS, PNEUMONIA, PREVIOUSLY INTUBATED, RENAL MASS, DEMENTIA, DIABETES AND CHF. DUE TO MULTIPLE CO-MORBIDITIES, FURTHER SKIN BREAKDOWN MAY BE UNAVOIDABLE.
[2021-05-05] MEDS: PAROXETINE HCL 20 MG TABLET GT SCH (09:15)
[2021-05-05] MEDS: FENOFIBRATE NANOCRYS (145 MG) 145 MG TABLET GT SCH (09:15)
[2021-05-05] MEDS: ASPIRIN 81 MG TAB.CHEW GT SCH (09:15)
[2021-05-05] MEDS: PANTOPRAZOLE 40 MG/PACK PACK GT SCH (09:15)
[2021-05-05] MEDS: AMLODIPINE BESYLATE 5 MG TABLET GT SCH ×2 (09:16→17:11)
[2021-05-05] MEDS: METOPROLOL TARTRATE 50 MG TABLET GT SCH ×2 (09:16→17:10)
[2021-05-05] MEDS: CHLORHEXIDINE GLUCONATE 15 ML UDC MM SCH ×2 (09:25→17:07)
[2021-05-05] MEDS: ENOXAPARIN SODIUM 30 MG/0.3 ML DISP.SYRIN SQ SCH (09:26)
[2021-05-05] MEDS: POTASSIUM CHLORIDE 20 MEQ POWDER PACKET GT SCH ×2 (09:55→11:21)
[2021-05-05] MEDS: CLOTRIMAZOLE 1% 15 GM TUBE TP SCH ×2 (11:44→17:12)
[2021-05-05 16:00] VITALS: BP 161/87
--- NOTE | 2021-05-05 19:30 | NUR ---
MS RN CLOSING NOTES PATIENT AWAKE IN BED EASILY AROUSABLE. A/O X1.CHINESE SPEAKER. PATIENT WITH REGULAR AND UNLABORED BREATHING ON 3 LPM VIA NASAL CANULA TOLERATED WELL. NO SIGNS AND SYMPTOMS OF DISTRESS NOTED AT THIS TIME. NO COMPLAINS OF PAIN OR DISCOMFORT AT THIS TIME. IV ACCESS RCW PICC LINE SL. IV ACCESS PATENT AND INTACT. ALL DUE MEDS GIVEN ORDERED. ASPIRATION PRECAUTION. KEPT HOB ELEVATED.SAFETY PRECAUTIONS ENFORCED WITH BED LOCKED AND AT LOWEST POSITION. SIDE RAILS UP X2. CALL LIGHT WITHIN REACH AT ALL TIMES. WILL ENDORSE FOR JODY.
[2021-05-05 20:00] VITALS: BP 157/75
--- NOTE | 2021-05-05 20:03 | NUR ---
RN OPENING NOTES RECEIVED PT IN BED, AWAKE, FAMILY AT BEDSIDE. AOx1. ON NC 3LPM AND TOLERATING WELL. NO SOB NOTED. NO S/SX OF RESPIRATORY DISTRESS NOTED. IV ACCESS IN RCW 2 LUMEN PICC LINE RUNNING NS @ 100 ML/HR. SAFETY PRECAUTIONS IN PLACE: BED IN LOWEST, LOCKED POSITION, SIDERAILS UPx2, AND BRAKES ON. TABLE AND CALL LIGHT WITHIN REACH. WILL CONTINUE TO MONITOR.
--- NOTE | 2021-05-05 20:06 | NUR ---
RN OPENING NOTES RECEIVED PT IN BED, AWAKE. AOx4, ABLE TO MAKE NEEDS KNOWN. ON NC 2LPM AND TOLERATING WELL. NO SOB NOTED. NO S/SX OF RESPIRATORY DISTRESS NOTED. IV ACCESS IN NERI MIDLINE, RCW PERMACATH, AND IRENE AVF. IV IS INTACT, PATENT, AND FLUSHING WELL. SAFETY PRECAUTIONS IN PLACE: BED IN LOWEST, LOCKED POSITION, SIDERAILS UPx2, AND BRAKES ON. TABLE AND CALL LIGHT WITHIN REACH. WILL CONTINUE TO MONITOR. Addendum: 05/06/21 at 1939 by ROSEMARY ROMAN RN PATIENT IS AOx1-2
[2021-05-06] MEDS: BLOOD SUGAR DIAGNOSTIC 1 EACH STRIP IN SCH ×5 (00:07→23:52)
[2021-05-06] MEDS: INSULIN REGULAR, HUMAN 100 UNIT/ML 3 ML VIAL SQ PRN ×4 (00:35→23:53)
[2021-05-06 04:25] LABS: BILIRUBIN,URINE NEGATIVE (NEGATIVE); COLOR,URINE YELLOW (YELLOW); LEUKOCYTE ESTERASE ,URINE SMALL (NEGATIVE); NITRITE, URINE NEGATIVE (NEGATIVE); PROTEIN,URINE NEGATIVE (NEGATIVE); UGLUCOSE NEGATIVE (NEGATIVE); UROBILINOGEN,URINE 0.2 EU/dL (0.2)
[2021-05-06] MEDS: IV 1/2NS 1000 ML 1,000 ML IV PRN (05:54)
--- NOTE | 2021-05-06 06:15 | NUR ---
NON-ADMIN INSULIN BECAUSE BS IS BORDERLINE
--- NOTE | 2021-05-06 07:30 | NUR ---
MS RN OPENING NOTES RECEIVED PATIENT ON BED AWAKE AND A/O X1-2. ON O2 AT 3LPM VIA NASAL CANNULA TOLERATING WELL. NO SOB NOTED. NOT IN DISTRESS. WITH NO COMPLAINTS OF PAIN OR DISCOMFORT AT THIS TIME. WITH IV ACCESS AT RIGHT CHEST WALL PICC LINE WITH IVF NS AT 100ML/HR INFUSING WELL. WITH LIRA CATHETER IN PLACED. SAFETY MEASURES IN PLACED. CALL LIGHT WITHIN REACH. BED ON LOWEST LOCKED POSITION, SIDE RAILS UP X2. WILL CONTINUE TO MONITOR.
--- NOTE | 2021-05-06 07:49 | NUR ---
PATIENT STABLE. REPORT GIVEN TO ONCOMING SHIFT FOR JODY.
[2021-05-06 07:58] LABS: BASOPHILS # (AUTO) 0.1 K/uL (0.0-0.2); BASOPHILS % (AUTO) 0.5 % (0.0-2.0); EOSINOPHILS % (AUTO) 3.3 % (0.0-6.0); HEMATOCRIT 42 % (39-51); HEMOGLOBIN 13.4 g/dL (13.5-17.5); LYMPHOCYTES # (AUTO) 1.7 K/uL (0.8-4.8); LYMPHOCYTES % (AUTO) 13.1 % (20.0-44.0); MEAN CORPUSCULAR HGB CONC 32 g/dl (31.0-36.0); MEAN CORPUSCULAR VOLUME 86 fL (80-96); MONOCYTES # (AUTO) 0.8 K/uL (0.1-1.30); MONOCYTES % (AUTO) 6.3 % (2.0-12.0); NEUTROPHILS # (AUTO) 9.9 K/uL (1.8-8.9); NEUTROPHILS % (AUTO) 76.8 % (43.0-81.0); PLATELET COUNT (AUTO) 467 K/uL (150-450); RED BLOOD CELL COUNT(AUTO) 4.91 MIL/uL (4.5-6.0); WHITE BLOOD COUNT (AUTO) 12.9 K/uL (4.3-11.0)
[2021-05-06 08:00] VITALS: BP 140/92
[2021-05-06] MEDS: ASPIRIN 81 MG TAB.CHEW GT SCH (08:37)
[2021-05-06] MEDS: ENOXAPARIN SODIUM 30 MG/0.3 ML DISP.SYRIN SQ SCH (08:37)
[2021-05-06] MEDS: PANTOPRAZOLE 40 MG/PACK PACK GT SCH (08:37)
[2021-05-06] MEDS: CHLORHEXIDINE GLUCONATE 15 ML UDC MM SCH ×2 (08:37→16:49)
[2021-05-06] MEDS: AMLODIPINE BESYLATE 5 MG TABLET GT SCH ×2 (08:38→16:51)
[2021-05-06] MEDS: METOPROLOL TARTRATE 50 MG TABLET GT SCH ×2 (08:38→16:50)
[2021-05-06] MEDS: PAROXETINE HCL 20 MG TABLET GT SCH (08:38)
[2021-05-06 08:39] LABS: CALCIUM, SERUM 8.6 mg/dL (8.5-10.1); CARBON DIOXIDE 30 mmol/L (21-32); CHLORIDE 108 mmol/L (98-107); CREATININE 1.9 mg/dL (0.6-1.3); GLUCOSE 135 mg/dL (74-106); POTASSIUM 3.3 mmol/L (3.5-5.1); SODIUM SERUM 146 mmol/L (136-145); UREA NITROGEN, BLOOD 40 mg/dL (7-18)
[2021-05-06] MEDS: FENOFIBRATE NANOCRYS (145 MG) 145 MG TABLET GT SCH (08:39)
[2021-05-06] MEDS: CLOTRIMAZOLE 1% 15 GM TUBE TP SCH ×2 (08:40→16:48)
[2021-05-06 09:20] LABS: BACTERIA,URINE None seen /HPF (None Seen); SQUAMOUS EPITHELIAL CELL,UR None Seen /HPF (None Seen)
[2021-05-06] MEDS ORDERED: AMLO-212 GT (09:46)
[2021-05-06] MEDS ORDERED: INSU100V28 SQ (09:46)
[2021-05-06] MEDS ORDERED: Blood Sugar Diagnostic IN (09:46)
[2021-05-06] MEDS: IV 1/2NS 1000 ML 1,000 ML IV SCH ×2 (13:17→22:11)
[2021-05-06] MEDS: ACETAMINOPHEN 650 MG/20.3 ML UDC GT PRN (14:28)
[2021-05-06 16:00] VITALS: BP 132/66
--- NOTE | 2021-05-06 18:46 | NUR ---
MS RN CLOSING NOTES PATIENT ON BED AWAKE AND A/O X1-2. ON O2 AT 3LPM VIA NASAL CANNULA TOLERATING WELL. NO SOB NOTED. NOT IN DISTRESS. WITH NO COMPLAINTS OF PAIN OR DISCOMFORT AT THIS TIME. WITH IV ACCESS AT RIGHT CHEST WALL PICC LINE WITH IVF NS AT 75ML/HR INFUSING WELL. WITH LIRA CATHETER IN PLACED DRAINING CLEAR YELLOW URINE AT 1,850ML. DUE MEDS GIVEN. SAFETY MEASURES IN PLACED. CALL LIGHT WITHIN REACH. BED ON LOWEST LOCKED POSITION, SIDE RAILS UP X2. WILL ENDORSE TO NEXT SHIFT FOR JODY.
--- NOTE | 2021-05-06 19:39 | NUR ---
RN OPENING NOTES RECEIVED PT IN BED, ASLEEP, AWAKENS TO VERBAL SITMULI, FAMILY AT BEDSIDE. AOx1, ABLE TO MAKE NEEDS KNOWN. ON NC 3LPM AND TOLERATING WELL. NO SOB NOTED. NO S/SX OF RESPIRATORY DISTRESS NOTED. IV ACCESS IN NERI MIDLINE, RCW PERMACATH, AND IRENE AVF. IV IS INTACT, PATENT, AND FLUSHING WELL. LIRA CATHETER DRAINING CLEAR, YELLOW URINE. SAFETY PRECAUTIONS IN PLACE: BED IN LOWEST, LOCKED POSITION, SIDERAILS UPx2, AND BRAKES ON. TABLE AND CALL LIGHT WITHIN REACH. WILL CONTINUE TO MONITOR. Addendum: 05/07/21 at 0649 by ROSEMARY ROMAN RN IV ACCESS IN RCW PICC LINE RUNNING 1/2 NS @ 75 ML/HR.
[2021-05-06 20:24] VITALS: BP 135/75
--- NOTE | 2021-05-06 23:54 | NUR ---
DID NOT ADMINISTER INSULIN BECAUSE BLOOD SUGAR, 131 MG/DL, WAS BORDERLINE. WILL CONTINUE TO MONITOR.
[2021-05-07] MEDS: BLOOD SUGAR DIAGNOSTIC 1 EACH STRIP IN SCH ×3 (06:08→17:59)
[2021-05-07] MEDS: INSULIN REGULAR, HUMAN 100 UNIT/ML 3 ML VIAL SQ PRN ×2 (06:09→11:55)
--- NOTE | 2021-05-07 06:10 | NUR ---
DID NOT ADMINISTER INSULIN BECAUSE BLOOD SUGAR WAS 129 MG/DL, WNL. WILL CONTINUE TO MONITOR.
--- NOTE | 2021-05-07 06:45 | NUR ---
RN CLOSING NOTES PT IN BED, ASLEEP, AWAKENS TO VERBAL SITMULI. AOx1, ABLE TO MAKE NEEDS KNOWN. ON NC 3LPM AND TOLERATING WELL. NO SOB NOTED. NO S/SX OF RESPIRATORY DISTRESS NOTED. IV ACCESS IN RCW PICC LINE RUNNING 1/2 NS @ 75 ML/HR.. LIRA CATHETER DRAINING CLEAR, YELLOW URINE WITH SEDIMENT. SAFETY PRECAUTIONS IN PLACE: BED IN LOWEST, LOCKED POSITION, SIDERAILS UPx2, AND BRAKES ON. TABLE AND CALL LIGHT WITHIN REACH. WILL ENDORSE TO ONCOMING SHIFT FOR JODY. Addendum: 05/07/21 at 0648 by ROSEMARY ROMAN RN ALL NEEDS MET. PT KEPT CLEAN AND DRY.
[2021-05-07 06:58] LABS: CALCIUM, SERUM 8.3 mg/dL (8.5-10.1); CARBON DIOXIDE 30 mmol/L (21-32); CHLORIDE 105 mmol/L (98-107); CREATININE 1.6 mg/dL (0.6-1.3); GLUCOSE 121 mg/dL (74-106); POTASSIUM 3.1 mmol/L (3.5-5.1); SODIUM SERUM 141 mmol/L (136-145); UREA NITROGEN, BLOOD 31 mg/dL (7-18)
[2021-05-07 06:59] LABS: BASOPHILS # (AUTO) 0.1 K/uL (0.0-0.2); BASOPHILS % (AUTO) 0.5 % (0.0-2.0); EOSINOPHILS % (AUTO) 3.7 % (0.0-6.0); HEMATOCRIT 40 % (39-51); HEMOGLOBIN 12.9 g/dL (13.5-17.5); LYMPHOCYTES # (AUTO) 1.4 K/uL (0.8-4.8); LYMPHOCYTES % (AUTO) 8.4 % (20.0-44.0); MEAN CORPUSCULAR HGB CONC 32 g/dl (31.0-36.0); MEAN CORPUSCULAR VOLUME 85 fL (80-96); MONOCYTES # (AUTO) 0.7 K/uL (0.1-1.30); MONOCYTES % (AUTO) 4.4 % (2.0-12.0); NEUTROPHILS # (AUTO) 13.9 K/uL (1.8-8.9); PLATELET COUNT (AUTO) 410 K/uL (150-450); RED BLOOD CELL COUNT(AUTO) 4.75 MIL/uL (4.5-6.0); WHITE BLOOD COUNT (AUTO) 16.7 K/uL (4.3-11.0)
[2021-05-07 08:00] VITALS: BP 143/72
--- NOTE | 2021-05-07 08:04 | NUR ---
RN Opening Note Patient received in bed AO x 1, no distress observed, able to responds all stimuli. Respiratory even and unlabored. Skin is warm to touch, keep clean/dry, intact IV site. Kept elevated HOB for ensure airway/aspiration precaution and remain lower position of the bed for safety. call light within reach, will continue to monitor.
[2021-05-07] MEDS: CHLORHEXIDINE GLUCONATE 15 ML UDC MM SCH ×2 (08:17→17:58)
[2021-05-07] MEDS: PANTOPRAZOLE 40 MG/PACK PACK GT SCH (08:17)
[2021-05-07] MEDS: FENOFIBRATE NANOCRYS (145 MG) 145 MG TABLET GT SCH (08:17)
[2021-05-07] MEDS: PAROXETINE HCL 20 MG TABLET GT SCH (08:17)
[2021-05-07] MEDS: ASPIRIN 81 MG TAB.CHEW GT SCH (08:17)
[2021-05-07] MEDS: METOPROLOL TARTRATE 50 MG TABLET GT SCH ×2 (08:18→17:59)
[2021-05-07] MEDS: AMLODIPINE BESYLATE 5 MG TABLET GT SCH ×2 (08:18→17:59)
[2021-05-07] MEDS: ENOXAPARIN SODIUM 30 MG/0.3 ML DISP.SYRIN SQ SCH (08:19)
[2021-05-07] MEDS: CLOTRIMAZOLE 1% 15 GM TUBE TP SCH ×2 (08:20→17:59)
[2021-05-07] MEDS ORDERED: POTASSIUM CHLORIDE 10 MEQ TABLET.SA PO ONE (10:00)
[2021-05-07] MEDS ORDERED: POTASSIUM CHLORIDE 20 MEQ TAB.PRT.SR PO SCH (10:00)
[2021-05-07] MEDS ORDERED: POTASSIUM CHLORIDE 10 MEQ TABLET.SA PO SCH (12:00)
[2021-05-07 12:28] LABS: IRON, SERUM 23 ug/dl (50-175); TOTAL IRON BINDING CAPACITY 236 ug/dl (250-450)
[2021-05-07 12:41] LABS: FERRITIN 421 ng/mL (8-388)
[2021-05-07] MEDS: IV 1/2NS 1000 ML 1,000 ML IV SCH (13:33)
[2021-05-07 16:00] VITALS: BP 136/57
--- NOTE | 2021-05-07 18:00 | NUR ---
RN Closing Note Patient is resting in bed, no distress observed. Respiratory even and unlabored on room air. Skin is warm to touch, keep clean/dry. Kept elevated HOB for ensure airway and aspiration precaution, Also lower position of the bed for safety. No adverse reaction observed form antibiotics. Call light within reach, all needs met. will endorse mine inspector.
--- NOTE | 2021-05-07 19:50 | NUR ---
MS OPENING NOTE PT IN BED WITH EYES OPEN, FAMILY AT BEDSIDE. AOx1, ABLE TO MAKE NEEDS KNOWN. PT STABLE ON 3LPM OF OXYGEN VIA NC, NO SOB NOTED. NO S/SX OF RESPIRATORY DISTRESS OR SOB NOTED. RIGHT SUBCLAVIAN PICC LINE INTACT AND RUNNING 1/2 NS @ 75 ML/HR. LIRA CATHETER IN PLACE AND DRAINING YELLOW URINE. SAFETY PRECAUTIONS IN PLACE: BED LOCKED IN LOW POSITION, SIDE RAILS UP x 2, HOB ELEVATED, TABLE AND CALL LIGHT WITHIN REACH, BED ALARM ON. WILL CONTINUE TO MONITOR PATIENT
[2021-05-07 20:00] VITALS: BP 152/75
[2021-05-08] MEDS: BLOOD SUGAR DIAGNOSTIC 1 EACH STRIP IN SCH ×4 (00:07→17:07)
[2021-05-08] MEDS: IV 1/2NS 1000 ML 1,000 ML IV SCH ×2 (03:14→14:55)
--- NOTE | 2021-05-08 03:15 | NUR ---
MS RN NOTE UNABLE TO ADMINISTER IVF IN TIME BECAUSE POWER WAS DOWN DUE TO ELECTRICAL MAINTENANCE AND OMNICELL WAS NOT WORKING
--- NOTE | 2021-05-08 06:37 | NUR ---
MS CLOSING NOTE PATIENT SLEEPING IN BED, NO SIGNIFICANT CHANGES THROUGHOUT SHIFT. PT STABLE ON 3LPM OF OXYGEN VIA NC, NO S/SX OF RESPIRATORY DISTRESS OR SOB NOTED. RIGHT SUBCLAVIAN PICC LINE INTACT AND RUNNING 1/2 NS @ 75 ML/HR. LIRA CATHETER IN PLACE AND DRAINING YELLOW URINE. MEDICATIONS GIVEN ORDERED, PT NEEDS MET THROUGHOUT SHIFT. PATIENT TURNED Q2H AND HEELS OFFLOADED. SAFETY PRECAUTIONS IN PLACE: BED LOCKED IN LOW POSITION, SIDE RAILS UP x 2, HOB ELEVATED, TABLE AND CALL LIGHT WITHIN REACH, BED ALARM ON. WILL ENDORSE TO DAY SHIFT NURSE FOR CONTINUITY OF CARE
[2021-05-08 06:49] LABS: CALCIUM, SERUM 8.5 mg/dL (8.5-10.1); CARBON DIOXIDE 31 mmol/L (21-32); CHLORIDE 102 mmol/L (98-107); CREATININE 1.4 mg/dL (0.6-1.3); GLUCOSE 128 mg/dL (74-106); POTASSIUM 3.1 mmol/L (3.5-5.1); SODIUM SERUM 140 mmol/L (136-145); UREA NITROGEN, BLOOD 21 mg/dL (7-18)
--- NOTE | 2021-05-08 07:33 | NUR ---
RN Opening Note Patient received in bed alert and oriented to person, no distress observed, able to responds all stimuli. Respiratory even and unlabored with oxygen at 3Ls. Skin is warm to touch, keep clean/dry, intact IV site. Kept elevated HOB for ensure airway/aspiration precaution and remain lower position of the bed for safety. call light within reach, will continue to monitor.
[2021-05-08 08:00] VITALS: BP 144/73
[2021-05-08 08:06] LABS: IMMUNOGLOBULIN A, SERUM 418 mg/dL (61-437); IMMUNOGLOBULIN G, SERUM 707 mg/dL (603-1613); IMMUNOGLOBULIN M, SERUM 123 mg/dL (15-143)
[2021-05-08 08:22] LABS: ALBUMIN 2.3 g/dL (3.4-5.0); BILIRUBIN,DIRECT 0.2 mg/dL (0.0-0.2); BILIRUBIN,TOTAL 0.3 mg/dL (0.2-1.0); TOTAL PROTEIN, SERUM 6.1 g/dL (6.4-8.2)
[2021-05-08] MEDS: PANTOPRAZOLE 40 MG/PACK PACK GT SCH (09:04)
[2021-05-08] MEDS: POTASSIUM CHLORIDE 20 MEQ TAB.PRT.SR PO SCH ×2 (09:04→11:37)
[2021-05-08] MEDS: CHLORHEXIDINE GLUCONATE 15 ML UDC MM SCH ×2 (09:04→17:00)
[2021-05-08] MEDS: AMLODIPINE BESYLATE 5 MG TABLET GT SCH ×2 (09:04→17:00)
[2021-05-08] MEDS: FENOFIBRATE NANOCRYS (145 MG) 145 MG TABLET GT SCH (09:05)
[2021-05-08] MEDS: METOPROLOL TARTRATE 50 MG TABLET GT SCH ×2 (09:05→17:00)
[2021-05-08] MEDS: PAROXETINE HCL 20 MG TABLET GT SCH (09:05)
[2021-05-08] MEDS: ASPIRIN 81 MG TAB.CHEW GT SCH (09:05)
[2021-05-08] MEDS: ENOXAPARIN SODIUM 30 MG/0.3 ML DISP.SYRIN SQ SCH (09:06)
[2021-05-08] MEDS: CLOTRIMAZOLE 1% 15 GM TUBE TP SCH ×2 (09:12→17:07)
[2021-05-08 11:07] LABS: *SPE A/G RATIO 0.8 (0.7-1.7); *SPE ALPHA-1-GLOBULIN 0.3 g/dL (0.0-0.4); *SPE ALPHA-2-GLOBULIN 0.9 g/dL (0.4-1.0); *SPE BETA GLOBULIN 1.1 g/dL (0.7-1.3); *SPE M-SPIKE Not Observed g/dL (Not Observed)
[2021-05-08] MEDS: INSULIN REGULAR, HUMAN 100 UNIT/ML 3 ML VIAL SQ PRN (11:49)
[2021-05-08] MEDS: FERROUS SULFATE (325 MG) 325 MG/TAB TABLET PO SCH (13:23)
[2021-05-08 16:00] VITALS: BP 141/67
--- NOTE | 2021-05-08 18:34 | NUR ---
RN Closing Note Patient is resting in bed, no distress observed. Respiratory even and unlabored on room air. Skin is warm to touch, keep clean/dry. Kept elevated HOB for ensure airway and aspiration precaution, Also lower position of the bed for safety. Patient has been ordered "place PIV then D/C central line." Questioned PHYSICIAN INTERNIST/Nera if patient needs collect tip of piccline before remove piccline. Call light within reach, all needs met. will endorse retail shift supervisor. Addendum: 05/08/21 at 1846 by CAILIN NORRIS RN error
--- NOTE | 2021-05-08 18:46 | NUR ---
RN Closing Note Patient is resting in bed, no distress observed. Respiratory even and unlabored with oxygen. Skin is warm to touch, keep clean/dry. Kept elevated HOB for ensure airway and aspiration precaution, Also lower position of the bed for safety. Patient has been ordered "place PIV then D/C central line." Questioned WORKERS COMPENSATION ADMINISTRATOR/Nera if patient needs collect tip of picc line before remove picc line. Call light within reach, all needs met. will endorse overnight babysitter.
--- NOTE | 2021-05-08 19:40 | NUR ---
RN NOTES RECEIVED PATIENT SLEEPING BUT AROUSABLE, FAMILY AT BEDSIDE, F/C DRAINING CLEAR YELLOW URINE, CENTRAL LINE IN PLACE, NOT IN DISTRESS, NO PAIN NOTED, SIDERAILSUPX2, WILL CONTINUE TO MONITOR
[2021-05-08 20:00] VITALS: BP 145/61
[2021-05-09] MEDS: BLOOD SUGAR DIAGNOSTIC 1 EACH STRIP IN SCH ×5 (00:32→23:35)
[2021-05-09] MEDS: IV 1/2NS 1000 ML 1,000 ML IV SCH (03:58)
--- NOTE | 2021-05-09 06:33 | NUR ---
RN NOTES AWAKE, DENIES PAIN, NO SOB, MORNING CARE RENDERED, CALL LIGHT WITHIN REACH, SIDERAILSUPX2, PT. NEEDS ATTENDED
[2021-05-09 07:04] LABS: BASOPHILS # (AUTO) 0.1 K/uL (0.0-0.2); BASOPHILS % (AUTO) 0.4 % (0.0-2.0); EOSINOPHILS % (AUTO) 1.5 % (0.0-6.0); HEMATOCRIT 41 % (39-51); HEMOGLOBIN 13.4 g/dL (13.5-17.5); LYMPHOCYTES # (AUTO) 1.8 K/uL (0.8-4.8); LYMPHOCYTES % (AUTO) 12.2 % (20.0-44.0); MEAN CORPUSCULAR HGB CONC 32 g/dl (31.0-36.0); MEAN CORPUSCULAR VOLUME 84 fL (80-96); MONOCYTES # (AUTO) 0.7 K/uL (0.1-1.30); MONOCYTES % (AUTO) 5.1 % (2.0-12.0); NEUTROPHILS # (AUTO) 11.8 K/uL (1.8-8.9); NEUTROPHILS % (AUTO) 80.8 % (43.0-81.0); PLATELET COUNT (AUTO) 376 K/uL (150-450); RED BLOOD CELL COUNT(AUTO) 4.89 MIL/uL (4.5-6.0); WHITE BLOOD COUNT (AUTO) 14.6 K/uL (4.3-11.0)
--- NOTE | 2021-05-09 07:15 | NUR ---
ms rn received on bed, awake,alert,oriented x 1-2,not in any form of distress, respirations even and unlabored,no sob noted, lungs are diminish, abdomen soft,positive bowel sounds,denies pain at this time,will monitor patient.
[2021-05-09 07:34] LABS: CALCIUM, SERUM 8.3 mg/dL (8.5-10.1); CREATININE 1.2 mg/dL (0.6-1.3); POTASSIUM 3.2 mmol/L (3.5-5.1)
[2021-05-09 08:00] VITALS: BP 146/87
[2021-05-09] MEDS ORDERED: POTASSIUM CHLORIDE 20 MEQ TAB.PRT.SR PO ONE (08:30)
[2021-05-09 09:13] VITALS: BP 137/85
--- NOTE | 2021-05-09 09:30 | NUR ---
ms kuhn breakfast served.due meds given,tolerated well.
[2021-05-09] MEDS: FENOFIBRATE NANOCRYS (145 MG) 145 MG TABLET GT SCH (09:43)
[2021-05-09] MEDS: PANTOPRAZOLE 40 MG/PACK PACK GT SCH (09:43)
[2021-05-09] MEDS: FERROUS SULFATE (325 MG) 325 MG/TAB TABLET PO SCH (09:43)
[2021-05-09] MEDS: PAROXETINE HCL 20 MG TABLET GT SCH (09:43)
[2021-05-09] MEDS: CHLORHEXIDINE GLUCONATE 15 ML UDC MM SCH ×2 (09:44→17:34)
[2021-05-09] MEDS: ASPIRIN 81 MG TAB.CHEW GT SCH (09:44)
[2021-05-09] MEDS: METOPROLOL TARTRATE 50 MG TABLET GT SCH ×2 (09:45→17:34)
[2021-05-09] MEDS: AMLODIPINE BESYLATE 5 MG TABLET GT SCH ×2 (09:45→17:34)
[2021-05-09] MEDS: ENOXAPARIN SODIUM 30 MG/0.3 ML DISP.SYRIN SQ SCH (09:46)
--- NOTE | 2021-05-09 10:00 | NUR ---
ms hattie was seen by id waiter/waitress take out w/ orders made and carried out.
--- NOTE | 2021-05-09 12:30 | NUR ---
ms rn bs - 209- family refused coverage because they just fed patient. no s/ sof hyperglycemia at this time.
[2021-05-09] MEDS: CLOTRIMAZOLE 1% 15 GM TUBE TP SCH ×2 (13:26→17:35)
--- NOTE | 2021-05-09 15:30 | NUR ---
ms rn bs - 132- family refused 2 units of insulin, no s/s of hyperglycemia.
--- NOTE | 2021-05-09 17:37 | NUR ---
ms rn on bed, daughter feeding patient, no distress,all needs attended.
--- NOTE | 2021-05-09 19:10 | NUR ---
MS LANG NOTES RECEIVED PATIENT SLEEPING BUT AROUSABLE, FAMILY AT BEDSIDE, F/C DRAINING CLEAR YELLOW URINE, CENTRAL LINE IN PLACE, NOT IN DISTRESS, NO PAIN NOTED, SIDERAILSUPX2, WILL CONTINUE TO MONITOR Addendum: 05/09/21 at 1914 by RHONDA COUCH RN pt to be npo after midnight for ct of the chest abdomen with contrast consent is being obtained by day shift nurse right now.
[2021-05-09 20:00] VITALS: BP 143/60
[2021-05-09] MEDS: TAMSULOSIN 0.4 MG CAP.SR.24H PO SCH (22:09)
[2021-05-09] MEDS: INSULIN REGULAR, HUMAN 100 UNIT/ML 3 ML VIAL SQ PRN (23:36)
[2021-05-09] MEDS: IV D5/0.45 NACL 1,000 ML IV PRN (23:46)
[2021-05-10] MEDS: BLOOD SUGAR DIAGNOSTIC 1 EACH STRIP IN SCH ×3 (05:07→17:16)
--- NOTE | 2021-05-10 06:44 | NUR ---
MS RN NOTES PATIENT SLEEPING BUT AROUSABLE, F/C DRAINING CLEAR YELLOW URINE, CENTRAL LINE IN PLACE, NOT IN DISTRESS, NO PAIN NOTED, SIDERAILSUPX2, PT NPO SINCE MIDNIGHT FOR CT WITH CONTRAST OF THE ABDOMEN AND PELVIS CONSENT OBTAINED YESTERDAY PLACED IN CHART.WILL ENDORSE TO DAY SHIFT NURSE.
--- NOTE | 2021-05-10 07:30 | NUR ---
MS RN OPENING NOTES RECEIVED PATIENT ON BED, RESTING AND A/O X2. ON O2 AT 2LPM VIA NASAL CANNULA TOLERATING WELL. NO SOB NOTED. NOT IN DISTRESS. WITH NO COMPLAINTS OF PAIN OR DISCOMFORT AT THIS TIME. WITH IV ACCESS AT RIGHT SUBCLAVIAN PICC LINE WITH IVF D5 1/2NS AT 75ML/HR INFUSING WELL. SAFETY MEASURES IN PLACED. CALL LIGHT WITHIN REACH. BED ON LOWEST LOCKED POSITION, SIDE RAILS UP X2. WILL CONTINUE TO MONITOR.
[2021-05-10 08:00] VITALS: BP 153/67
[2021-05-10] MEDS: CHLORHEXIDINE GLUCONATE 15 ML UDC MM SCH ×2 (08:17→16:15)
[2021-05-10] MEDS: PANTOPRAZOLE 40 MG/PACK PACK GT SCH (08:17)
[2021-05-10] MEDS: FERROUS SULFATE (325 MG) 325 MG/TAB TABLET PO SCH (08:17)
[2021-05-10] MEDS: FENOFIBRATE NANOCRYS (145 MG) 145 MG TABLET GT SCH (08:18)
[2021-05-10] MEDS: METOPROLOL TARTRATE 50 MG TABLET GT SCH ×2 (08:18→16:15)
[2021-05-10] MEDS: AMLODIPINE BESYLATE 5 MG TABLET GT SCH ×2 (08:18→16:14)
[2021-05-10] MEDS: PAROXETINE HCL 20 MG TABLET GT SCH (08:18)
[2021-05-10] MEDS: ASPIRIN 81 MG TAB.CHEW GT SCH (08:18)
[2021-05-10] MEDS: ENOXAPARIN SODIUM 30 MG/0.3 ML DISP.SYRIN SQ SCH (08:20)
[2021-05-10] MEDS: CLOTRIMAZOLE 1% 15 GM TUBE TP SCH ×2 (08:31→16:15)
[2021-05-10 13:16] LABS: CALCIUM, SERUM 8.2 mg/dL (8.5-10.1); POTASSIUM 3.2 mmol/L (3.5-5.1)
[2021-05-10] MEDS: IV D5/0.45 NACL 1,000 ML IV PRN (13:53)
[2021-05-10] MEDS ORDERED: IOHEXOL-300 100 ML VIAL IV ONE (14:01)
[2021-05-10] MEDS ORDERED: IV NS 0.9% 250 ML IV ONE (14:01)
[2021-05-10 16:00] VITALS: BP 140/76
[2021-05-10] MEDS: INSULIN REGULAR, HUMAN 100 UNIT/ML 3 ML VIAL SQ PRN (17:43)
--- NOTE | 2021-05-10 19:13 | NUR ---
MS RN CLOSING NOTES PATIENT ON BED, RESTING AND A/O X2. ON O2 AT 2LPM VIA NASAL CANNULA TOLERATING WELL. NO SOB NOTED. NOT IN DISTRESS. WITH NO COMPLAINTS OF PAIN OR DISCOMFORT AT THIS TIME. WITH IV ACCESS AT RIGHT SUBCLAVIAN PICC LINE WITH IVF D5 1/2NS AT 75ML/HR INFUSING WELL. DUE MEDS GIVEN. SAFETY MEASURES IN PLACED. CALL LIGHT WITHIN REACH. BED ON LOWEST LOCKED POSITION, SIDE RAILS UP X2. WILL ENDORSE TO NEXT SHIFT FOR JODY.
--- NOTE | 2021-05-10 19:35 | NUR ---
RN NOTES RECEIVED PATIENT AWAKE ON BED, A/OX2, POLISH SPEAKING, F/C DRAINING CLEAR YELLOW URINE, DENIES PAIN, NO SOB, CALL LIGHT WITHIN REACH, SIDERAILSUPX2, WILL CONTINUE TO MONITOR
[2021-05-10 20:00] VITALS: BP 142/76
[2021-05-10] MEDS: TAMSULOSIN 0.4 MG CAP.SR.24H PO SCH (21:20)
[2021-05-11] VITALS: BP 139/85
[2021-05-11] MEDS: BLOOD SUGAR DIAGNOSTIC 1 EACH STRIP IN SCH ×5 (00:07→23:11)
--- NOTE | 2021-05-11 00:35 | NUR ---
RN NOTES POTASSIUM WAS 3.2, GOT AN ORDER OF POTASSIUM 20 MEQ PO X1 FROM DESTINY BETHEA , ORDER NOTED AND CARRIED OUT
[2021-05-11] MEDS ORDERED: POTASSIUM CHLORIDE 20 MEQ TAB.PRT.SR PO ONE (01:00)
[2021-05-11] MEDS: IV D5/0.45 NACL 1,000 ML IV PRN ×2 (03:34→17:31)
[2021-05-11] MEDS: INSULIN REGULAR, HUMAN 100 UNIT/ML 3 ML VIAL SQ PRN ×4 (06:12→23:06)
--- NOTE | 2021-05-11 06:53 | NUR ---
RN NOTES SHAN\KE, NO PAIN NOTED, NO SOB, MORNING CARE RENDERED, SIDERAILSUPX2, PT. NEEDS ATTENDED
--- NOTE | 2021-05-11 07:15 | NUR ---
MS RN OPENING NOTES RECEIVED PATIENT IN BED AWAKE, A/O X1-2. NO SIGNS OF ACUTE DISTRESS NOTED. ON O2 @2LPM VIA N/C, TOLERATING WELL. NO SOB NOTED. NO C/O PAIN OR DISCOMFORT. WITH IV ACCESS ON RCW PICC LINE, INTACT AND PATENT. WITH D5 1/2 NS @ 75ML/HR RUNNING. WITH F/C INTACT DRAINING YELLOW COLORED URINE. SAFETY MEASURES IN PLACE. BED LOCKED AND IN LOWEST POSITION, SR UP X2, CALL LIGHT PLACED WITHIN EASY REACH. WILL CONTINUE TO MONITOR.
[2021-05-11 07:21] LABS: CALCIUM, SERUM 8.2 mg/dL (8.5-10.1); CREATININE 1.1 mg/dL (0.6-1.3); POTASSIUM 3.4 mmol/L (3.5-5.1)
[2021-05-11 07:23] LABS: HEMATOCRIT 41 % (39-51); HEMOGLOBIN 13.2 g/dL (13.5-17.5); MEAN CORPUSCULAR HGB CONC 32 g/dl (31.0-36.0); MEAN CORPUSCULAR VOLUME 84 fL (80-96); PLATELET COUNT (AUTO) 363 K/uL (150-450); RED BLOOD CELL COUNT(AUTO) 4.86 MIL/uL (4.5-6.0)
[2021-05-11] MEDS: POTASSIUM CHLORIDE 20 MEQ TAB.PRT.SR PO SCH (08:23)
[2021-05-11] MEDS: PAROXETINE HCL 20 MG TABLET GT SCH (08:23)
[2021-05-11] MEDS: ASPIRIN 81 MG TAB.CHEW GT SCH (08:24)
[2021-05-11] MEDS: FENOFIBRATE NANOCRYS (145 MG) 145 MG TABLET GT SCH (08:24)
[2021-05-11] MEDS: PANTOPRAZOLE 40 MG/PACK PACK GT SCH (08:24)
[2021-05-11] MEDS: AMLODIPINE BESYLATE 5 MG TABLET GT SCH ×2 (08:24→17:16)
[2021-05-11] MEDS: FERROUS SULFATE (325 MG) 325 MG/TAB TABLET PO SCH (08:24)
[2021-05-11] MEDS: METOPROLOL TARTRATE 50 MG TABLET GT SCH ×2 (08:24→17:16)
[2021-05-11] MEDS: CHLORHEXIDINE GLUCONATE 15 ML UDC MM SCH ×2 (08:24→17:16)
[2021-05-11] MEDS: ENOXAPARIN SODIUM 30 MG/0.3 ML DISP.SYRIN SQ SCH (08:25)
[2021-05-11] MEDS: CLOTRIMAZOLE 1% 15 GM TUBE TP SCH ×2 (08:30→17:24)
[2021-05-11 08:45] VITALS: BP 127/58
[2021-05-11 10:54] LABS: BAND % (MANUAL) 4 % (0.0-5.0); EOSINOPHILS % (MANUAL) 1 % (0-4); LYMPHOCYTES % (MANUAL) 1 % (16-48); MONOCYTES % (MANUAL) 1 % (0-11.0); NEUTROPHILS % (MANUAL) 93 (42-76)
[2021-05-11] MEDS: MAG HYDROX/AL HYDROX/SIMETH 30 ML UDC GT PRN (12:48)
[2021-05-11 15:54] VITALS: BP 128/74
--- NOTE | 2021-05-11 18:48 | NUR ---
MS RN CLOSING NOTES PATIENT IN BED AWAKE, A/O X2. NO SIGNS OF ACUTE DISTRESS NOTED. REMAINS ON O2 @2LPM VIA N/C, TOLERATING WELL. NO SOB NOTED. NO C/O PAIN OR DISCOMFORT. WITH IV ACCESS ON RCW PICC LINE, INTACT AND PATENT. WITH D5 1/2 NS @ 75ML/HR RUNNING. WITH F/C INTACT DRAINING YELLOW COLORED URINE. SAFETY MEASURES MAINTAINED. BED LOCKED AND IN LOWEST POSITION, SR UP X2, CALL LIGHT PLACED WITHIN EASY REACH. WILL ENDORSE TO NEXT SHIFT.
--- NOTE | 2021-05-11 19:35 | NUR ---
RN NOTES RECEIVED PATIENT SLEEPING BUT AROUSABLE, FAMILY AT BEDSIDE, F/C DRAINING CLEAR YELLOW URINE,DENIES PAIN, NO SOB, CALL LIGHT WITHIN REACH, SIDERAILSUPX2, WILL CONTINUE TO MONITOR
[2021-05-11 20:00] VITALS: BP 142/76
[2021-05-11] MEDS: TAMSULOSIN 0.4 MG CAP.SR.24H PO SCH (22:20)
--- NOTE | 2021-05-12 | NUR ---
RN NOTES PATIENT POINTING TO HIS STOMACH AND WAS MOANING MAALOX 30ML PO GIVEN ORDERED
[2021-05-12] MEDS: MAG HYDROX/AL HYDROX/SIMETH 30 ML UDC GT PRN (00:09)
[2021-05-12 05:55] LABS: BASOPHILS # (AUTO) 0.1 K/uL (0.0-0.2); BASOPHILS % (AUTO) 0.3 % (0.0-2.0); EOSINOPHILS % (AUTO) 0.3 % (0.0-6.0); HEMATOCRIT 39 % (39-51); HEMOGLOBIN 12.3 g/dL (13.5-17.5); LYMPHOCYTES # (AUTO) 1.1 K/uL (0.8-4.8); LYMPHOCYTES % (AUTO) 4.6 % (20.0-44.0); MEAN CORPUSCULAR HGB CONC 32 g/dl (31.0-36.0); MEAN CORPUSCULAR VOLUME 84 fL (80-96); MONOCYTES # (AUTO) 0.9 K/uL (0.1-1.30); MONOCYTES % (AUTO) 3.6 % (2.0-12.0); NEUTROPHILS # (AUTO) 22.2 K/uL (1.8-8.9); NEUTROPHILS % (AUTO) 91.2 % (43.0-81.0); PLATELET COUNT (AUTO) 295 K/uL (150-450); RED BLOOD CELL COUNT(AUTO) 4.66 MIL/uL (4.5-6.0); WHITE BLOOD COUNT (AUTO) 24.3 K/uL (4.3-11.0)
[2021-05-12] MEDS: BLOOD SUGAR DIAGNOSTIC 1 EACH STRIP IN SCH ×4 (06:07→23:42)
[2021-05-12] MEDS: IV D5/0.45 NACL 1,000 ML IV PRN (06:08)
[2021-05-12] MEDS: INSULIN REGULAR, HUMAN 100 UNIT/ML 3 ML VIAL SQ PRN ×3 (06:09→17:17)
--- NOTE | 2021-05-12 06:18 | NUR ---
RN NOTES AWAKE, MORNING CARE RENDERED, NOT IN DISTRESS, NO SOB, CALL LIGHT WITHIN REACH, SIDERAILSUPX2, PT. NEEDS ATTENDED
[2021-05-12 06:44] LABS: CALCIUM, SERUM 8.3 mg/dL (8.5-10.1); CREATININE 1.1 mg/dL (0.6-1.3); MAGNESIUM 1.4 mg/dL (1.8-2.4); PHOSPHORUS 1.3 mg/dL (2.5-4.9); POTASSIUM 3.4 mmol/L (3.5-5.1)
--- NOTE | 2021-05-12 07:20 | NUR ---
MS RN OPENING NOTES RECEIVED PATIENT IN BED AWAKE, VERBALLY RESPONSIVE. NO SIGNS OF ACUTE DISTRESS NOTED. ON O2 @2LPM VIA N/C, TOLERATING WELL, SATURATION @ 97%. NO SOB NOTED. NO C/O PAIN OR DISCOMFORT. WITH IV ACCESS ON RCW PICC LINE, INTACT AND PATENT. WITH D5 1/2 NS @ 75ML/HR RUNNING. WITH F/C INTACT DRAINING YELLOW COLORED URINE. SAFETY MEASURES IN PLACE. BED LOCKED AND IN LOWEST POSITION, SR UP X2, CALL LIGHT PLACED WITHIN EASY REACH. WILL CONTINUE TO MONITOR.
[2021-05-12] MEDS: FENOFIBRATE NANOCRYS (145 MG) 145 MG TABLET GT SCH (08:05)
[2021-05-12] MEDS: CHLORHEXIDINE GLUCONATE 15 ML UDC MM SCH ×2 (08:05→16:30)
[2021-05-12] MEDS: METOPROLOL TARTRATE 50 MG TABLET GT SCH ×2 (08:06→16:29)
[2021-05-12] MEDS: POTASSIUM CHLORIDE 20 MEQ TAB.PRT.SR PO SCH (08:06)
[2021-05-12] MEDS: AMLODIPINE BESYLATE 5 MG TABLET GT SCH ×2 (08:06→16:29)
[2021-05-12] MEDS: PANTOPRAZOLE 40 MG/PACK PACK GT SCH (08:06)
[2021-05-12] MEDS: PAROXETINE HCL 20 MG TABLET GT SCH (08:06)
[2021-05-12] MEDS: ASPIRIN 81 MG TAB.CHEW GT SCH (08:06)
[2021-05-12] MEDS: FERROUS SULFATE (325 MG) 325 MG/TAB TABLET PO SCH (08:06)
[2021-05-12] MEDS: ENOXAPARIN SODIUM 30 MG/0.3 ML DISP.SYRIN SQ SCH (08:09)
[2021-05-12] MEDS: CLOTRIMAZOLE 1% 15 GM TUBE TP SCH ×2 (08:10→17:03)
[2021-05-12 08:45] VITALS: BP 130/81
[2021-05-12] MEDS ORDERED: K PHOS NEUTRAL 250 MG TABLET PO ONE (09:30)
[2021-05-12] MEDS: MAGNESIUM OXIDE 400 MG TABLET PO SCH ×2 (09:35→10:39)
[2021-05-12 16:29] VITALS: BP 132/60
[2021-05-12] MEDS: ACETAMINOPHEN 650 MG/20.3 ML UDC GT PRN (16:39)
[2021-05-12] MEDS ORDERED: Sodium Phosphate 30 MMOL in IV NS 0.9% 250 ML IV SCH (17:00)
[2021-05-12] MEDS ORDERED: Magnesium 1GM/D5W 100ML PREMIX 100 ML IV SCH (17:00)
[2021-05-12] MEDS: ENSURE ENLIVE 237 ML LIQUID (VANILLA) PO SCH (17:03)
--- NOTE | 2021-05-12 18:00 | NUR ---
RN NOTES WENT TO PATIENT ROOM TO REMOVE PICC LINE PER DR. MARINA'S ORDER. DAUGHTER AND AT BEDSIDE. PER FAMILY THEY DON'T WANT TO REMOVE PICC LINE AT THIS TIME. WILL ENDORSE TO NEXT SHIFT.
--- NOTE | 2021-05-12 19:19 | NUR ---
RN CLOSING NOTES PATIENT RESTING IN BED. NO SIGNS OF ACUTE DISTRESS NOTED. ON O2 @2LPM VIA N/C, TOLERATING WELL, SATURATION @ 97%. NO SOB NOTED. NO C/O PAIN OR DISCOMFORT. WITH IV ACCESS ON RCW PICC LINE, INTACT AND PATENT. WITH F/C INTACT DRAINING CLEAR YELLOW COLORED URINE. ALL DUE MEDS GIVEN, TAKEM WELL. SAFETY MEASURES IN PLACE. BED LOCKED AND IN LOWEST POSITION, SR UP X2, CALL LIGHT PLACED WITHIN EASY REACH. WILL ENDORSE TO NEXT SHIFT.
--- NOTE | 2021-05-12 19:21 | NUR ---
RN MS OPENING NOTES RECEIVED ENDORSEMENT, WILL CONTINUE PLAN OF CARE. PATIENT AT BEDSIDE. PATIENT A/OX2, LITHUANIAN SPEAKING. PATIENT TOLERATING 2L NC WELL. RCW PICC LINE INTACT.FOLEYCATH IN PLACE WITH YELLOW OUTPUT. SIDE RAILS UPX2. WILL CONTINUE TO MONITOR PATIENT.
[2021-05-12 20:00] VITALS: BP 129/74
[2021-05-12] MEDS: TAMSULOSIN 0.4 MG CAP.SR.24H PO SCH (21:02)
--- NOTE | 2021-05-12 23:51 | NUR ---
MS RN NOTES PATIENT BLOOD GLUCOSE LEVEL 148 MG/DL, PER PATIENT FAMILY DO NOT ADMINISTER INSULIN IF LESS THAN 150MG/DL.
[2021-05-13] MEDS: BLOOD SUGAR DIAGNOSTIC 1 EACH STRIP IN SCH ×4 (05:36→23:34)
--- NOTE | 2021-05-13 06:34 | NUR ---
MS RN CLOSING NOTES PATIENT AWAKE IN BED, A/OX2. LATVIAN SPEAKING;RCW PICC LINE INTACT, FLUSHING WELL; NO SIGNS OF REDNESS OR INFILTRATION; LIRA CATH IN PLACE, WITH YELLOW URINE OUTPUT OF 1600CCS; SIDE RAILS UPX2, CALL LIGHT WITHIN REACH ALL NEEDS RENDERED, WILL ENDORSE PLAN OF CARE TO ONCOMING SHIFT
--- NOTE | 2021-05-13 07:30 | NUR ---
RN MS NOTES PT IN BED, AWAKE, EATING BREAKFAST, ASPIRATION PRECAUTIONS OBSERVED, ASSISTED WITH MEALS, CALL LIGHT WITHIN REACH, NO SIGN OF PAIN OR DISTRESS.
[2021-05-13 08:00] VITALS: BP 139/66
[2021-05-13] MEDS: FERROUS SULFATE (325 MG) 325 MG/TAB TABLET PO SCH (09:13)
[2021-05-13] MEDS: AMLODIPINE BESYLATE 5 MG TABLET GT SCH ×2 (09:14→17:00)
[2021-05-13] MEDS: METOPROLOL TARTRATE 50 MG TABLET GT SCH ×2 (09:14→17:00)
[2021-05-13] MEDS: PANTOPRAZOLE 40 MG/PACK PACK GT SCH (09:14)
[2021-05-13] MEDS: ASPIRIN 81 MG TAB.CHEW GT SCH (09:14)
[2021-05-13] MEDS: ENSURE ENLIVE 237 ML LIQUID (VANILLA) PO SCH ×2 (09:14→17:49)
[2021-05-13] MEDS: FENOFIBRATE NANOCRYS (145 MG) 145 MG TABLET GT SCH (09:14)
[2021-05-13] MEDS: POTASSIUM CHLORIDE 20 MEQ TAB.PRT.SR PO SCH (09:14)
[2021-05-13] MEDS: PAROXETINE HCL 20 MG TABLET GT SCH (09:14)
[2021-05-13] MEDS: ENOXAPARIN SODIUM 30 MG/0.3 ML DISP.SYRIN SQ SCH (09:15)
[2021-05-13] MEDS: CHLORHEXIDINE GLUCONATE 15 ML UDC MM SCH ×2 (09:18→17:49)
[2021-05-13] MEDS: CLOTRIMAZOLE 1% 15 GM TUBE TP SCH ×2 (09:24→18:07)
[2021-05-13 11:35] LABS: CALCIUM, SERUM 8.2 mg/dL (8.5-10.1); CREATININE 1.1 mg/dL (0.6-1.3); MAGNESIUM 1.7 mg/dL (1.8-2.4); PHOSPHORUS 2.7 mg/dL (2.5-4.9); POTASSIUM 3.3 mmol/L (3.5-5.1)
[2021-05-13 11:50] LABS: BASOPHILS # (AUTO) 0.1 K/uL (0.0-0.2); BASOPHILS % (AUTO) 0.5 % (0.0-2.0); EOSINOPHILS % (AUTO) 0.8 % (0.0-6.0); HEMATOCRIT 37 % (39-51); HEMOGLOBIN 11.9 g/dL (13.5-17.5); LYMPHOCYTES # (AUTO) 1.5 K/uL (0.8-4.8); LYMPHOCYTES % (AUTO) 9.6 % (20.0-44.0); MEAN CORPUSCULAR HGB CONC 32 g/dl (31.0-36.0); MEAN CORPUSCULAR VOLUME 84 fL (80-96); MONOCYTES # (AUTO) 1.1 K/uL (0.1-1.30); MONOCYTES % (AUTO) 6.9 % (2.0-12.0); NEUTROPHILS # (AUTO) 13.1 K/uL (1.8-8.9); NEUTROPHILS % (AUTO) 82.2 % (43.0-81.0); PLATELET COUNT (AUTO) 258 K/uL (150-450); RED BLOOD CELL COUNT(AUTO) 4.41 MIL/uL (4.5-6.0); WHITE BLOOD COUNT (AUTO) 15.9 K/uL (4.3-11.0)
[2021-05-13] MEDS: INSULIN REGULAR, HUMAN 100 UNIT/ML 3 ML VIAL SQ PRN ×3 (11:56→23:35)
--- NOTE | 2021-05-13 13:00 | NUR ---
RN MS NOTES PT IN BED, BEING ASSISTED WITH LUNCH BY FAMILY MEMBER, NO SIGN OF PAIN OR DISTRESS, KEPT COMFORTABLE IN BED, SEEN BY DR. AVLIA THIS MORNING.
[2021-05-13 16:00] VITALS: BP 121/45
[2021-05-13] MEDS: Magnesium 1GM/D5W 100ML PREMIX 100 ML IV SCH ×2 (16:06→18:05)
[2021-05-13] MEDS: CEFTRIAXONE 1 G in IV D5W 50 ML IV SCH (17:10)
--- NOTE | 2021-05-13 19:00 | NUR ---
RN MS NOTES PT IN BED, RESTING, NO COMPLAINT OF PAIN, NOT IN DISTRESS, FAMILY AT BEDSIDE, IV FLUIDS INFUSING WELL, TOLERATES CURRENT DIET, STARTED ON ROCEPHIN FOR UTI, KEPT WARM AND COMFORTABLE.
--- NOTE | 2021-05-13 19:36 | NUR ---
RN OPENING NOTE PATIENT IN BED, AWAKE. A/O X 2 AT THIS TIME, MAURITANIAN SPEAKING. PATIENT ON 2LPM, TOLERATING WELL. PATIENT NOT IN ANY PAIN AT THIS TIME. FAMILY AT BEDSIDE. PATIENT HAS A LIRA CATHETER IN PLACE DRAINING YELLOW COLORED URINE. RCW PICC PATENT AND INTACT. SAFETY MEASURES IN PLACE: BED LOCKED AND IN LOWEST POSITION, CALL LIGHT WITHIN REACH, SIDE RAILS UP. WILL MONITOR PATIENT CLOSELY.
[2021-05-13] MEDS: POTASSIUM CL. PREMIX PERIPHER. 50 ML IV SCH ×2 (20:00→21:59)
[2021-05-13 20:03] VITALS: BP 127/49
[2021-05-13] MEDS: TAMSULOSIN 0.4 MG CAP.SR.24H PO SCH (22:04)
--- NOTE | 2021-05-14 00:18 | NUR ---
RFA 20G INSERTED. PICC LINE REMOVED AND TIP PUT IN STERILE SPECIMEN CUP FOR CULTURE. CALLED LAB TO GAS LINE INSTALLER SPECIMEN.
[2021-05-14] MEDS: BLOOD SUGAR DIAGNOSTIC 1 EACH STRIP IN SCH ×3 (06:20→18:04)
[2021-05-14 06:33] LABS: BASOPHILS % (AUTO) 0.3 % (0.0-2.0); EOSINOPHILS % (AUTO) 1.2 % (0.0-6.0); HEMATOCRIT 39 % (39-51); HEMOGLOBIN 12.5 g/dL (13.5-17.5); LYMPHOCYTES # (AUTO) 1.5 K/uL (0.8-4.8); LYMPHOCYTES % (AUTO) 10.8 % (20.0-44.0); MEAN CORPUSCULAR HGB CONC 32 g/dl (31.0-36.0); MEAN CORPUSCULAR VOLUME 83 fL (80-96); MONOCYTES # (AUTO) 1.1 K/uL (0.1-1.30); MONOCYTES % (AUTO) 7.9 % (2.0-12.0); NEUTROPHILS # (AUTO) 10.8 K/uL (1.8-8.9); NEUTROPHILS % (AUTO) 79.8 % (43.0-81.0); PLATELET COUNT (AUTO) 243 K/uL (150-450); RED BLOOD CELL COUNT(AUTO) 4.64 MIL/uL (4.5-6.0); WHITE BLOOD COUNT (AUTO) 13.6 K/uL (4.3-11.0)
--- NOTE | 2021-05-14 07:26 | NUR ---
RN CLOSING NOTE PATIENT IN BED, AWAKE. A/O X 2 AT THIS TIME, SERBIAN SPEAKING. PATIENT ON 2LPM, TOLERATING WELL. PATIENT NOT IN ANY PAIN AT THIS TIME. FAMILY AT BEDSIDE. PATIENT HAS A LIRA CATHETER IN PLACE DRAINING YELLOW COLORED URINE. RCW PICC PATENT AND INTACT. SAFETY MEASURES IN PLACE: BED LOCKED AND IN LOWEST POSITION, CALL LIGHT WITHIN REACH, SIDE RAILS UP. ALL NEEDS MET THROUGHOUT THE SHIFT. AL DUE MEDS GIVEN. WILL ENDORSE JODY TO DAY SHIFT NURSE.
--- NOTE | 2021-05-14 07:30 | NUR ---
RN MS NOTES PT IN BED, SLEEPING, EASY TO AROUSE, NO SIGN OF PAIN OR DISTRESS, CALL LIGHT WITHIN REACH, IV FLUIDS INFUSING WELL, KEPT WARM AND COMFORTABLE IN BED.
[2021-05-14 07:34] LABS: CALCIUM, SERUM 8.4 mg/dL (8.5-10.1); POTASSIUM 3.6 mmol/L (3.5-5.1)
[2021-05-14 08:00] VITALS: BP 144/86
[2021-05-14] MEDS: ASPIRIN 81 MG TAB.CHEW GT SCH (08:49)
[2021-05-14] MEDS: FERROUS SULFATE (325 MG) 325 MG/TAB TABLET PO SCH (08:49)
[2021-05-14] MEDS: PANTOPRAZOLE 40 MG/PACK PACK GT SCH (08:50)
[2021-05-14] MEDS: POTASSIUM CHLORIDE 20 MEQ TAB.PRT.SR PO SCH (08:50)
[2021-05-14] MEDS: CHLORHEXIDINE GLUCONATE 15 ML UDC MM SCH ×2 (08:50→16:00)
[2021-05-14] MEDS: AMLODIPINE BESYLATE 5 MG TABLET GT SCH ×2 (08:50→16:59)
[2021-05-14] MEDS: PAROXETINE HCL 20 MG TABLET GT SCH (08:50)
[2021-05-14] MEDS: FENOFIBRATE NANOCRYS (145 MG) 145 MG TABLET GT SCH (08:50)
[2021-05-14] MEDS: METOPROLOL TARTRATE 50 MG TABLET GT SCH ×2 (08:51→16:58)
[2021-05-14] MEDS: ENOXAPARIN SODIUM 30 MG/0.3 ML DISP.SYRIN SQ SCH (08:52)
[2021-05-14] MEDS: ENSURE ENLIVE 237 ML LIQUID (VANILLA) PO SCH ×2 (08:53→16:01)
[2021-05-14] MEDS: CLOTRIMAZOLE 1% 15 GM TUBE TP SCH ×2 (08:53→17:01)
[2021-05-14] MEDS: INSULIN REGULAR, HUMAN 100 UNIT/ML 3 ML VIAL SQ PRN (11:36)
[2021-05-14] MEDS: IV D5/0.45 NACL 1,000 ML IV PRN (11:41)
[2021-05-14 15:47] VITALS: BP 120/61
[2021-05-14] MEDS: CEFTRIAXONE 1 G in IV D5W 50 ML IV SCH (17:00)
--- NOTE | 2021-05-14 19:00 | NUR ---
RN MS NOTES PT IN BED, AWAKE, ALERT, FAMILY AT BEDSIDE, NO COMPLAINT OF PAIN, NOT IN DISTRESS, PM MEDS GIVEN ORDERED, F/C IN PLACE, DRAINING WELL WITH CLEAR, YELLOW URINE, CALL LIGHT WITHIN REACH, ALL NEEDS ATTENDED.
[2021-05-14 20:00] VITALS: BP 142/71
--- NOTE | 2021-05-14 20:01 | NUR ---
MS RN OPENING NOTE PATIENT AWAKE IN BED. A/OX3, KITTITIAN SPEAKING. NO S/S OF DISTRESS, BREATHING SYMMETRICAL. NC 2L. RFA #20 INTACT AND PATENT. SAFETY MEASURES IN PLACE: BED AT LOWEST POSITION, RAILS UP X2, CALL DURÁN WITHIN REACH. WILL CONTINUE TO MONITOR.
[2021-05-14] MEDS: TAMSULOSIN 0.4 MG CAP.SR.24H PO SCH (21:06)
[2021-05-15] MEDS: BLOOD SUGAR DIAGNOSTIC 1 EACH STRIP IN SCH ×4 (00:13→17:06)
[2021-05-15] MEDS: INSULIN REGULAR, HUMAN 100 UNIT/ML 3 ML VIAL SQ PRN ×3 (00:14→17:43)
[2021-05-15 06:14] LABS: BASOPHILS % (AUTO) 0.6 % (0.0-2.0); EOSINOPHILS % (AUTO) 3.7 % (0.0-6.0); HEMATOCRIT 37 % (39-51); HEMOGLOBIN 11.8 g/dL (13.5-17.5); LYMPHOCYTES # (AUTO) 1.2 K/uL (0.8-4.8); LYMPHOCYTES % (AUTO) 15.3 % (20.0-44.0); MEAN CORPUSCULAR HGB CONC 32 g/dl (31.0-36.0); MEAN CORPUSCULAR VOLUME 84 fL (80-96); MONOCYTES # (AUTO) 0.7 K/uL (0.1-1.30); MONOCYTES % (AUTO) 9.1 % (2.0-12.0); NEUTROPHILS # (AUTO) 5.4 K/uL (1.8-8.9); NEUTROPHILS % (AUTO) 71.3 % (43.0-81.0); PLATELET COUNT (AUTO) 285 K/uL (150-450); RED BLOOD CELL COUNT(AUTO) 4.38 MIL/uL (4.5-6.0); WHITE BLOOD COUNT (AUTO) 7.6 K/uL (4.3-11.0)
--- NOTE | 2021-05-15 06:32 | NUR ---
MS RN CLOSING NOTE PATIENT ASLEEP IN BED. A/OX2-3. NO S/S OF DISTRESS, BREATHING SYMMETRICAL. RFA #20 INTACT AND PATENT W/ D5-1/2NS @ 75ML/HR. SAFETY MEASURES IN PLACE: BED AT LOWEST POSITION, RAILS UP X2, CALL DURÁN WITHIN REACH. WILL ENDORSE TO NEXT SHIFT FOR JODY.
[2021-05-15 07:13] LABS: CALCIUM, SERUM 8.5 mg/dL (8.5-10.1); CREATININE 1.1 mg/dL (0.6-1.3); POTASSIUM 4.1 mmol/L (3.5-5.1)
--- NOTE | 2021-05-15 07:20 | NUR ---
ms rn received on bed, awake,alert,oriented x 2-3,not in any form of distress, respirations even and unlabored,no sob noted, o2 on 2 liters, denies pain at this time, sanchez to gravity w/ yellowish urine output,repositioned, will monitor patient.
[2021-05-15 08:00] VITALS: BP 155/61
--- NOTE | 2021-05-15 08:20 | NUR ---
ms kuhn breakfast served,due meds given,tolerated well.
--- NOTE | 2021-05-15 09:09 | NUR ---
ms hattie was seen by dr. mirna perry/ thiago claudio and carried out.
[2021-05-15] MEDS: CHLORHEXIDINE GLUCONATE 15 ML UDC MM SCH ×2 (09:10→17:04)
[2021-05-15] MEDS: AMLODIPINE BESYLATE 5 MG TABLET GT SCH ×2 (09:11→17:04)
[2021-05-15] MEDS: FERROUS SULFATE (325 MG) 325 MG/TAB TABLET PO SCH (09:11)
[2021-05-15] MEDS: FENOFIBRATE NANOCRYS (145 MG) 145 MG TABLET GT SCH (09:11)
[2021-05-15] MEDS: METOPROLOL TARTRATE 50 MG TABLET GT SCH ×2 (09:11→17:05)
[2021-05-15] MEDS: PANTOPRAZOLE 40 MG/PACK PACK GT SCH (09:11)
[2021-05-15] MEDS: ASPIRIN 81 MG TAB.CHEW GT SCH (09:11)
[2021-05-15] MEDS: PAROXETINE HCL 20 MG TABLET GT SCH (09:13)
[2021-05-15] MEDS: POTASSIUM CHLORIDE 20 MEQ TAB.PRT.SR PO SCH (09:13)
[2021-05-15] MEDS: CLOTRIMAZOLE 1% 15 GM TUBE TP SCH ×2 (09:14→17:05)
[2021-05-15] MEDS: ENSURE ENLIVE 237 ML LIQUID (VANILLA) PO SCH ×2 (09:28→17:05)
[2021-05-15] MEDS: ENOXAPARIN SODIUM 30 MG/0.3 ML DISP.SYRIN SQ SCH (09:32)
--- NOTE | 2021-05-15 12:00 | NUR ---
ms rn on bed,no distress noted, family at bedside.
[2021-05-15] MEDS: NITROFURANTOIN/MONOHYDRATE MACROCRYSTALS 100 MG CAPSULE PO SCH ×2 (12:22→21:16)
[2021-05-15 16:00] VITALS: BP 137/61
--- NOTE | 2021-05-15 17:00 | NUR ---
ms rn was seen by dr. mejia w/ orders made and carried out.
[2021-05-15] MEDS: CEFTRIAXONE 1 G in IV D5W 50 ML IV SCH (17:09)
--- NOTE | 2021-05-15 18:51 | NUR ---
ms rn sanchez catheter removed, bladder scanner not available at this time, [facility] is checking at this time, per carbon paper coating supervisor.
--- NOTE | 2021-05-15 19:21 | NUR ---
MS RN OPENING NOTE PATIENT RECEIVED AWAKE IN BED. PATIENT IS A/OX3. NO S/S OF DISTRESS, BREATHING SYMMETRICAL. RFA #20 INTACT AND PATENT. SAFETY MEASURES IN PLACE: BED AT LOWEST POSITION, RAILS UP X2, CALL DURÁN WITHIN REACH. WILL CONTINUE TO MONITOR PATIENT.
[2021-05-15 20:00] VITALS: BP 132/74
[2021-05-15] MEDS: TAMSULOSIN 0.4 MG CAP.SR.24H PO SCH (21:16)
[2021-05-16] MEDS: BLOOD SUGAR DIAGNOSTIC 1 EACH STRIP IN SCH ×5 (00:39→21:47)
[2021-05-16] MEDS: INSULIN REGULAR, HUMAN 100 UNIT/ML 3 ML VIAL SQ PRN ×3 (00:40→21:48)
--- NOTE | 2021-05-16 01:00 | NUR ---
RN NOTE BLADDER SCAN ADMINISTERED. 737 CC FOUND PVR. 600 CC REMOVED VIA STRAIGHT CATH. PATIENT STABLE.
--- NOTE | 2021-05-16 06:00 | NUR ---
RN NOTE BLADDER SCAN ADMINISTERED. 584 CC FOUND PVR. 512 CC REMOVED VIA STRAIGHT CATH. PATIENT STABLE.
--- NOTE | 2021-05-16 06:06 | NUR ---
RN NOTE PATIENT'S 0600 BS CHECK IS 139. PATIENT'S FAMILY REFUSES INSULIN COVERAGE FOR ANYTHING BELOW 140. PATIENT IS CURRENTLY STABLE, NO S/S OF DISTRESS. WILL CONTINUE TO MONITOR PATIENT.
[2021-05-16 06:22] LABS: BASOPHILS # (AUTO) 0.1 K/uL (0.0-0.2); BASOPHILS % (AUTO) 0.9 % (0.0-2.0); EOSINOPHILS % (AUTO) 3.2 % (0.0-6.0); HEMATOCRIT 38 % (39-51); HEMOGLOBIN 12.4 g/dL (13.5-17.5); LYMPHOCYTES # (AUTO) 1.5 K/uL (0.8-4.8); LYMPHOCYTES % (AUTO) 20.6 % (20.0-44.0); MEAN CORPUSCULAR HGB CONC 32 g/dl (31.0-36.0); MEAN CORPUSCULAR VOLUME 84 fL (80-96); MONOCYTES # (AUTO) 0.6 K/uL (0.1-1.30); MONOCYTES % (AUTO) 8.6 % (2.0-12.0); NEUTROPHILS # (AUTO) 4.8 K/uL (1.8-8.9); NEUTROPHILS % (AUTO) 66.7 % (43.0-81.0); PLATELET COUNT (AUTO) 354 K/uL (150-450); RED BLOOD CELL COUNT(AUTO) 4.57 MIL/uL (4.5-6.0); WHITE BLOOD COUNT (AUTO) 7.3 K/uL (4.3-11.0)
--- NOTE | 2021-05-16 06:50 | NUR ---
MS RN CLOSING NOTE PATIENT ASLEEP IN BED. A/OX2. NO S/S OF DISTRESS, BREATHING SYMMETRICAL. LAC #20 SL INTACT AND PATENT. SAFETY MEASURES IN PLACE: BED AT LOWEST POSITION, RAILS UP X2, CALL DURÁN WITHIN REACH. WILL ENDORSE TO FOLLOWING SHIFT FOR JODY. DURING SHIFT, PATIENT PULLED OUT HIS RAC IV INSERTION. THE IV AND IV CATH WERE ACCOUNTED FOR. MINOR BLEEDING AT SITE NOTED, BUT PRESSURE DRESSING APPLIED. NO BLEEDING CURRENTLY. SITE IS CLEAN. A NEW IV (LAC #20) WAS INSERTED SUCCESSFULLY.
[2021-05-16 06:56] LABS: CALCIUM, SERUM 8.6 mg/dL (8.5-10.1); CREATININE 1.1 mg/dL (0.6-1.3)
--- NOTE | 2021-05-16 07:15 | NUR ---
ms rn received on bed, awake,alert,oriented x3,not in any form of distress, respirations even and unlabored,no sod noted,lungs are diminish, abdomen soft, bladder soft,not distended, for bladder scan due at 1200, denies pain at this time, will monitor patient.
[2021-05-16 08:00] VITALS: BP 158/89
[2021-05-16] MEDS: NITROFURANTOIN/MONOHYDRATE MACROCRYSTALS 100 MG CAPSULE PO SCH ×2 (08:59→21:06)
[2021-05-16] MEDS: CHLORHEXIDINE GLUCONATE 15 ML UDC MM SCH ×2 (08:59→17:31)
[2021-05-16] MEDS: ASPIRIN 81 MG TAB.CHEW GT SCH (08:59)
[2021-05-16] MEDS: POTASSIUM CHLORIDE 20 MEQ TAB.PRT.SR PO SCH (09:00)
[2021-05-16] MEDS: PAROXETINE HCL 20 MG TABLET GT SCH (09:00)
[2021-05-16] MEDS: FENOFIBRATE NANOCRYS (145 MG) 145 MG TABLET GT SCH (09:00)
[2021-05-16] MEDS: PANTOPRAZOLE 40 MG/PACK PACK GT SCH (09:00)
--- NOTE | 2021-05-16 09:00 | NUR ---
ms kuhn breakfast served, due meds given tolerated well
[2021-05-16] MEDS: AMLODIPINE BESYLATE 5 MG TABLET GT SCH ×2 (09:01→17:30)
[2021-05-16] MEDS: METOPROLOL TARTRATE 50 MG TABLET GT SCH ×2 (09:01→17:30)
[2021-05-16] MEDS: ENSURE ENLIVE 237 ML LIQUID (VANILLA) PO SCH ×2 (09:02→17:31)
[2021-05-16] MEDS: FERROUS SULFATE (325 MG) 325 MG/TAB TABLET PO SCH (09:04)
[2021-05-16] MEDS: CLOTRIMAZOLE 1% 15 GM TUBE TP SCH ×2 (09:05→17:32)
[2021-05-16] MEDS: ENOXAPARIN SODIUM 30 MG/0.3 ML DISP.SYRIN SQ SCH (09:06)
--- NOTE | 2021-05-16 12:00 | NUR ---
ms rn bs 117 no coverage given patient is stable
--- NOTE | 2021-05-16 12:30 | NUR ---
ms rn bladder scan done with 501ml inside, patient voided once on bed, refused to do straight cath since pt voided already.
[2021-05-16 16:00] VITALS: BP 168/90
[2021-05-16] MEDS: CEFTRIAXONE 1 G in IV D5W 50 ML IV SCH (17:29)
--- NOTE | 2021-05-16 18:00 | NUR ---
ms rn refused to do bladder scan, patient voided at the commode and voided once at the urinal like around 550ml.
--- NOTE | 2021-05-16 18:36 | NUR ---
ms rn on bed, family at bed side.
[2021-05-16 20:00] VITALS: BP 155/82
--- NOTE | 2021-05-16 20:00 | NUR ---
RN NOTES RECEIVED PATIENT IN BED, ALERT/ORIENTED X2, 2LPM VIA NC, CROATIAN SPEAKING ONLY, NO RESPIRATORY DISTRESS, NO COMPLAIN OF PAIN, INCONTINENT, WITH ORDER OF BLADDER SCAN Q6HRS, PER REPORT FROM AM NURSE, ABLE TO VOID IN URINAL AND BSC. FAMILY AT THE BEDSIDE. KEPT SAFE, WILL TRANSFER TO ANOTHER BED WITH AIR MATTRESS.
[2021-05-16] MEDS: TAMSULOSIN 0.4 MG CAP.SR.24H PO SCH (21:06)
--- NOTE | 2021-05-17 00:25 | NUR ---
RN NOTES NOTED URINE ON FLOOR, BEDSHEET WET, BLADDER SCAN PERFORMED, BVI 200 ML.
--- NOTE | 2021-05-17 05:26 | NUR ---
RN NOTES BLADDER SCAN 150 ML, VOIDING FREQUENTLY
[2021-05-17] MEDS: BLOOD SUGAR DIAGNOSTIC 1 EACH STRIP IN SCH ×2 (06:34→12:02)
[2021-05-17] MEDS: INSULIN REGULAR, HUMAN 100 UNIT/ML 3 ML VIAL SQ PRN (06:34)
--- NOTE | 2021-05-17 07:03 | NUR ---
ALERT/ORIENTED X2, PUT BACK ON 2LPM VIA NC, NO RESPIRATORY DISTRESS, DENIES PAIN AT THIS TIME, RESTLESS AT TIMES, ABLE TO VERBALIZE NEEDS, FREQUENT VOIDING VIA BED PAD, ADEQUATE URINE OUTPUT, BLADDER SCAN Q6HRS, DID NOT MEET PARAMETER FOR STRAIGHT CATH. LEFT HEEL VERY DRY, WITH RAW SKIN, COVERED WITH MEPILEX AND OFFLOADED, KEPT DRY AND CLEAN, POSSIBLE DC HOME TODAY IF FAMILY AGREES.
--- NOTE | 2021-05-17 07:20 | NUR ---
ms rn patient received on bed awake and responsive with oxygen inhalation on via nasal cannula infusing well at 2L per minute
[2021-05-17 08:00] VITALS: BP 151/65
[2021-05-17] MEDS: ENSURE ENLIVE 237 ML LIQUID (VANILLA) PO SCH (08:00)
--- NOTE | 2021-05-17 09:00 | NUR ---
ms kuhn breakfast served, due meds given, tolerated well
[2021-05-17] MEDS: PANTOPRAZOLE 40 MG/PACK PACK GT SCH (09:07)
[2021-05-17] MEDS: CHLORHEXIDINE GLUCONATE 15 ML UDC MM SCH (09:07)
[2021-05-17] MEDS: FENOFIBRATE NANOCRYS (145 MG) 145 MG TABLET GT SCH (09:07)
[2021-05-17] MEDS: FERROUS SULFATE (325 MG) 325 MG/TAB TABLET PO SCH (09:07)
[2021-05-17] MEDS: ASPIRIN 81 MG TAB.CHEW GT SCH (09:07)
[2021-05-17 09:08] VITALS: BP 151/65
[2021-05-17] MEDS: PAROXETINE HCL 20 MG TABLET GT SCH (09:08)
[2021-05-17] MEDS: AMLODIPINE BESYLATE 5 MG TABLET GT SCH (09:08)
[2021-05-17] MEDS: METOPROLOL TARTRATE 50 MG TABLET GT SCH (09:08)
[2021-05-17] MEDS: POTASSIUM CHLORIDE 20 MEQ TAB.PRT.SR PO SCH (09:09)
[2021-05-17] MEDS: CLOTRIMAZOLE 1% 15 GM TUBE TP SCH (09:12)
[2021-05-17] MEDS: NITROFURANTOIN/MONOHYDRATE MACROCRYSTALS 100 MG CAPSULE PO SCH (09:12)
[2021-05-17] MEDS: ENOXAPARIN SODIUM 30 MG/0.3 ML DISP.SYRIN SQ SCH (09:13)
--- NOTE | 2021-05-17 11:00 | NUR ---
ms rn seen by dr bradley with order to go home, with home health
--- NOTE | 2021-05-17 11:59 | NUR ---
ms rn bs- [id number]- family refused to give insulin at this time.
--- NOTE | 2021-05-17 13:20 | NUR ---
ms gas furnace installer instructions given, paper works ready, dressing done on left foot, picture taken at left foot, patient refused to take picture on sacral area, patient in a hurry to go home
--- NOTE | 2021-05-17 13:50 | NUR ---
ms rn patient went home via ambulance accompanied by family, no distress noted
[2021-05-17] MEDS ORDERED: NITR100C15 PO (14:14)
== END 2021-05-17 14:00 | disposition home health service (06) | DRG 870 ==
LOC: ER 19:59 → TRANSITION 04-11 00:53 → ICU 04-12 18:41 → TELE 04-29 18:20 → MED 04-29 20:27
PROVIDERS: ADMIT Student in an Organized Health Care Education/Training Program; ATTEND Internal Medicine
PROC: 5A1955Z Respiratory Ventilation, Greater than 96 Consecutive Hours (ICD-10-PCS; principal; 2021-04-11)
PROC: 0BH18EZ Insertion of Endotracheal Airway into Trachea, Via Natural or Artificial Opening Endoscopic (ICD-10-PCS; 2021-04-11)
PROC: 05H533Z Insertion of Infusion Device into Right Subclavian Vein, Percutaneous Approach (ICD-10-PCS; 2021-04-11)
PROC: B546ZZA Ultrasonography of Right Subclavian Vein, Guidance (ICD-10-PCS; 2021-04-11)
PROC: 0W993ZZ Drainage of Right Pleural Cavity, Percutaneous Approach (ICD-10-PCS; 2021-04-22)
DX: A41.9 Sepsis, unspecified organism (principal); J96.21 Acute and chronic respiratory failure with hypoxia; N17.0 Acute kidney failure with tubular necrosis; J18.9 Pneumonia, unspecified organism; I21.A1 Myocardial infarction type 2; J96.22 Acute and chronic respiratory failure with hypercapnia; G92.8 Other toxic encephalopathy; I50.33 Acute on chronic diastolic (congestive) heart failure; J90 Pleural effusion, not elsewhere classified; E87.2 Acidosis; I13.0 Hypertensive heart and chronic kidney disease with heart failure and stage 1 through stage 4 chronic kidney disease, or unspecified chronic kidney disease; J98.11 Atelectasis; N13.6 Pyonephrosis; N39.0 Urinary tract infection, site not specified; Z99.11 Dependence on respirator [ventilator] status; E87.0 Hyperosmolality and hypernatremia; E87.1 Hypo-osmolality and hyponatremia; J93.83 Other pneumothorax; Z20.822 Contact with and (suspected) exposure to COVID-19; I25.10 Atherosclerotic heart disease of native coronary artery without angina pectoris; Z79.899 Other long term (current) drug therapy; E78.5 Hyperlipidemia, unspecified; E78.00 Pure hypercholesterolemia, unspecified; E11.22 Type 2 diabetes mellitus with diabetic chronic kidney disease; F03.90 Unspecified dementia, unspecified severity, without behavioral disturbance, psychotic disturbance, mood disturbance, and anxiety; E83.39 Other disorders of phosphorus metabolism; D50.9 Iron deficiency anemia, unspecified; E87.6 Hypokalemia; M20.42 Other hammer toe(s) (acquired), left foot; M20.41 Other hammer toe(s) (acquired), right foot; N18.9 Chronic kidney disease, unspecified; N28.89 Other specified disorders of kidney and ureter; N32.9 Bladder disorder, unspecified; B96.20 Unspecified Escherichia coli [E. coli] as the cause of diseases classified elsewhere; R31.29 Other microscopic hematuria; Z79.84 Long term (current) use of oral hypoglycemic drugs; E83.41 Hypermagnesemia; E83.42 Hypomagnesemia; J43.9 Emphysema, unspecified; I71.4 Abdominal aortic aneurysm, without rupture; Z66 Do not resuscitate; B37.9 Candidiasis, unspecified; L89.626 Pressure-induced deep tissue damage of left heel; Z99.81 Dependence on supplemental oxygen
CPT/HCPCS: 31720; 32551; 36415; 36600; 70450-TC; 71045-TC; 71250-TC; 71260-TC; 76700-TC; 76770-TC; 80048-TC; 80053-TC; 80076-TC; 80202-TC; 81001; 82533; 82570-TC; 82728-TC; 82784; 82803-TC; 82962-TC; 83540-TC; 83735-TC; 83880; 84100-TC; 84155; 84165; 84300-TC; 84478-TC; 84484-TC; 85025-TC; 85027-TC; 85610-TC; 85730-TC; 86334; 87040-TC; 87070-TC; 87081-TC; 87086-TC; 87186-TC; 88108-TC; 88305-TC; 89051-TC; 92526; 92611-TC; 92950-TC; 93307-TC; 93970-TC; 94002-TC; 94003-TC; 94640-TC; 94760-TC; 94762-TC; 94799-TC; 97110-TC; 97112-TC; 97116-TC; 97530-TC; 99082-TC; A4216; A4217; A6403; A9563; C9113; C9803; G0378; J0171; J0696; J1644; J1650; J1815; J1940; J2185; J2248; J2270; J2405; J2543; J2920; J3370; J3475; J3480; J3490; J7030; J7040; J7042; J7050; J7060; J7070; P9047; Q9967; U0003